=== PATIENT | male | born 1970 | race Caucasian/White ===

== ENCOUNTER 2019-03-03 21:16 | Emergency (ER) | payer MEDICAID, OTHER ==
[~2019-03-03] VITALS: Ht 175.3 cm; Wt 76.4 kg
[2019-03-03] MEDS ORDERED: INSLAN SQ (21:50)
[2019-03-03] MEDS ORDERED: INSU100V SQ (21:50)
[2019-03-03 22:01] LABS: GLUCOSE,POINT OF CARE 80 MG/DL (70-110)
[2019-03-03 22:55] LABS: GLUCOSE,POINT OF CARE 22 MG/DL (70-110)
[2019-03-03 22:59] LABS: BASOPHILS % (AUTO) 2.2 % (0.0-2.0); EOSINOPHILS % (AUTO) 1.8 % (1.0-6.0); HEMATOCRIT 44.8 % (41-53); HEMOGLOBIN 15.2 g/dL (13.5-17.5); LYMPHOCYTES # (AUTO) 4.1 K/uL (1.0-4.8); LYMPHOCYTES % (AUTO) 48.2 % (22.0-44.0); MEAN CORPUSCULAR HEMOGLOBIN 30.5 pg (26.0-34.0); MEAN CORPUSCULAR VOLUME 90 fL (80-100); MONOCYTES # (AUTO) 0.9 K/uL (0.1-1.0); MONOCYTES % (AUTO) 10.4 % (2.0-9.0); NEUTROPHILS # (AUTO) 3.2 K/uL (1.8-7.7); NEUTROPHILS % (AUTO) 37.4 % (40.0-70.0); PLATELET COUNT (AUTO) 322 K/uL (150-450); RED BLOOD CELL COUNT(AUTO) 4.99 MIL/uL (4.50-5.90); RED CELL DISTRIBUTION WIDTH 16.5 % (11.5-14.5)
[2019-03-03 23:12] LABS: ANION GAP 12 mmol/L (8-16); CALCIUM, TOTAL 10.1 mg/dL (8.8-10.5); CARBON DIOXIDE 29 mmol/L (22-29); CHLORIDE 103 mmol/L (98-107); CREATININE 0.97 mg/dL (0.60-1.30); GLOMERULAR FILTR. RATE CALC > 60 mL/min (>60); POTASSIUM 3.2 mmol/L (3.5-5.1); SODIUM SERUM 144 mmol/L (136-145); UREA NITROGEN, BLOOD 18 mg/dL (7-18)
[2019-03-03 23:13] LABS: AMPHET/METH SCREEN,URINE POSITIVE (NEGATIVE); BARBITURATE SCREEN, URINE NEGATIVE (NEGATIVE); BENZODIAZEPINES SCREEN,URINE NEGATIVE (NEGATIVE); CANNABINOID SCREEN,URINE NEGATIVE (NEGATIVE); COCAINE SCREEN,URINE NEGATIVE (NEGATIVE); METHADONE SCREEN, URINE NEGATIVE (NEGATIVE); OPIATE SCREEN,URINE NEGATIVE (NEGATIVE)
[2019-03-03 23:14] LABS: GLUCOSE,RANDOM 28 mg/dL (70-110)
[2019-03-03 23:15] LABS: PHENCYCLIDINE SCREEN,URINE NEGATIVE (NEGATIVE)
[2019-03-04 00:05] LABS: GLUCOSE,POINT OF CARE 63 MG/DL (70-110)
[2019-03-04 00:20] VITALS: BP 159/94
[2019-03-04 00:26] LABS: GLUCOSE,POINT OF CARE 96 MG/DL (70-110)
[2019-03-04] MEDS ORDERED: CloNIDine HCL 0.2 MG TABLET PO ONE (00:30)
[2019-03-04] MEDS ORDERED: ChlordiazePOXIDE HCL 25 MG CAPSULE PO ONE (00:30)
== END 2019-03-04 01:06 | disposition home or self-care (01) ==
LOC: EMS 21:23
DX: F10.10 Alcohol abuse, uncomplicated (principal); F15.10 Other stimulant abuse, uncomplicated; E10.8 Type 1 diabetes mellitus with unspecified complications; Z79.4 Long term (current) use of insulin; F32.9 Major depressive disorder, single episode, unspecified; E78.00 Pure hypercholesterolemia, unspecified; F17.210 Nicotine dependence, cigarettes, uncomplicated; F14.90 Cocaine use, unspecified, uncomplicated; F12.90 Cannabis use, unspecified, uncomplicated
CPT/HCPCS: 36415; 80048; 80307; 82962; 85025; 99283; G0480

== ENCOUNTER 2019-03-13 09:05 | Emergency (ER) | payer MEDICAID, OTHER ==
[~2019-03-13] VITALS: Ht 177.8 cm; Wt 77.3 kg
[~2019-03-13 09:05] MED LIST: INSLAN SQ; INSU100V SQ
[2019-03-13 09:26] LABS: GLUCOSE,POINT OF CARE 565 MG/DL (70-110)
[2019-03-13] MEDS ORDERED: INSULIN LISPRO 100 UNITS/ML SQ ONE (09:45)
[2019-03-13] MEDS ORDERED: SODIUM CHLORIDE 0.9% 1,000 ML IV ONE (09:45)
[2019-03-13 10:08] LABS: BASOPHILS % (AUTO) 1.1 % (0.0-2.0); EOSINOPHILS % (AUTO) 0.8 % (1.0-6.0); HEMATOCRIT 41.5 % (41-53); HEMOGLOBIN 14.2 g/dL (13.5-17.5); LYMPHOCYTES # (AUTO) 1.7 K/uL (1.0-4.8); LYMPHOCYTES % (AUTO) 37.3 % (22.0-44.0); MEAN CORPUSCULAR HEMOGLOBIN 30.6 pg (26.0-34.0); MEAN CORPUSCULAR HGB CONC 34.2 G/dL (31.0-37.0); MEAN CORPUSCULAR VOLUME 90 fL (80-100); MONOCYTES # (AUTO) 0.4 K/uL (0.1-1.0); MONOCYTES % (AUTO) 8.1 % (2.0-9.0); NEUTROPHILS # (AUTO) 2.5 K/uL (1.8-7.7); NEUTROPHILS % (AUTO) 52.7 % (40.0-70.0); PLATELET COUNT (AUTO) 229 K/uL (150-450); RED BLOOD CELL COUNT(AUTO) 4.64 MIL/uL (4.50-5.90); RED CELL DISTRIBUTION WIDTH 16.1 % (11.5-14.5)
[2019-03-13 10:36] LABS: GLUCOSE,POINT OF CARE 368 MG/DL (70-110)
[2019-03-13 10:49] LABS: ALANINE AMINOTRANSFERASE 36 U/L (12-78); ALBUMIN 3.6 g/dL (3.4-5.0); ALKALINE PHOSPHATASE 91 U/L (46-116); ANION GAP 8 mmol/L (8-16); ASPARTATE AMINOTRANSFERASE 22 U/L (15-37); BILIRUBIN,TOTAL 0.3 mg/dL (0.1-1.0); CALCIUM, TOTAL 9.1 mg/dL (8.8-10.5); CARBON DIOXIDE 27 mmol/L (22-29); CHLORIDE 97 mmol/L (98-107); CREATINE KINASE, TOTAL ONLY 176 U/L (39-308); CREATININE 1.07 mg/dL (0.60-1.30); GLOMERULAR FILTR. RATE CALC > 60 mL/min (>60); POTASSIUM 4.4 mmol/L (3.5-5.1); SODIUM SERUM 132 mmol/L (136-145); TOTAL PROTEIN, SERUM 6.9 g/dL (6.4-8.2); UREA NITROGEN, BLOOD 11 mg/dL (7-18)
[2019-03-13 10:51] LABS: GLUCOSE,RANDOM 447 mg/dL (70-110)
[2019-03-13 10:54] VITALS: BP 142/84
[2019-03-13 11:31] LABS: GLUCOSE,POINT OF CARE 162 MG/DL (70-110)
== END 2019-03-13 11:30 | disposition home or self-care (01) ==
LOC: EMS 09:08
DX: E11.65 Type 2 diabetes mellitus with hyperglycemia (principal); E78.00 Pure hypercholesterolemia, unspecified; F41.9 Anxiety disorder, unspecified; F32.9 Major depressive disorder, single episode, unspecified; F17.210 Nicotine dependence, cigarettes, uncomplicated; F11.90 Opioid use, unspecified, uncomplicated; F15.90 Other stimulant use, unspecified, uncomplicated; Z79.4 Long term (current) use of insulin
CPT/HCPCS: 36415; 80053; 82550; 82962; 85025; 96360; 96372; 99283; J7030; 82948; J1815

== ENCOUNTER 2019-06-30 02:23 | Inpatient (IN) | payer MEDICAID ==
[~2019-06-30] VITALS: Ht 177.8 cm; Wt 77.8 kg
[2019-06-30] MEDS ORDERED: HALOPERIDOL 5 MG TABLET PO PRN (02:45)
[2019-06-30] MEDS ORDERED: MAGNESIUM HYDROXIDE SUSPENSION 30 ML UDCUP PO PRN (04:00)
[2019-06-30] MEDS ORDERED: ACETAMINOPHEN 325 MG TABLET PO PRN (04:00)
[2019-06-30] MEDS ORDERED: LOPERAMIDE HCL 2 MG CAPSULE PO PRN (04:00)
[2019-06-30] MEDS ORDERED: CloNIDine HCL 0.1 MG TABLET PO PRN (04:00)
[2019-06-30] MEDS ORDERED: ALBUTEROL SULFATE HFA 90 MCG/PUFF 8 GM INHALER IH PRN (04:00)
[2019-06-30] MEDS ORDERED: ONDANSETRON HCL 4 MG TABLET PO PRN (04:00)
[2019-06-30] MEDS ORDERED: GuaiFENesin/D-METHORPHAN [SUGAR-FREE] 200-20MG/10 ML SYRUP UDCUP PO PRN (04:00)
[2019-06-30] MEDS ORDERED: NICOTINE 14 MG/24 HOUR PATCH TD PRN (04:00)
[2019-06-30] MEDS ORDERED: PETROLATUM,WHITE 28 GM JELLY TP PRN (04:00)
[2019-06-30] MEDS ORDERED: MAG HYDROX/AL HYDROX/SIMETH ES 30 ML SUSPENSION UDCUP PO PRN (04:00)
[2019-06-30] MEDS ORDERED: IBUPROFEN 400 MG TABLET PO PRN (04:00)
[2019-06-30] MEDS ORDERED: DOCUSATE SODIUM 100 MG CAPSULE PO PRN (04:00)
[2019-06-30] MEDS ORDERED: GLUCAGON,HUMAN RECOMBINANT 1 MG VIAL IM PRN (04:15)
[2019-06-30 04:27] VITALS: BP 162/103
[2019-06-30 06:48] LABS: GLUCOMETER DEV NAME(LOC) BV2S.; GLUCOSE,POINT OF CARE 179 MG/DL (70-110)
[2019-06-30] MEDS: INSULIN LISPRO 100 UNITS/ML SQ PRN (06:51)
[2019-06-30] MEDS: LORazepam 1 MG TABLET PO PRN (08:55)
[2019-06-30 09:06] VITALS: BP 140/92
[2019-06-30 11:06] LABS: GLUCOMETER DEV NAME(LOC) BV2S.; GLUCOSE,POINT OF CARE 101 MG/DL (70-110)
[2019-06-30] MEDS: BuPROPion HCL XL 150 MG ER TABLET PO SCH (12:34)
[2019-06-30] MEDS: SERTRALINE HCL 100 MG TABLET PO SCH (12:34)
[2019-06-30] MEDS: NALTREXONE HCL 50 MG TABLET PO SCH (12:34)
[2019-06-30 16:07] VITALS: BP 131/94
[2019-06-30 16:53] LABS: GLUCOMETER DEV NAME(LOC) BV2S.; GLUCOSE,POINT OF CARE 405 MG/DL (70-110)
[2019-06-30] MEDS ORDERED: INSULIN LISPRO 100 UNITS/ML SQ ONE (17:15)
[2019-06-30 19:22] LABS: GLUCOMETER DEV NAME(LOC) BV2S.; GLUCOSE,POINT OF CARE 161 MG/DL (70-110)
[2019-06-30] MEDS: QUEtiapine FUMARATE 25 MG TABLET PO SCH (21:46)
[2019-06-30] MEDS: INSULIN GLARGINE,HUM.REC.ANLOG 100 UNITS/ML SQ SCH (21:49)
[2019-06-30 22:01] LABS: GLUCOMETER DEV NAME(LOC) BV2S.; GLUCOSE,POINT OF CARE 90 MG/DL (70-110)
[2019-06-30 22:01] LABS: GLUCOMETER DEV NAME(LOC) BV2S.; GLUCOSE,POINT OF CARE 96 MG/DL (70-110)
[2019-07-01 01:04] VITALS: BP 129/86
[2019-07-01 05:55] LABS: GLUCOMETER DEV NAME(LOC) BV2S.; GLUCOSE,POINT OF CARE 176 MG/DL (70-110)
[2019-07-01] MEDS: INSULIN LISPRO 100 UNITS/ML SQ PRN ×4 (06:46→21:12)
[2019-07-01 07:23] LABS: HEMATOCRIT 38.9 % (41-53); HEMOGLOBIN 13.3 g/dL (13.5-17.5); LYMPHOCYTES # (AUTO) 1.9 K/uL (1.0-4.8); LYMPHOCYTES % (AUTO) 28.5 % (22.0-44.0); MEAN CORPUSCULAR HEMOGLOBIN 28.7 pg (26.0-34.0); MEAN CORPUSCULAR HGB CONC 34.2 G/dL (31.0-37.0); MEAN CORPUSCULAR VOLUME 84 fL (80-100); MONOCYTES % (AUTO) 14.3 % (2.0-9.0); NEUTROPHILS # (AUTO) 3.6 K/uL (1.8-7.7); NEUTROPHILS % (AUTO) 54.2 % (40.0-70.0); PLATELET COUNT (AUTO) 283 K/uL (150-450); RED BLOOD CELL COUNT(AUTO) 4.62 MIL/uL (4.50-5.90)
[2019-07-01 07:58] LABS: ALANINE AMINOTRANSFERASE 69 U/L (12-78); ALBUMIN 3.9 g/dL (3.4-5.0); ALKALINE PHOSPHATASE 117 U/L (46-116); ANION GAP 6 mmol/L (8-16); ASPARTATE AMINOTRANSFERASE 33 U/L (15-37); BILIRUBIN,TOTAL 0.5 mg/dL (0.1-1.0); CALCIUM, TOTAL 9.3 mg/dL (8.8-10.5); CARBON DIOXIDE 32 mmol/L (22-29); CHLORIDE 99 mmol/L (98-107); CHOL/HDL RATIO 3.4 (4.2-7.3); CHOLESTEROL 215 mg/dL (131-200); CREATININE 0.92 mg/dL (0.60-1.30); FREE T4 (FREE THYROXINE) 1.17 ng/dL (0.76-1.46); GLOMERULAR FILTR. RATE CALC > 60 mL/min (>60); GLUCOSE,RANDOM 155 mg/dL (70-110); HDL CHOLESTEROL 63 mg/dL (40-60); LDL CHOL (CALC.) 130 mg/dL (0-130); POTASSIUM 4.1 mmol/L (3.5-5.1); SODIUM SERUM 137 mmol/L (136-145); THYROID STIMULATING HORMONE 2.05 uIU/mL (0.36-3.74); TRIGLYCERIDES 111 mg/dL (15-150); UREA NITROGEN, BLOOD 13 mg/dL (7-18)
[2019-07-01 08:26] VITALS: BP 136/77
[2019-07-01] MEDS: NALTREXONE HCL 50 MG TABLET PO SCH (08:30)
[2019-07-01] MEDS: SERTRALINE HCL 100 MG TABLET PO SCH (08:30)
[2019-07-01] MEDS: BuPROPion HCL XL 150 MG ER TABLET PO SCH (08:30)
[2019-07-01] MEDS: LORazepam 1 MG TABLET PO PRN ×2 (08:30→16:53)
[2019-07-01 11:13] LABS: GLUCOMETER DEV NAME(LOC) BV2S.; GLUCOSE,POINT OF CARE 293 MG/DL (70-110)
[2019-07-01 16:57] LABS: GLUCOMETER DEV NAME(LOC) BV2S.; GLUCOSE,POINT OF CARE 385 MG/DL (70-110)
[2019-07-01 18:11] VITALS: BP 111/67
[2019-07-01] MEDS: INSULIN GLARGINE,HUM.REC.ANLOG 100 UNITS/ML SQ SCH (21:13)
[2019-07-01] MEDS: QUEtiapine FUMARATE 25 MG TABLET PO SCH (21:14)
[2019-07-01 21:20] LABS: GLUCOMETER DEV NAME(LOC) BV2S.; GLUCOSE,POINT OF CARE 233 MG/DL (70-110)
[2019-07-02 06:31] VITALS: BP 121/74
[2019-07-02 06:31] LABS: GLUCOMETER DEV NAME(LOC) BV2S.; GLUCOSE,POINT OF CARE 134 MG/DL (70-110)
[2019-07-02] MEDS: NALTREXONE HCL 50 MG TABLET PO SCH (08:31)
[2019-07-02] MEDS: SERTRALINE HCL 100 MG TABLET PO SCH (08:32)
[2019-07-02 08:48] VITALS: BP 114/69
[2019-07-02] MEDS ORDERED: BuPROPion HCL XL 150 MG ER TABLET PO SCH (09:00)
[2019-07-02] MEDS: INSULIN LISPRO 100 UNITS/ML SQ PRN ×3 (10:57→20:32)
[2019-07-02 11:16] LABS: GLUCOMETER DEV NAME(LOC) BV2S.; GLUCOSE,POINT OF CARE 350 MG/DL (70-110)
[2019-07-02] MEDS: BusPIRone HCL 5 MG TABLET PO SCH ×2 (12:37→16:35)
[2019-07-02 16:08] VITALS: BP 116/71
[2019-07-02 17:02] LABS: GLUCOMETER DEV NAME(LOC) BV2S.; GLUCOSE,POINT OF CARE 183 MG/DL (70-110)
[2019-07-02] MEDS: QUEtiapine FUMARATE 25 MG TABLET PO SCH (20:29)
[2019-07-02] MEDS: INSULIN GLARGINE,HUM.REC.ANLOG 100 UNITS/ML SQ SCH (20:32)
[2019-07-02 21:08] LABS: GLUCOMETER DEV NAME(LOC) BV2S.; GLUCOSE,POINT OF CARE 251 MG/DL (70-110)
[2019-07-03 06:22] VITALS: BP 106/68
[2019-07-03 06:32] LABS: GLUCOMETER DEV NAME(LOC) BV2S.; GLUCOSE,POINT OF CARE 196 MG/DL (70-110)
[2019-07-03] MEDS: INSULIN LISPRO 100 UNITS/ML SQ PRN ×4 (06:58→20:28)
[2019-07-03 08:32] VITALS: BP 120/75
[2019-07-03] MEDS: BuPROPion HCL XL 150 MG ER TABLET PO SCH (09:01)
[2019-07-03] MEDS: SERTRALINE HCL 100 MG TABLET PO SCH (09:04)
[2019-07-03] MEDS: NALTREXONE HCL 50 MG TABLET PO SCH (09:04)
[2019-07-03] MEDS: BusPIRone HCL 5 MG TABLET PO SCH ×2 (09:05→11:56)
[2019-07-03] MEDS ORDERED: LEVO125T95 PO (12:56)
[2019-07-03 14:42] LABS: GLUCOMETER DEV NAME(LOC) BV2S.; GLUCOSE,POINT OF CARE 399 MG/DL (70-110)
[2019-07-03] MEDS: LORazepam 1 MG TABLET PO PRN ×2 (14:51→18:36)
[2019-07-03 16:52] VITALS: BP 103/66
[2019-07-03] MEDS: BusPIRone HCL 10 MG TABLET PO SCH (17:36)
[2019-07-03 19:09] LABS: GLUCOMETER DEV NAME(LOC) BV2S.; GLUCOSE,POINT OF CARE 378 MG/DL (70-110)
[2019-07-03 20:44] LABS: GLUCOMETER DEV NAME(LOC) BV2S.; GLUCOSE,POINT OF CARE 321 MG/DL (70-110)
[2019-07-03] MEDS: QUEtiapine FUMARATE 25 MG TABLET PO SCH (21:23)
[2019-07-03] MEDS: INSULIN GLARGINE,HUM.REC.ANLOG 100 UNITS/ML SQ SCH (21:27)
[2019-07-04 00:07] VITALS: BP 104/64
[2019-07-04 07:00] LABS: GLUCOMETER DEV NAME(LOC) BV2S.; GLUCOSE,POINT OF CARE 137 MG/DL (70-110)
[2019-07-04 08:13] VITALS: BP 100/61
[2019-07-04] MEDS: BusPIRone HCL 10 MG TABLET PO SCH ×3 (08:44→17:04)
[2019-07-04] MEDS: NALTREXONE HCL 50 MG TABLET PO SCH (08:44)
[2019-07-04] MEDS: BuPROPion HCL XL 150 MG ER TABLET PO SCH (08:44)
[2019-07-04] MEDS: SERTRALINE HCL 100 MG TABLET PO SCH (08:45)
[2019-07-04 11:29] LABS: GLUCOMETER DEV NAME(LOC) BV2S.; GLUCOSE,POINT OF CARE 498 MG/DL (70-110)
[2019-07-04] MEDS ORDERED: INSULIN LISPRO 100 UNITS/ML SQ ONE (12:00)
[2019-07-04] MEDS: LORazepam 1 MG TABLET PO PRN ×2 (13:17→17:04)
[2019-07-04 16:10] VITALS: BP 116/71
[2019-07-04 16:32] LABS: GLUCOMETER DEV NAME(LOC) BV2S.; GLUCOSE,POINT OF CARE 230 MG/DL (70-110)
[2019-07-04] MEDS: INSULIN LISPRO 100 UNITS/ML SQ PRN ×2 (17:09→20:53)
[2019-07-04 19:49] LABS: GLUCOMETER DEV NAME(LOC) BV2S.; GLUCOSE,POINT OF CARE 289 MG/DL (70-110)
[2019-07-04] MEDS: QUEtiapine FUMARATE 25 MG TABLET PO SCH (20:46)
[2019-07-04] MEDS ORDERED: INSULIN GLARGINE,HUM.REC.ANLOG 100 UNITS/ML SQ SCH (21:00)
[2019-07-04 23:39] LABS: GLUCOMETER DEV NAME(LOC) BV2S.; GLUCOSE,POINT OF CARE 66 MG/DL (70-110)
[2019-07-05 00:40] LABS: GLUCOMETER DEV NAME(LOC) BV2S.; GLUCOSE,POINT OF CARE 191 MG/DL (70-110)
[2019-07-05 06:04] VITALS: BP 114/72
[2019-07-05 06:22] LABS: GLUCOMETER DEV NAME(LOC) BV2S.; GLUCOSE,POINT OF CARE 182 MG/DL (70-110)
[2019-07-05] MEDS: INSULIN LISPRO 100 UNITS/ML SQ PRN ×2 (06:43→10:57)
[2019-07-05] MEDS: BusPIRone HCL 10 MG TABLET PO SCH ×3 (08:30→17:03)
[2019-07-05] MEDS: SERTRALINE HCL 100 MG TABLET PO SCH (08:30)
[2019-07-05] MEDS: NALTREXONE HCL 50 MG TABLET PO SCH (08:30)
[2019-07-05] MEDS: BuPROPion HCL XL 150 MG ER TABLET PO SCH (08:31)
[2019-07-05 08:41] VITALS: BP 108/67
[2019-07-05] MEDS: LORazepam 1 MG TABLET PO PRN ×2 (10:09→15:11)
[2019-07-05 11:06] LABS: GLUCOMETER DEV NAME(LOC) BV2S.; GLUCOSE,POINT OF CARE 360 MG/DL (70-110)
[2019-07-05] MEDS ORDERED: GLUCAGON,HUMAN RECOMBINANT 1 MG VIAL IM PRN (15:45)
[2019-07-05 16:00] VITALS: BP 131/71
[2019-07-05] MEDS ORDERED: INSULIN LISPRO 100 UNITS/ML SQ ONE ×2 (17:00→19:00)
[2019-07-05 17:09] LABS: GLUCOMETER DEV NAME(LOC) BV2S.; GLUCOSE,POINT OF CARE 465 MG/DL (70-110)
[2019-07-05 18:51] LABS: GLUCOMETER DEV NAME(LOC) BV2S.; GLUCOSE,POINT OF CARE 417 MG/DL (70-110)
[2019-07-05] MEDS: QUEtiapine FUMARATE 25 MG TABLET PO SCH (20:13)
[2019-07-05] MEDS: INSULIN GLARGINE,HUM.REC.ANLOG 100 UNITS/ML SQ SCH (20:16)
[2019-07-05 20:38] LABS: GLUCOMETER DEV NAME(LOC) BV2S.; GLUCOSE,POINT OF CARE 182 MG/DL (70-110)
[2019-07-05] MEDS ORDERED: INSULIN GLARGINE,HUM.REC.ANLOG 100 UNITS/ML SQ SCH (21:00)
[2019-07-06 00:50] VITALS: BP 109/62
[2019-07-06] MEDS ORDERED: PNEUMOCOCCAL VACCINE POLYVALENT 0.5 ML VIAL [PPSV23] IM ONE (01:15)
[2019-07-06 06:29] LABS: GLUCOMETER DEV NAME(LOC) BV2S.; GLUCOSE,POINT OF CARE 147 MG/DL (70-110)
[2019-07-06] MEDS: INSULIN LISPRO 100 UNITS/ML SQ PRN ×3 (06:40→17:11)
[2019-07-06] MEDS: SERTRALINE HCL 100 MG TABLET PO SCH (08:35)
[2019-07-06] MEDS: BuPROPion HCL XL 150 MG ER TABLET PO SCH (08:35)
[2019-07-06] MEDS: NALTREXONE HCL 50 MG TABLET PO SCH (08:35)
[2019-07-06] MEDS: BusPIRone HCL 10 MG TABLET PO SCH ×3 (08:35→17:08)
[2019-07-06 08:48] VITALS: BP 111/63
[2019-07-06] MEDS: LORazepam 1 MG TABLET PO PRN ×2 (10:58→17:08)
[2019-07-06 11:16] LABS: GLUCOMETER DEV NAME(LOC) BV2S.; GLUCOSE,POINT OF CARE 395 MG/DL (70-110)
[2019-07-06 18:47] VITALS: BP 112/70
[2019-07-06] MEDS: INSULIN GLARGINE,HUM.REC.ANLOG 100 UNITS/ML SQ SCH (20:25)
[2019-07-06] MEDS: QUEtiapine FUMARATE 25 MG TABLET PO SCH (20:25)
[2019-07-06 21:10] LABS: GLUCOMETER DEV NAME(LOC) BV2S.; GLUCOSE,POINT OF CARE 268 MG/DL (70-110)
[2019-07-06 21:10] LABS: GLUCOMETER DEV NAME(LOC) BV2S.; GLUCOSE,POINT OF CARE 143 MG/DL (70-110)
[2019-07-07 05:57] VITALS: BP 105/76
[2019-07-07 06:25] LABS: GLUCOMETER DEV NAME(LOC) BV2S.; GLUCOSE,POINT OF CARE 234 MG/DL (70-110)
[2019-07-07] MEDS: INSULIN LISPRO 100 UNITS/ML SQ PRN ×4 (06:41→20:21)
[2019-07-07 08:28] VITALS: BP 110/79
[2019-07-07] MEDS: SERTRALINE HCL 100 MG TABLET PO SCH (08:45)
[2019-07-07] MEDS: BusPIRone HCL 10 MG TABLET PO SCH ×3 (08:45→16:38)
[2019-07-07] MEDS: NALTREXONE HCL 50 MG TABLET PO SCH (08:45)
[2019-07-07] MEDS: BuPROPion HCL XL 150 MG ER TABLET PO SCH (08:45)
[2019-07-07] MEDS: LORazepam 1 MG TABLET PO PRN ×2 (09:34→17:22)
[2019-07-07 11:11] LABS: GLUCOMETER DEV NAME(LOC) BV2S.; GLUCOSE,POINT OF CARE 306 MG/DL (70-110)
[2019-07-07 16:18] VITALS: BP 138/73
[2019-07-07 17:18] LABS: GLUCOMETER DEV NAME(LOC) BV2S.; GLUCOSE,POINT OF CARE 319 MG/DL (70-110)
[2019-07-07] MEDS: QUEtiapine FUMARATE 25 MG TABLET PO SCH (20:18)
[2019-07-07] MEDS: INSULIN GLARGINE,HUM.REC.ANLOG 100 UNITS/ML SQ SCH (20:21)
[2019-07-07 20:47] LABS: GLUCOMETER DEV NAME(LOC) BV2S.; GLUCOSE,POINT OF CARE 344 MG/DL (70-110)
[2019-07-07] MEDS: ZOLPIDEM TARTRATE 10 MG TABLET PO PRN (21:55)
[2019-07-08 06:19] VITALS: BP 111/75
[2019-07-08] MEDS: INSULIN LISPRO 100 UNITS/ML SQ PRN ×4 (06:24→20:14)
[2019-07-08 06:34] LABS: GLUCOMETER DEV NAME(LOC) BV2S.; GLUCOSE,POINT OF CARE 171 MG/DL (70-110)
[2019-07-08] MEDS: LORazepam 1 MG TABLET PO PRN ×2 (07:11→14:19)
[2019-07-08 08:32] VITALS: BP 107/70
[2019-07-08] MEDS: SERTRALINE HCL 100 MG TABLET PO SCH (08:33)
[2019-07-08] MEDS: NALTREXONE HCL 50 MG TABLET PO SCH (08:33)
[2019-07-08] MEDS: BusPIRone HCL 10 MG TABLET PO SCH ×3 (08:33→16:37)
[2019-07-08] MEDS: BuPROPion HCL XL 150 MG ER TABLET PO SCH (08:33)
[2019-07-08 11:08] LABS: GLUCOMETER DEV NAME(LOC) BV2S.; GLUCOSE,POINT OF CARE 343 MG/DL (70-110)
[2019-07-08 16:24] VITALS: BP 103/65
[2019-07-08] MEDS: INSULIN GLARGINE,HUM.REC.ANLOG 100 UNITS/ML SQ SCH (16:39)
[2019-07-08 17:08] LABS: GLUCOMETER DEV NAME(LOC) BV2S.; GLUCOSE,POINT OF CARE 249 MG/DL (70-110)
[2019-07-08] MEDS: QUEtiapine FUMARATE 25 MG TABLET PO SCH (20:08)
[2019-07-08 20:56] LABS: GLUCOMETER DEV NAME(LOC) BV2S.; GLUCOSE,POINT OF CARE 226 MG/DL (70-110)
[2019-07-09 03:59] VITALS: BP 115/70
[2019-07-09] MEDS: LORazepam 1 MG TABLET PO PRN ×3 (04:01→21:06)
[2019-07-09 06:26] LABS: GLUCOMETER DEV NAME(LOC) BV2S.; GLUCOSE,POINT OF CARE 189 MG/DL (70-110)
[2019-07-09] MEDS: INSULIN LISPRO 100 UNITS/ML SQ PRN ×2 (07:15→10:56)
[2019-07-09] MEDS: BusPIRone HCL 10 MG TABLET PO SCH ×3 (09:23→17:07)
[2019-07-09] MEDS: BuPROPion HCL XL 150 MG ER TABLET PO SCH (09:24)
[2019-07-09] MEDS: SERTRALINE HCL 100 MG TABLET PO SCH (09:24)
[2019-07-09] MEDS: NALTREXONE HCL 50 MG TABLET PO SCH (09:24)
[2019-07-09] MEDS: INSULIN GLARGINE,HUM.REC.ANLOG 100 UNITS/ML SQ SCH ×2 (09:35→17:19)
[2019-07-09 10:03] LABS: GLUCOMETER DEV NAME(LOC) BV2S.; GLUCOSE,POINT OF CARE 323 MG/DL (70-110)
[2019-07-09 10:35] VITALS: BP 120/74
[2019-07-09 11:11] LABS: GLUCOMETER DEV NAME(LOC) BV2S.; GLUCOSE,POINT OF CARE 364 MG/DL (70-110)
[2019-07-09 16:10] VITALS: BP 141/83
[2019-07-09 17:03] LABS: GLUCOMETER DEV NAME(LOC) BV2S.; GLUCOSE,POINT OF CARE 88 MG/DL (70-110)
[2019-07-09] MEDS: QUEtiapine FUMARATE 25 MG TABLET PO SCH (20:04)
[2019-07-09 21:07] LABS: GLUCOMETER DEV NAME(LOC) BV2S.; GLUCOSE,POINT OF CARE 94 MG/DL (70-110)
[2019-07-10 06:27] LABS: GLUCOMETER DEV NAME(LOC) BV2S.; GLUCOSE,POINT OF CARE 74 MG/DL (70-110)
[2019-07-10 07:11] VITALS: BP 105/75
[2019-07-10 08:00] VITALS: BP 110/66
[2019-07-10] MEDS: NALTREXONE HCL 50 MG TABLET PO SCH (08:08)
[2019-07-10] MEDS: LORazepam 1 MG TABLET PO PRN ×3 (08:08→20:41)
[2019-07-10] MEDS: SERTRALINE HCL 100 MG TABLET PO SCH (08:08)
[2019-07-10] MEDS: BusPIRone HCL 10 MG TABLET PO SCH ×3 (08:08→17:07)
[2019-07-10] MEDS: BuPROPion HCL XL 150 MG ER TABLET PO SCH (08:08)
[2019-07-10] MEDS: INSULIN GLARGINE,HUM.REC.ANLOG 100 UNITS/ML SQ SCH ×2 (09:13→16:17)
[2019-07-10 11:21] LABS: GLUCOMETER DEV NAME(LOC) BV2S.; GLUCOSE,POINT OF CARE 267 MG/DL (70-110)
[2019-07-10] MEDS: INSULIN LISPRO 100 UNITS/ML SQ PRN ×2 (13:48→16:19)
[2019-07-10 16:08] VITALS: BP 123/86
[2019-07-10 16:22] LABS: GLUCOMETER DEV NAME(LOC) BV2S.; GLUCOSE,POINT OF CARE 418 MG/DL (70-110)
[2019-07-10] MEDS: QUEtiapine FUMARATE 25 MG TABLET PO SCH (20:04)
[2019-07-10 20:21] LABS: GLUCOMETER DEV NAME(LOC) BV2S.; GLUCOSE,POINT OF CARE 96 MG/DL (70-110)
[2019-07-11 06:09] VITALS: BP 124/76
[2019-07-11 06:22] LABS: GLUCOMETER DEV NAME(LOC) BV2S.; GLUCOSE,POINT OF CARE 74 MG/DL (70-110)
[2019-07-11] MEDS: BuPROPion HCL XL 150 MG ER TABLET PO SCH (08:08)
[2019-07-11] MEDS: SERTRALINE HCL 100 MG TABLET PO SCH (08:09)
[2019-07-11] MEDS: NALTREXONE HCL 50 MG TABLET PO SCH (08:09)
[2019-07-11] MEDS: BusPIRone HCL 10 MG TABLET PO SCH ×3 (08:09→17:55)
[2019-07-11 08:23] VITALS: BP 125/69
[2019-07-11] MEDS: INSULIN GLARGINE,HUM.REC.ANLOG 100 UNITS/ML SQ SCH ×2 (08:52→18:04)
[2019-07-11] MEDS: INSULIN LISPRO 100 UNITS/ML SQ PRN ×3 (11:33→20:21)
[2019-07-11 11:40] LABS: GLUCOMETER DEV NAME(LOC) BV2S.; GLUCOSE,POINT OF CARE 394 MG/DL (70-110)
[2019-07-11] MEDS: LORazepam 1 MG TABLET PO PRN ×3 (13:06→21:57)
[2019-07-11] MEDS ORDERED: QUET25TA34 PO (15:21)
[2019-07-11] MEDS ORDERED: BUSP10TA23 PO (15:21)
[2019-07-11] MEDS ORDERED: BUPR-47 PO (15:21)
[2019-07-11] MEDS ORDERED: NALT50TA PO (15:21)
[2019-07-11 16:43] VITALS: BP 120/72
[2019-07-11] MEDS: QUEtiapine FUMARATE 25 MG TABLET PO SCH (20:20)
[2019-07-11 20:28] LABS: GLUCOMETER DEV NAME(LOC) BV2S.; GLUCOSE,POINT OF CARE 274 MG/DL (70-110)
[2019-07-11 20:28] LABS: GLUCOMETER DEV NAME(LOC) BV2S.; GLUCOSE,POINT OF CARE 240 MG/DL (70-110)
[2019-07-11] MEDS: ZOLPIDEM TARTRATE 10 MG TABLET PO PRN (21:00)
[2019-07-12 00:23] VITALS: BP_SYST 112; BP_SYST 130; BP_DIAS 69; BP_DIAS 77
[2019-07-12 06:21] LABS: GLUCOMETER DEV NAME(LOC) BV2S.; GLUCOSE,POINT OF CARE 212 MG/DL (70-110)
[2019-07-12] MEDS: INSULIN LISPRO 100 UNITS/ML SQ PRN ×4 (06:43→20:28)
[2019-07-12] MEDS: SERTRALINE HCL 100 MG TABLET PO SCH (08:37)
[2019-07-12] MEDS: BuPROPion HCL XL 150 MG ER TABLET PO SCH (08:37)
[2019-07-12] MEDS: BusPIRone HCL 10 MG TABLET PO SCH ×3 (08:37→16:41)
[2019-07-12] MEDS: NALTREXONE HCL 50 MG TABLET PO SCH (08:37)
[2019-07-12] MEDS: INSULIN GLARGINE,HUM.REC.ANLOG 100 UNITS/ML SQ SCH ×2 (08:46→16:51)
[2019-07-12 09:22] VITALS: BP 128/78
[2019-07-12 11:51] LABS: GLUCOMETER DEV NAME(LOC) BV2S.; GLUCOSE,POINT OF CARE 209 MG/DL (70-110)
[2019-07-12] MEDS ORDERED: SERT100T12 PO (13:00)
[2019-07-12 16:19] VITALS: BP 124/79
[2019-07-12] MEDS: LORazepam 1 MG TABLET PO PRN ×2 (16:40→21:03)
[2019-07-12 16:57] LABS: GLUCOMETER DEV NAME(LOC) BV2S.; GLUCOSE,POINT OF CARE 246 MG/DL (70-110)
[2019-07-12 20:33] LABS: GLUCOMETER DEV NAME(LOC) BV2S.; GLUCOSE,POINT OF CARE 288 MG/DL (70-110)
[2019-07-12] MEDS: QUEtiapine FUMARATE 25 MG TABLET PO SCH (21:03)
[2019-07-12 22:18] LABS: GLUCOMETER DEV NAME(LOC) BV2S.; GLUCOSE,POINT OF CARE 69 MG/DL (70-110)
[2019-07-13 00:27] VITALS: BP 109/74
[2019-07-13 06:30] LABS: GLUCOMETER DEV NAME(LOC) BV2S.; GLUCOSE,POINT OF CARE 173 MG/DL (70-110)
[2019-07-13] MEDS: BusPIRone HCL 10 MG TABLET PO SCH (08:15)
[2019-07-13] MEDS: SERTRALINE HCL 100 MG TABLET PO SCH (08:15)
[2019-07-13] MEDS: BuPROPion HCL XL 150 MG ER TABLET PO SCH (08:15)
[2019-07-13] MEDS: NALTREXONE HCL 50 MG TABLET PO SCH (08:15)
[2019-07-13] MEDS: INSULIN GLARGINE,HUM.REC.ANLOG 100 UNITS/ML SQ SCH (08:19)
[2019-07-13 08:31] VITALS: BP 127/80
[2019-07-13] MEDS ORDERED: INSLAN SQ (09:05)
[2019-07-13 11:25] LABS: HIV 1-2 SCREEN 4TH GEN W/RFLX Non Reactive (Non Reactive)
== END 2019-07-13 09:50 | disposition home or self-care (01) | DRG 751 ==
LOC: B2S 03:00
PROVIDERS: ADMIT Psychiatry & Neurology Psychiatry; ATTEND Psychiatry & Neurology Psychiatry
DX: F33.2 Major depressive disorder, recurrent severe without psychotic features (principal); R45.851 Suicidal ideations; E11.9 Type 2 diabetes mellitus without complications; D64.9 Anemia, unspecified; F10.129 Alcohol abuse with intoxication, unspecified; F17.200 Nicotine dependence, unspecified, uncomplicated; F41.9 Anxiety disorder, unspecified; J44.9 Chronic obstructive pulmonary disease, unspecified; R45.87 Impulsiveness; Z59.0 Homelessness; Z79.899 Other long term (current) drug therapy
CPT/HCPCS: 83036; 84439; 84443; 86803; 87081; 87350; 87389; J1815

== ENCOUNTER 2019-07-25 14:26 | Inpatient (IN) | payer MEDICAID ==
[~2019-07-25] VITALS: Ht 177.8 cm; Wt 73.9 kg
[~2019-07-25 14:26] MED LIST changes: +BUPR-47 PO; +BUSP10TA23 PO; +NALT50TA PO; +QUET25TA34 PO; +SERT100T12 PO
[2019-07-25] MEDS ORDERED: QUET25TA PO (16:06)
[2019-07-25] MEDS ORDERED: BUSP10TA23 PO (16:06)
[2019-07-25] MEDS ORDERED: NALT50TA6 PO (16:06)
[2019-07-25] MEDS ORDERED: BUPR450T3 PO (16:06)
[2019-07-25 16:43] VITALS: BP 130/84
[2019-07-25] MEDS ORDERED: HALOPERIDOL 5 MG TABLET PO PRN (16:45)
[2019-07-25 17:16] VITALS: BP 125/74
[2019-07-25] MEDS: LORazepam 2 MG TABLET PO PRN (17:24)
[2019-07-25] MEDS ORDERED: GLUCAGON,HUMAN RECOMBINANT 1 MG VIAL IM PRN (18:30)
[2019-07-25] MEDS ORDERED: PNEUMOCOCCAL VACCINE POLYVALENT 0.5 ML VIAL [PPSV23] IM ONE (18:30)
[2019-07-25] MEDS: INSULIN LISPRO 100 UNITS/ML SQ PRN (21:53)
[2019-07-25 21:56] LABS: GLUCOMETER DEV NAME(LOC) BV3S.; GLUCOSE,POINT OF CARE 277 MG/DL (70-110)
[2019-07-26 06:27] VITALS: BP 114/71
[2019-07-26 06:49] LABS: GLUCOMETER DEV NAME(LOC) BV3S.; GLUCOSE,POINT OF CARE 300 MG/DL (70-110)
[2019-07-26] MEDS: INSULIN LISPRO 100 UNITS/ML SQ PRN ×4 (07:06→21:34)
[2019-07-26 08:49] VITALS: BP 117/65
[2019-07-26] MEDS ORDERED: INSULIN GLARGINE,HUM.REC.ANLOG 100 UNITS/ML SQ SCH (09:00)
[2019-07-26] MEDS ORDERED: CloNIDine HCL 0.1 MG TABLET PO PRN (10:00)
[2019-07-26] MEDS ORDERED: MAGNESIUM HYDROXIDE SUSPENSION 30 ML UDCUP PO PRN (10:00)
[2019-07-26] MEDS ORDERED: DOCUSATE SODIUM 100 MG CAPSULE PO PRN (10:00)
[2019-07-26] MEDS ORDERED: ACETAMINOPHEN 325 MG TABLET PO PRN (10:00)
[2019-07-26] MEDS ORDERED: ALBUTEROL SULFATE HFA 90 MCG/PUFF 8 GM INHALER IH PRN (10:00)
[2019-07-26] MEDS ORDERED: NICOTINE 14 MG/24 HOUR PATCH TD PRN (10:00)
[2019-07-26] MEDS ORDERED: ONDANSETRON HCL 4 MG TABLET PO PRN (10:00)
[2019-07-26] MEDS ORDERED: IBUPROFEN 400 MG TABLET PO PRN (10:00)
[2019-07-26] MEDS ORDERED: PETROLATUM,WHITE 28 GM JELLY TP PRN (10:00)
[2019-07-26] MEDS ORDERED: MAG HYDROX/AL HYDROX/SIMETH ES 30 ML SUSPENSION UDCUP PO PRN (10:00)
[2019-07-26] MEDS ORDERED: LOPERAMIDE HCL 2 MG CAPSULE PO PRN (10:00)
[2019-07-26] MEDS: BusPIRone HCL 10 MG TABLET PO SCH ×2 (14:07→16:52)
[2019-07-26] MEDS: LORazepam 2 MG TABLET PO PRN (14:16)
[2019-07-26 16:28] VITALS: BP 113/64
[2019-07-26] MEDS: INSULIN GLARGINE,HUM.REC.ANLOG 100 UNITS/ML SQ SCH (16:55)
[2019-07-26 17:30] LABS: GLUCOMETER DEV NAME(LOC) BV3S.; GLUCOSE,POINT OF CARE 287 MG/DL (70-110)
[2019-07-26 17:30] LABS: GLUCOMETER DEV NAME(LOC) BV3S.; GLUCOSE,POINT OF CARE 335 MG/DL (70-110)
[2019-07-26] MEDS: QUEtiapine FUMARATE 25 MG TABLET PO SCH (21:17)
[2019-07-26 21:19] LABS: GLUCOMETER DEV NAME(LOC) BV2S.; GLUCOSE,POINT OF CARE 335 MG/DL (70-110)
[2019-07-26] MEDS: ZOLPIDEM TARTRATE 10 MG TABLET PO PRN (22:39)
[2019-07-27 00:19] VITALS: BP 104/63
[2019-07-27 06:24] LABS: GLUCOMETER DEV NAME(LOC) BV2S.; GLUCOSE,POINT OF CARE 254 MG/DL (70-110)
[2019-07-27] MEDS: INSULIN LISPRO 100 UNITS/ML SQ PRN ×4 (06:50→21:11)
[2019-07-27 08:11] VITALS: BP 113/62
[2019-07-27] MEDS: BuPROPion HCL XL 150 MG ER TABLET PO SCH (08:25)
[2019-07-27] MEDS: BusPIRone HCL 10 MG TABLET PO SCH ×3 (08:25→16:11)
[2019-07-27] MEDS: SERTRALINE HCL 100 MG TABLET PO SCH (08:25)
[2019-07-27] MEDS: NALTREXONE HCL 50 MG TABLET PO SCH (08:25)
[2019-07-27] MEDS: INSULIN GLARGINE,HUM.REC.ANLOG 100 UNITS/ML SQ SCH (08:33)
[2019-07-27] MEDS: LORazepam 2 MG TABLET PO PRN ×2 (11:22→16:17)
[2019-07-27 11:40] LABS: GLUCOMETER DEV NAME(LOC) BV2S.; GLUCOSE,POINT OF CARE 215 MG/DL (70-110)
[2019-07-27 16:01] VITALS: BP 107/60
[2019-07-27 16:30] LABS: GLUCOMETER DEV NAME(LOC) BV2S.; GLUCOSE,POINT OF CARE 277 MG/DL (70-110)
[2019-07-27] MEDS: QUEtiapine FUMARATE 25 MG TABLET PO SCH (20:14)
[2019-07-27 20:25] LABS: GLUCOMETER DEV NAME(LOC) BV2S.; GLUCOSE,POINT OF CARE 389 MG/DL (70-110)
[2019-07-27] MEDS: ZOLPIDEM TARTRATE 10 MG TABLET PO PRN (21:03)
[2019-07-28 01:09] VITALS: BP 99/60
[2019-07-28 06:20] LABS: GLUCOMETER DEV NAME(LOC) BV2S.; GLUCOSE,POINT OF CARE 318 MG/DL (70-110)
[2019-07-28] MEDS: INSULIN LISPRO 100 UNITS/ML SQ PRN ×4 (06:45→20:27)
[2019-07-28 08:03] VITALS: BP 124/64
[2019-07-28] MEDS: BuPROPion HCL XL 150 MG ER TABLET PO SCH (08:48)
[2019-07-28] MEDS: NALTREXONE HCL 50 MG TABLET PO SCH (08:48)
[2019-07-28] MEDS: SERTRALINE HCL 100 MG TABLET PO SCH (08:48)
[2019-07-28] MEDS: BusPIRone HCL 10 MG TABLET PO SCH ×3 (08:48→16:48)
[2019-07-28] MEDS: INSULIN GLARGINE,HUM.REC.ANLOG 100 UNITS/ML SQ SCH ×2 (08:56→17:16)
[2019-07-28 11:09] LABS: GLUCOMETER DEV NAME(LOC) BV2S.; GLUCOSE,POINT OF CARE 330 MG/DL (70-110)
[2019-07-28] MEDS: LORazepam 2 MG TABLET PO PRN ×2 (11:56→18:44)
[2019-07-28 16:08] VITALS: BP 122/77
[2019-07-28 17:12] LABS: GLUCOMETER DEV NAME(LOC) BV2S.; GLUCOSE,POINT OF CARE 269 MG/DL (70-110)
[2019-07-28] MEDS: QUEtiapine FUMARATE 25 MG TABLET PO SCH (20:00)
[2019-07-28] MEDS: ZOLPIDEM TARTRATE 10 MG TABLET PO PRN (20:00)
[2019-07-28 20:05] LABS: GLUCOMETER DEV NAME(LOC) BV2S.; GLUCOSE,POINT OF CARE 215 MG/DL (70-110)
[2019-07-28 20:31] VITALS: BP 120/76
[2019-07-29 02:00] VITALS: BP 113/65
[2019-07-29 03:49] LABS: GLUCOMETER DEV NAME(LOC) BV2S.; GLUCOSE,POINT OF CARE 120 MG/DL (70-110)
[2019-07-29 06:25] LABS: GLUCOMETER DEV NAME(LOC) BV2S.; GLUCOSE,POINT OF CARE 97 MG/DL (70-110)
[2019-07-29 08:39] VITALS: BP 115/71
[2019-07-29] MEDS: BusPIRone HCL 10 MG TABLET PO SCH ×3 (08:43→16:53)
[2019-07-29] MEDS: BuPROPion HCL XL 150 MG ER TABLET PO SCH (08:43)
[2019-07-29] MEDS: SERTRALINE HCL 100 MG TABLET PO SCH (08:43)
[2019-07-29] MEDS: NALTREXONE HCL 50 MG TABLET PO SCH (08:43)
[2019-07-29] MEDS: INSULIN GLARGINE,HUM.REC.ANLOG 100 UNITS/ML SQ SCH ×2 (08:49→16:38)
[2019-07-29 09:08] LABS: GLUCOMETER DEV NAME(LOC) BV2S.; GLUCOSE,POINT OF CARE 318 MG/DL (70-110)
[2019-07-29] MEDS: LORazepam 2 MG TABLET PO PRN ×2 (09:59→16:16)
[2019-07-29] MEDS: INSULIN LISPRO 100 UNITS/ML SQ PRN ×2 (11:00→20:46)
[2019-07-29] MEDS ORDERED: GLUCAGON,HUMAN RECOMBINANT 1 MG VIAL IM PRN (11:15)
[2019-07-29 12:29] LABS: GLUCOMETER DEV NAME(LOC) BV2S.; GLUCOSE,POINT OF CARE 398 MG/DL (70-110)
[2019-07-29 16:19] VITALS: BP 124/77
[2019-07-29] MEDS ORDERED: INSULIN LISPRO 100 UNITS/ML SQ ONE ×2 (16:30→20:30)
[2019-07-29 17:13] LABS: GLUCOMETER DEV NAME(LOC) BV2S.; GLUCOSE,POINT OF CARE 551 MG/DL (70-110)
[2019-07-29 18:27] LABS: GLUCOMETER DEV NAME(LOC) BV2S.; GLUCOSE,POINT OF CARE 387 MG/DL (70-110)
[2019-07-29] MEDS ORDERED: INSULIN GLARGINE,HUM.REC.ANLOG 100 UNITS/ML SQ ONE (19:45)
[2019-07-29] MEDS: QUEtiapine FUMARATE 25 MG TABLET PO SCH (20:14)
[2019-07-29] MEDS: ZOLPIDEM TARTRATE 10 MG TABLET PO PRN (21:05)
[2019-07-29 21:24] LABS: GLUCOMETER DEV NAME(LOC) BV2S.; GLUCOSE,POINT OF CARE 265 MG/DL (70-110)
[2019-07-29 21:47] LABS: GLUCOMETER DEV NAME(LOC) BV2S.; GLUCOSE,POINT OF CARE 165 MG/DL (70-110)
[2019-07-30] MEDS: INSULIN LISPRO 100 UNITS/ML SQ PRN ×3 (06:34→16:47)
[2019-07-30 06:38] LABS: GLUCOMETER DEV NAME(LOC) BV2S.; GLUCOSE,POINT OF CARE 226 MG/DL (70-110)
[2019-07-30 06:39] VITALS: BP 127/81
[2019-07-30 08:43] VITALS: BP 111/72
[2019-07-30] MEDS: BusPIRone HCL 10 MG TABLET PO SCH ×3 (08:55→16:02)
[2019-07-30] MEDS: NALTREXONE HCL 50 MG TABLET PO SCH (08:55)
[2019-07-30] MEDS: SERTRALINE HCL 100 MG TABLET PO SCH (08:55)
[2019-07-30] MEDS: BuPROPion HCL XL 150 MG ER TABLET PO SCH (08:55)
[2019-07-30] MEDS: INSULIN GLARGINE,HUM.REC.ANLOG 100 UNITS/ML SQ SCH ×2 (09:06→16:47)
[2019-07-30] MEDS: LORazepam 2 MG TABLET PO PRN ×2 (10:51→18:03)
[2019-07-30 11:14] LABS: GLUCOMETER DEV NAME(LOC) BV2S.; GLUCOSE,POINT OF CARE 301 MG/DL (70-110)
[2019-07-30 16:08] VITALS: BP 118/71
[2019-07-30 17:05] LABS: GLUCOMETER DEV NAME(LOC) BV2S.; GLUCOSE,POINT OF CARE 205 MG/DL (70-110)
[2019-07-30] MEDS: QUEtiapine FUMARATE 25 MG TABLET PO SCH (20:13)
[2019-07-30] MEDS: ZOLPIDEM TARTRATE 10 MG TABLET PO PRN (21:01)
[2019-07-30 21:25] LABS: GLUCOMETER DEV NAME(LOC) BV2S.; GLUCOSE,POINT OF CARE 112 MG/DL (70-110)
[2019-07-31 03:19] VITALS: BP 130/80
[2019-07-31 06:16] LABS: GLUCOMETER DEV NAME(LOC) BV2S.; GLUCOSE,POINT OF CARE 328 MG/DL (70-110)
[2019-07-31] MEDS: INSULIN LISPRO 100 UNITS/ML SQ PRN ×4 (06:25→20:19)
[2019-07-31 08:06] LABS: BASOPHILS % (AUTO) 2.1 % (0.0-2.0); EOSINOPHILS % (AUTO) 1.6 % (1.0-6.0); HEMATOCRIT 40.3 % (41-53); HEMOGLOBIN 13.4 g/dL (13.5-17.5); LYMPHOCYTES # (AUTO) 1.9 K/uL (1.0-4.8); MEAN CORPUSCULAR HEMOGLOBIN 27.7 pg (26.0-34.0); MEAN CORPUSCULAR HGB CONC 33.2 G/dL (31.0-37.0); MEAN CORPUSCULAR VOLUME 84 fL (80-100); MONOCYTES # (AUTO) 0.6 K/uL (0.1-1.0); MONOCYTES % (AUTO) 11.8 % (2.0-9.0); NEUTROPHILS # (AUTO) 2.7 K/uL (1.8-7.7); NEUTROPHILS % (AUTO) 49.5 % (40.0-70.0); PLATELET COUNT (AUTO) 190 K/uL (150-450); RED BLOOD CELL COUNT(AUTO) 4.83 MIL/uL (4.50-5.90); RED CELL DISTRIBUTION WIDTH 17.2 % (11.5-14.5)
[2019-07-31 08:19] LABS: HEMOGLOBIN A1C 10.3 % (3.8-5.6)
[2019-07-31 08:38] VITALS: BP 123/63
[2019-07-31 08:40] LABS: ALANINE AMINOTRANSFERASE 42 U/L (12-78); ALBUMIN 3.4 g/dL (3.4-5.0); ALKALINE PHOSPHATASE 69 U/L (46-116); ANION GAP 3 mmol/L (8-16); ASPARTATE AMINOTRANSFERASE 31 U/L (15-37); BILIRUBIN,TOTAL 0.3 mg/dL (0.1-1.0); CALCIUM, TOTAL 9.4 mg/dL (8.8-10.5); CARBON DIOXIDE 32 mmol/L (22-29); CHLORIDE 98 mmol/L (98-107); CHOL/HDL RATIO 4.1 (4.2-7.3); CHOLESTEROL 195 mg/dL (131-200); CREATININE 1.04 mg/dL (0.60-1.30); FREE T4 (FREE THYROXINE) 0.97 ng/dL (0.76-1.46); GLOMERULAR FILTR. RATE CALC > 60 mL/min (>60); GLUCOSE,RANDOM 383 mg/dL (70-110); HDL CHOLESTEROL 48 mg/dL (40-60); LDL CHOL (CALC.) 125 mg/dL (0-130); POTASSIUM 4.3 mmol/L (3.5-5.1); SODIUM SERUM 133 mmol/L (136-145); THYROID STIMULATING HORMONE 1.92 uIU/mL (0.36-3.74); TOTAL PROTEIN, SERUM 6.6 g/dL (6.4-8.2); TRIGLYCERIDES 109 mg/dL (15-150); UREA NITROGEN, BLOOD 13 mg/dL (7-18)
[2019-07-31] MEDS: NALTREXONE HCL 50 MG TABLET PO SCH (08:57)
[2019-07-31] MEDS: BuPROPion HCL XL 150 MG ER TABLET PO SCH (08:57)
[2019-07-31] MEDS: BusPIRone HCL 10 MG TABLET PO SCH ×3 (08:57→17:17)
[2019-07-31] MEDS: SERTRALINE HCL 100 MG TABLET PO SCH (08:57)
[2019-07-31] MEDS: INSULIN GLARGINE,HUM.REC.ANLOG 100 UNITS/ML SQ SCH ×2 (10:01→20:18)
[2019-07-31] MEDS: LORazepam 2 MG TABLET PO PRN ×3 (10:10→20:15)
[2019-07-31 10:17] LABS: GLUCOMETER DEV NAME(LOC) BV2S.; GLUCOSE,POINT OF CARE 433 MG/DL (70-110)
[2019-07-31 11:33] LABS: GLUCOMETER DEV NAME(LOC) BV2S.; GLUCOSE,POINT OF CARE 387 MG/DL (70-110)
[2019-07-31 16:13] VITALS: BP 122/76
[2019-07-31 16:14] LABS: GLUCOMETER DEV NAME(LOC) BV2S.; GLUCOSE,POINT OF CARE 324 MG/DL (70-110)
[2019-07-31] MEDS: QUEtiapine FUMARATE 25 MG TABLET PO SCH (20:15)
[2019-07-31 20:24] LABS: GLUCOMETER DEV NAME(LOC) BV2S.; GLUCOSE,POINT OF CARE 237 MG/DL (70-110)
[2019-07-31] MEDS: ZOLPIDEM TARTRATE 10 MG TABLET PO PRN (21:39)
[2019-07-31] MEDS: GuaiFENesin/D-METHORPHAN [SUGAR-FREE] 200-20MG/10 ML SYRUP UDCUP PO PRN (22:09)
[2019-08-01 00:33] VITALS: BP 119/77
[2019-08-01 06:23] LABS: GLUCOMETER DEV NAME(LOC) BV2S.; GLUCOSE,POINT OF CARE 243 MG/DL (70-110)
[2019-08-01] MEDS: INSULIN LISPRO 100 UNITS/ML SQ PRN ×4 (06:48→20:38)
[2019-08-01] MEDS: BuPROPion HCL XL 150 MG ER TABLET PO SCH (08:11)
[2019-08-01] MEDS: THIAMINE HCL 100 MG TABLET PO SCH (08:12)
[2019-08-01] MEDS: BusPIRone HCL 10 MG TABLET PO SCH ×3 (08:12→17:07)
[2019-08-01] MEDS: SERTRALINE HCL 100 MG TABLET PO SCH (08:12)
[2019-08-01] MEDS: MULTIVITAMINS WITH MINERALS, THERAPEUTIC TABLET PO SCH (08:12)
[2019-08-01 08:30] VITALS: BP 134/78
[2019-08-01] MEDS: NALTREXONE HCL 50 MG TABLET PO SCH (08:41)
[2019-08-01] MEDS: INSULIN GLARGINE,HUM.REC.ANLOG 100 UNITS/ML SQ SCH ×2 (08:47→20:38)
[2019-08-01] MEDS: LORazepam 2 MG TABLET PO PRN ×2 (09:32→13:30)
[2019-08-01] MEDS: FOLIC ACID 1 MG TABLET PO SCH (09:54)
[2019-08-01 10:50] LABS: GLUCOMETER DEV NAME(LOC) BV2S.; GLUCOSE,POINT OF CARE 320 MG/DL (70-110)
[2019-08-01 16:08] VITALS: BP 138/74
[2019-08-01 17:04] LABS: GLUCOMETER DEV NAME(LOC) BV2S.; GLUCOSE,POINT OF CARE 265 MG/DL (70-110)
[2019-08-01 20:39] LABS: GLUCOMETER DEV NAME(LOC) BV2S.; GLUCOSE,POINT OF CARE 195 MG/DL (70-110)
[2019-08-01] MEDS: QUEtiapine FUMARATE 25 MG TABLET PO SCH (20:49)
[2019-08-01] MEDS: ZOLPIDEM TARTRATE 10 MG TABLET PO PRN (22:02)
[2019-08-02 00:45] VITALS: BP 140/69
[2019-08-02 06:29] LABS: GLUCOMETER DEV NAME(LOC) BV2S.; GLUCOSE,POINT OF CARE 182 MG/DL (70-110)
[2019-08-02] MEDS: INSULIN LISPRO 100 UNITS/ML SQ PRN ×4 (06:50→20:28)
[2019-08-02 08:25] VITALS: BP 114/65
[2019-08-02] MEDS: BusPIRone HCL 10 MG TABLET PO SCH ×3 (08:32→16:27)
[2019-08-02] MEDS: SERTRALINE HCL 100 MG TABLET PO SCH (08:33)
[2019-08-02] MEDS: NALTREXONE HCL 50 MG TABLET PO SCH (08:33)
[2019-08-02] MEDS: FOLIC ACID 1 MG TABLET PO SCH (08:33)
[2019-08-02] MEDS: BuPROPion HCL XL 150 MG ER TABLET PO SCH (08:33)
[2019-08-02] MEDS: MULTIVITAMINS WITH MINERALS, THERAPEUTIC TABLET PO SCH (08:33)
[2019-08-02] MEDS: THIAMINE HCL 100 MG TABLET PO SCH (08:33)
[2019-08-02] MEDS: INSULIN GLARGINE,HUM.REC.ANLOG 100 UNITS/ML SQ SCH ×2 (08:45→20:28)
[2019-08-02 11:49] LABS: GLUCOMETER DEV NAME(LOC) BV2S.; GLUCOSE,POINT OF CARE 221 MG/DL (70-110)
[2019-08-02] MEDS: LORazepam 2 MG TABLET PO PRN ×2 (14:29→18:39)
[2019-08-02 16:22] VITALS: BP 111/70
[2019-08-02 16:56] LABS: GLUCOMETER DEV NAME(LOC) BV2S.; GLUCOSE,POINT OF CARE 160 MG/DL (70-110)
[2019-08-02] MEDS: QUEtiapine FUMARATE 25 MG TABLET PO SCH (20:19)
[2019-08-02] MEDS: ZOLPIDEM TARTRATE 10 MG TABLET PO PRN (20:52)
[2019-08-02 20:54] LABS: GLUCOMETER DEV NAME(LOC) BV2S.; GLUCOSE,POINT OF CARE 207 MG/DL (70-110)
[2019-08-03 00:30] VITALS: BP 123/75
[2019-08-03] MEDS: INSULIN LISPRO 100 UNITS/ML SQ PRN ×2 (06:36→20:13)
[2019-08-03 07:03] LABS: GLUCOMETER DEV NAME(LOC) BV2S.; GLUCOSE,POINT OF CARE 158 MG/DL (70-110)
[2019-08-03 08:19] VITALS: BP 109/63
[2019-08-03] MEDS: NALTREXONE HCL 50 MG TABLET PO SCH (08:35)
[2019-08-03] MEDS: MULTIVITAMINS WITH MINERALS, THERAPEUTIC TABLET PO SCH (08:35)
[2019-08-03] MEDS: BuPROPion HCL XL 150 MG ER TABLET PO SCH (08:35)
[2019-08-03] MEDS: THIAMINE HCL 100 MG TABLET PO SCH (08:35)
[2019-08-03] MEDS: BusPIRone HCL 10 MG TABLET PO SCH ×3 (08:35→16:04)
[2019-08-03] MEDS: FOLIC ACID 1 MG TABLET PO SCH (08:35)
[2019-08-03] MEDS: SERTRALINE HCL 100 MG TABLET PO SCH (08:35)
[2019-08-03] MEDS: INSULIN GLARGINE,HUM.REC.ANLOG 100 UNITS/ML SQ SCH ×2 (08:44→20:13)
[2019-08-03] MEDS ORDERED: INSULIN LISPRO 100 UNITS/ML SQ ONE (11:45)
[2019-08-03 11:58] LABS: GLUCOMETER DEV NAME(LOC) BV2S.; GLUCOSE,POINT OF CARE 406 MG/DL (70-110)
[2019-08-03] MEDS: LORazepam 2 MG TABLET PO PRN ×2 (12:02→16:04)
[2019-08-03 13:15] LABS: GLUCOMETER DEV NAME(LOC) BV2S.; GLUCOSE,POINT OF CARE 204 MG/DL (70-110)
[2019-08-03 17:00] LABS: GLUCOMETER DEV NAME(LOC) BV2S.; GLUCOSE,POINT OF CARE 79 MG/DL (70-110)
[2019-08-03 18:14] VITALS: BP 135/90
[2019-08-03] MEDS: QUEtiapine FUMARATE 25 MG TABLET PO SCH (20:02)
[2019-08-03 20:23] LABS: GLUCOMETER DEV NAME(LOC) BV2S.; GLUCOSE,POINT OF CARE 379 MG/DL (70-110)
[2019-08-03] MEDS: ZOLPIDEM TARTRATE 10 MG TABLET PO PRN (20:45)
[2019-08-03] MEDS: GuaiFENesin/D-METHORPHAN [SUGAR-FREE] 200-20MG/10 ML SYRUP UDCUP PO PRN (22:25)
[2019-08-03 22:45] LABS: GLUCOMETER DEV NAME(LOC) BV2S.; GLUCOSE,POINT OF CARE 72 MG/DL (70-110)
[2019-08-04 01:26] VITALS: BP 142/49
[2019-08-04 06:24] LABS: GLUCOMETER DEV NAME(LOC) BV2S.; GLUCOSE,POINT OF CARE 129 MG/DL (70-110)
[2019-08-04] MEDS: INSULIN LISPRO 100 UNITS/ML SQ PRN ×4 (06:42→20:22)
[2019-08-04 08:18] VITALS: BP 119/67
[2019-08-04] MEDS: NALTREXONE HCL 50 MG TABLET PO SCH (08:19)
[2019-08-04] MEDS: SERTRALINE HCL 100 MG TABLET PO SCH (08:20)
[2019-08-04] MEDS: FOLIC ACID 1 MG TABLET PO SCH (08:20)
[2019-08-04] MEDS: THIAMINE HCL 100 MG TABLET PO SCH (08:20)
[2019-08-04] MEDS: MULTIVITAMINS WITH MINERALS, THERAPEUTIC TABLET PO SCH (08:20)
[2019-08-04] MEDS: BusPIRone HCL 10 MG TABLET PO SCH ×3 (08:20→16:24)
[2019-08-04] MEDS: BuPROPion HCL XL 150 MG ER TABLET PO SCH (08:20)
[2019-08-04] MEDS: INSULIN GLARGINE,HUM.REC.ANLOG 100 UNITS/ML SQ SCH ×2 (08:31→20:22)
[2019-08-04] MEDS: LORazepam 2 MG TABLET PO PRN ×3 (10:57→20:18)
[2019-08-04 11:13] LABS: GLUCOMETER DEV NAME(LOC) BV2S.; GLUCOSE,POINT OF CARE 302 MG/DL (70-110)
[2019-08-04 16:05] VITALS: BP 134/79
[2019-08-04 17:06] LABS: GLUCOMETER DEV NAME(LOC) BV2S.; GLUCOSE,POINT OF CARE 206 MG/DL (70-110)
[2019-08-04] MEDS: QUEtiapine FUMARATE 25 MG TABLET PO SCH (20:18)
[2019-08-04 20:54] LABS: GLUCOMETER DEV NAME(LOC) BV2S.; GLUCOSE,POINT OF CARE 269 MG/DL (70-110)
[2019-08-04] MEDS: ZOLPIDEM TARTRATE 10 MG TABLET PO PRN (21:18)
[2019-08-05 00:57] VITALS: BP 131/82
[2019-08-05] MEDS: LORazepam 2 MG TABLET PO PRN ×4 (01:30→20:37)
[2019-08-05 06:30] LABS: GLUCOMETER DEV NAME(LOC) BV2S.; GLUCOSE,POINT OF CARE 276 MG/DL (70-110)
[2019-08-05] MEDS: INSULIN LISPRO 100 UNITS/ML SQ PRN ×2 (06:56→20:44)
[2019-08-05 08:32] VITALS: BP 125/80
[2019-08-05] MEDS: SERTRALINE HCL 100 MG TABLET PO SCH (08:32)
[2019-08-05] MEDS: NALTREXONE HCL 50 MG TABLET PO SCH (08:32)
[2019-08-05] MEDS: BusPIRone HCL 10 MG TABLET PO SCH ×3 (08:32→16:32)
[2019-08-05] MEDS: BuPROPion HCL XL 150 MG ER TABLET PO SCH (08:32)
[2019-08-05] MEDS: FOLIC ACID 1 MG TABLET PO SCH (08:32)
[2019-08-05] MEDS: MULTIVITAMINS WITH MINERALS, THERAPEUTIC TABLET PO SCH (08:32)
[2019-08-05] MEDS: THIAMINE HCL 100 MG TABLET PO SCH (08:32)
[2019-08-05] MEDS: INSULIN GLARGINE,HUM.REC.ANLOG 100 UNITS/ML SQ SCH ×2 (08:41→20:43)
[2019-08-05] MEDS ORDERED: INSULIN LISPRO 100 UNITS/ML SQ ONE (11:00)
[2019-08-05 12:12] LABS: GLUCOMETER DEV NAME(LOC) BV2S.; GLUCOSE,POINT OF CARE 529 MG/DL (70-110)
[2019-08-05 12:14] LABS: GLUCOMETER DEV NAME(LOC) BV2S.; GLUCOSE,POINT OF CARE 275 MG/DL (70-110)
[2019-08-05 16:00] VITALS: BP 128/79
[2019-08-05 16:20] LABS: GLUCOMETER DEV NAME(LOC) BV2S.; GLUCOSE,POINT OF CARE 72 MG/DL (70-110)
[2019-08-05] MEDS: QUEtiapine FUMARATE 25 MG TABLET PO SCH (20:41)
[2019-08-05 20:53] LABS: GLUCOMETER DEV NAME(LOC) BV2S.; GLUCOSE,POINT OF CARE 288 MG/DL (70-110)
[2019-08-05] MEDS: ZOLPIDEM TARTRATE 10 MG TABLET PO PRN (21:34)
[2019-08-06 01:08] VITALS: BP 143/83
[2019-08-06] MEDS: LORazepam 2 MG TABLET PO PRN ×3 (01:33→17:44)
[2019-08-06] MEDS: INSULIN LISPRO 100 UNITS/ML SQ PRN ×4 (07:23→20:23)
[2019-08-06 07:33] LABS: GLUCOMETER DEV NAME(LOC) BV2S.; GLUCOSE,POINT OF CARE 358 MG/DL (70-110)
[2019-08-06 08:01] VITALS: BP 140/87
[2019-08-06] MEDS: FOLIC ACID 1 MG TABLET PO SCH (08:07)
[2019-08-06] MEDS: BusPIRone HCL 10 MG TABLET PO SCH ×3 (08:07→16:05)
[2019-08-06] MEDS: NALTREXONE HCL 50 MG TABLET PO SCH (08:07)
[2019-08-06] MEDS: BuPROPion HCL XL 150 MG ER TABLET PO SCH (08:07)
[2019-08-06] MEDS: THIAMINE HCL 100 MG TABLET PO SCH (08:07)
[2019-08-06] MEDS: MULTIVITAMINS WITH MINERALS, THERAPEUTIC TABLET PO SCH (08:07)
[2019-08-06] MEDS: SERTRALINE HCL 100 MG TABLET PO SCH (08:07)
[2019-08-06] MEDS: INSULIN GLARGINE,HUM.REC.ANLOG 100 UNITS/ML SQ SCH ×2 (08:12→20:22)
[2019-08-06 12:14] LABS: GLUCOMETER DEV NAME(LOC) BV2S.; GLUCOSE,POINT OF CARE 340 MG/DL (70-110)
[2019-08-06 16:15] LABS: GLUCOMETER DEV NAME(LOC) BV2S.; GLUCOSE,POINT OF CARE 193 MG/DL (70-110)
[2019-08-06 16:42] VITALS: BP 118/73
[2019-08-06] MEDS: QUEtiapine FUMARATE 25 MG TABLET PO SCH (20:18)
[2019-08-06 20:41] LABS: GLUCOMETER DEV NAME(LOC) BV2S.; GLUCOSE,POINT OF CARE 132 MG/DL (70-110)
[2019-08-06] MEDS: ZOLPIDEM TARTRATE 10 MG TABLET PO PRN (21:33)
[2019-08-06] MEDS ORDERED: INSLAN SQ (22:45)
[2019-08-07 00:36] VITALS: BP 112/70
[2019-08-07] MEDS: LORazepam 2 MG TABLET PO PRN ×4 (00:40→21:58)
[2019-08-07 06:29] LABS: GLUCOMETER DEV NAME(LOC) BV3S.; GLUCOSE,POINT OF CARE 124 MG/DL (70-110)
[2019-08-07] MEDS: INSULIN LISPRO 100 UNITS/ML SQ PRN ×3 (06:40→16:38)
[2019-08-07 08:19] VITALS: BP 121/76
[2019-08-07] MEDS: MULTIVITAMINS WITH MINERALS, THERAPEUTIC TABLET PO SCH (09:22)
[2019-08-07] MEDS: BuPROPion HCL XL 150 MG ER TABLET PO SCH (09:22)
[2019-08-07] MEDS: THIAMINE HCL 100 MG TABLET PO SCH (09:23)
[2019-08-07] MEDS: BusPIRone HCL 10 MG TABLET PO SCH ×3 (09:23→16:37)
[2019-08-07] MEDS: SERTRALINE HCL 100 MG TABLET PO SCH (09:23)
[2019-08-07] MEDS: FOLIC ACID 1 MG TABLET PO SCH (09:23)
[2019-08-07] MEDS: NALTREXONE HCL 50 MG TABLET PO SCH (09:23)
[2019-08-07] MEDS: INSULIN GLARGINE,HUM.REC.ANLOG 100 UNITS/ML SQ SCH ×2 (10:31→20:42)
[2019-08-07 11:25] LABS: GLUCOMETER DEV NAME(LOC) BV3S.; GLUCOSE,POINT OF CARE 329 MG/DL (70-110)
[2019-08-07 16:08] VITALS: BP 131/81
[2019-08-07 16:58] LABS: GLUCOMETER DEV NAME(LOC) BV3S.; GLUCOSE,POINT OF CARE 246 MG/DL (70-110)
[2019-08-07] MEDS ORDERED: FOLI0.4T14 PO (18:48)
[2019-08-07] MEDS ORDERED: MULT-1239 PO (18:48)
[2019-08-07] MEDS ORDERED: THIA100T92 PO (18:50)
[2019-08-07] MEDS ORDERED: NALT50TA6 PO (18:55)
[2019-08-07] MEDS ORDERED: BUPR100 PO (18:56)
[2019-08-07] MEDS: QUEtiapine FUMARATE 25 MG TABLET PO SCH (20:40)
[2019-08-07] MEDS: ZOLPIDEM TARTRATE 10 MG TABLET PO PRN (20:40)
[2019-08-07 23:47] LABS: GLUCOMETER DEV NAME(LOC) BV3S.; GLUCOSE,POINT OF CARE 139 MG/DL (70-110)
[2019-08-08 06:11] VITALS: BP 126/78
[2019-08-08 06:33] LABS: GLUCOMETER DEV NAME(LOC) BV3S.; GLUCOSE,POINT OF CARE 259 MG/DL (70-110)
[2019-08-08] MEDS: INSULIN LISPRO 100 UNITS/ML SQ PRN ×2 (07:06→11:36)
[2019-08-08] MEDS: THIAMINE HCL 100 MG TABLET PO SCH (08:20)
[2019-08-08] MEDS: NALTREXONE HCL 50 MG TABLET PO SCH (08:20)
[2019-08-08] MEDS: BusPIRone HCL 10 MG TABLET PO SCH (08:20)
[2019-08-08] MEDS: FOLIC ACID 1 MG TABLET PO SCH (08:20)
[2019-08-08] MEDS: MULTIVITAMINS WITH MINERALS, THERAPEUTIC TABLET PO SCH (08:21)
[2019-08-08] MEDS: BuPROPion HCL XL 150 MG ER TABLET PO SCH (08:21)
[2019-08-08] MEDS: SERTRALINE HCL 100 MG TABLET PO SCH (08:25)
[2019-08-08 08:27] VITALS: BP 103/64
[2019-08-08] MEDS ORDERED: FOLI1 PO (09:09)
[2019-08-08] MEDS: INSULIN GLARGINE,HUM.REC.ANLOG 100 UNITS/ML SQ SCH (09:48)
[2019-08-08 10:24] LABS: GLUCOMETER DEV NAME(LOC) BV3S.; GLUCOSE,POINT OF CARE 327 MG/DL (70-110)
== END 2019-08-08 12:56 | disposition home or self-care (01) | DRG 750 ==
LOC: B3A 16:35 → B2S 07-26 21:25 → B3A 08-06 20:48
PROVIDERS: ADMIT Psychiatry & Neurology Psychiatry; ATTEND Psychiatry & Neurology Psychiatry
DX: F25.0 Schizoaffective disorder, bipolar type (principal); F33.2 Major depressive disorder, recurrent severe without psychotic features; R45.851 Suicidal ideations; E11.9 Type 2 diabetes mellitus without complications; Z59.0 Homelessness; F41.9 Anxiety disorder, unspecified; I10 Essential (primary) hypertension; F10.20 Alcohol dependence, uncomplicated; Y90.9 Presence of alcohol in blood, level not specified; R41.843 Psychomotor deficit; F15.10 Other stimulant abuse, uncomplicated; Z71.51 Drug abuse counseling and surveillance of drug abuser; Z28.21 Immunization not carried out because of patient refusal
CPT/HCPCS: 83036; 84439; 84443; 87081; J1815

== ENCOUNTER 2019-09-09 07:39 | Emergency (ER) | payer MEDICAID, OTHER ==
[~2019-09-09] VITALS: Ht 177.8 cm; Wt 77.3 kg
[~2019-09-09 07:39] MED LIST changes: -BUPR-47 PO; +BUPR450T3 PO; +FOLI1 PO; -INSU100V SQ; +MULT-1239 PO; -NALT50TA PO; +NALT50TA6 PO; +QUET25TA PO; -QUET25TA34 PO; +THIA100T92 PO
[2019-09-09 08:05] LABS: EOSINOPHILS % (AUTO) 0.6 % (1.0-6.0); HEMATOCRIT 43.4 % (41-53); HEMOGLOBIN 13.9 g/dL (13.5-17.5); LYMPHOCYTES # (AUTO) 1.3 K/uL (1.0-4.8); LYMPHOCYTES % (AUTO) 17.1 % (22.0-44.0); MEAN CORPUSCULAR HEMOGLOBIN 26.4 pg (26.0-34.0); MEAN CORPUSCULAR HGB CONC 32.1 G/dL (31.0-37.0); MEAN CORPUSCULAR VOLUME 82 fL (80-100); MONOCYTES # (AUTO) 0.6 K/uL (0.1-1.0); MONOCYTES % (AUTO) 7.6 % (2.0-9.0); NEUTROPHILS # (AUTO) 5.3 K/uL (1.8-7.7); NEUTROPHILS % (AUTO) 72.7 % (40.0-70.0); PLATELET COUNT (AUTO) 283 K/uL (150-450); RED BLOOD CELL COUNT(AUTO) 5.27 MIL/uL (4.50-5.90); RED CELL DISTRIBUTION WIDTH 17.6 % (11.5-14.5)
[2019-09-09 08:16] LABS: ANION GAP 22 mmol/L (8-16); CALCIUM, TOTAL 9.6 mg/dL (8.8-10.5); CARBON DIOXIDE 17 mmol/L (22-29); CHLORIDE 95 mmol/L (98-107); CREATININE 1.03 mg/dL (0.60-1.30); GLOMERULAR FILTR. RATE CALC > 60 mL/min (>60); GLUCOSE,RANDOM 260 mg/dL (70-110); POTASSIUM 4.7 mmol/L (3.5-5.1); SODIUM SERUM 134 mmol/L (136-145); UREA NITROGEN, BLOOD 17 mg/dL (7-18)
[2019-09-09 08:26] LABS: ALANINE AMINOTRANSFERASE 34 U/L (12-78); ALBUMIN 4.6 g/dL (3.4-5.0); ALKALINE PHOSPHATASE 111 U/L (46-116); ASPARTATE AMINOTRANSFERASE 28 U/L (15-37); BILIRUBIN,TOTAL 1.1 mg/dL (0.1-1.0); TOTAL PROTEIN, SERUM 8.5 g/dL (6.4-8.2)
[2019-09-09] MEDS: LORazepam 1 MG TABLET PO ONE (09:41)
[2019-09-09 10:23] VITALS: BP 130/105
== END 2019-09-09 11:04 | disposition home or self-care (01) ==
LOC: EMS 07:41
DX: F32.9 Major depressive disorder, single episode, unspecified (principal); F41.9 Anxiety disorder, unspecified; E11.9 Type 2 diabetes mellitus without complications; E78.00 Pure hypercholesterolemia, unspecified; F17.210 Nicotine dependence, cigarettes, uncomplicated; F14.90 Cocaine use, unspecified, uncomplicated; F12.90 Cannabis use, unspecified, uncomplicated; F19.90 Other psychoactive substance use, unspecified, uncomplicated; Z79.4 Long term (current) use of insulin
CPT/HCPCS: 36415; 80053; 82962; 85025; 99285; G0480

== ENCOUNTER 2019-12-01 20:44 | Inpatient (IN) | payer MEDICAID ==
[~2019-12-01 20:44] MED LIST changes: +FOLI-130 PO; -FOLI1 PO
[2019-12-02 01:30] VITALS: BP 143/76
[2019-12-02] MEDS ORDERED: QUEtiapine FUMARATE 100 MG TABLET PO PRN (02:45)
[2019-12-02] MEDS ORDERED: PNEUMOCOCCAL VACCINE POLYVALENT 0.5 ML VIAL [PPSV23] IM ONE (05:00)
[2019-12-02 05:53] LABS: GLUCOMETER DEV NAME(LOC) BV3N.; GLUCOSE,POINT OF CARE 262 MG/DL (70-110)
[2019-12-02] MEDS ORDERED: GLUCAGON,HUMAN RECOMBINANT 1 MG VIAL IM PRN (08:15)
[2019-12-02 08:23] VITALS: BP 131/81
[2019-12-02] MEDS ORDERED: MAGNESIUM HYDROXIDE SUSPENSION 30 ML UDCUP PO PRN (08:30)
[2019-12-02] MEDS ORDERED: LOPERAMIDE HCL 2 MG CAPSULE PO PRN (08:30)
[2019-12-02] MEDS ORDERED: MAG HYDROX/AL HYDROX/SIMETH ES 30 ML SUSPENSION UDCUP PO PRN (08:30)
[2019-12-02] MEDS ORDERED: GuaiFENesin/D-METHORPHAN [SUGAR-FREE] 200-20MG/10 ML SYRUP UDCUP PO PRN (08:30)
[2019-12-02] MEDS ORDERED: PETROLATUM,WHITE 28 GM JELLY TP PRN (08:30)
[2019-12-02] MEDS ORDERED: ONDANSETRON HCL 4 MG TABLET PO PRN (08:30)
[2019-12-02] MEDS ORDERED: ACETAMINOPHEN 325 MG TABLET PO PRN (08:30)
[2019-12-02] MEDS ORDERED: DOCUSATE SODIUM 100 MG CAPSULE PO PRN (08:30)
[2019-12-02] MEDS ORDERED: ALBUTEROL SULFATE HFA 90 MCG/PUFF 8 GM INHALER IH PRN (08:30)
[2019-12-02] MEDS ORDERED: CloNIDine HCL 0.1 MG TABLET PO PRN (08:30)
[2019-12-02] MEDS ORDERED: NICOTINE 14 MG/24 HOUR PATCH TD PRN (08:30)
[2019-12-02] MEDS: LORazepam 2 MG TABLET PO PRN ×2 (09:23→16:04)
[2019-12-02 09:38] LABS: GLUCOMETER DEV NAME(LOC) BV3N.; GLUCOSE,POINT OF CARE 365 MG/DL (70-110)
[2019-12-02] MEDS: INSULIN GLARGINE,HUM.REC.ANLOG 100 UNITS/ML SQ SCH ×2 (09:55→21:09)
[2019-12-02] MEDS: SERTRALINE HCL 50 MG TABLET PO SCH (11:45)
[2019-12-02 12:00] LABS: GLUCOMETER DEV NAME(LOC) BV3S.; GLUCOSE,POINT OF CARE 290 MG/DL (70-110)
[2019-12-02] MEDS: INSULIN LISPRO 100 UNITS/ML SQ PRN ×3 (12:53→21:09)
[2019-12-02 16:00] VITALS: BP 98/66
[2019-12-02 17:03] LABS: GLUCOMETER DEV NAME(LOC) BV3N.; GLUCOSE,POINT OF CARE 185 MG/DL (70-110)
[2019-12-02] MEDS: QUEtiapine FUMARATE 100 MG TABLET PO SCH (21:06)
[2019-12-02 21:35] LABS: GLUCOMETER DEV NAME(LOC) BV3S.; GLUCOSE,POINT OF CARE 261 MG/DL (70-110)
[2019-12-03 06:13] LABS: GLUCOMETER DEV NAME(LOC) BV3N.; GLUCOSE,POINT OF CARE 123 MG/DL (70-110)
[2019-12-03] MEDS: INSULIN LISPRO 100 UNITS/ML SQ PRN ×3 (06:19→20:42)
[2019-12-03 08:36] VITALS: BP 115/60
[2019-12-03] MEDS: SERTRALINE HCL 50 MG TABLET PO SCH (08:45)
[2019-12-03] MEDS: INSULIN GLARGINE,HUM.REC.ANLOG 100 UNITS/ML SQ SCH ×2 (08:49→20:38)
[2019-12-03 10:53] LABS: GLUCOMETER DEV NAME(LOC) BV3N.; GLUCOSE,POINT OF CARE 160 MG/DL (70-110)
[2019-12-03 16:07] VITALS: BP 112/66
[2019-12-03] MEDS: LORazepam 2 MG TABLET PO PRN (16:48)
[2019-12-03 16:55] LABS: GLUCOMETER DEV NAME(LOC) BV3N.; GLUCOSE,POINT OF CARE 104 MG/DL (70-110)
[2019-12-03] MEDS: QUEtiapine FUMARATE 100 MG TABLET PO SCH (20:36)
[2019-12-03 21:09] LABS: GLUCOMETER DEV NAME(LOC) BV3N.; GLUCOSE,POINT OF CARE 276 MG/DL (70-110)
[2019-12-03] MEDS: ZOLPIDEM TARTRATE 10 MG TABLET PO PRN (21:51)
[2019-12-04 00:25] VITALS: BP 108/65
[2019-12-04 06:09] LABS: GLUCOMETER DEV NAME(LOC) BV3N.; GLUCOSE,POINT OF CARE 145 MG/DL (70-110)
[2019-12-04] MEDS: INSULIN LISPRO 100 UNITS/ML SQ PRN ×4 (06:15→20:53)
[2019-12-04 08:17] VITALS: BP 111/66
[2019-12-04] MEDS: LORazepam 2 MG TABLET PO PRN ×2 (09:14→17:37)
[2019-12-04] MEDS: SERTRALINE HCL 50 MG TABLET PO SCH (09:14)
[2019-12-04] MEDS: INSULIN GLARGINE,HUM.REC.ANLOG 100 UNITS/ML SQ SCH ×2 (09:38→20:48)
[2019-12-04 11:48] LABS: GLUCOMETER DEV NAME(LOC) BV3N.; GLUCOSE,POINT OF CARE 120 MG/DL (70-110)
[2019-12-04 16:05] VITALS: BP 114/68
[2019-12-04 17:22] LABS: GLUCOMETER DEV NAME(LOC) BV3N.; GLUCOSE,POINT OF CARE 101 MG/DL (70-110)
[2019-12-04 17:22] LABS: GLUCOMETER DEV NAME(LOC) BV3N.; GLUCOSE,POINT OF CARE 226 MG/DL (70-110)
[2019-12-04] MEDS: QUEtiapine FUMARATE 100 MG TABLET PO SCH (20:45)
[2019-12-04 21:03] LABS: GLUCOMETER DEV NAME(LOC) BV3N.; GLUCOSE,POINT OF CARE 136 MG/DL (70-110)
[2019-12-05 06:01] VITALS: BP 125/70
[2019-12-05 06:21] LABS: GLUCOMETER DEV NAME(LOC) BV3N.; GLUCOSE,POINT OF CARE 182 MG/DL (70-110)
[2019-12-05] MEDS: INSULIN LISPRO 100 UNITS/ML SQ PRN ×4 (06:21→21:05)
[2019-12-05 08:03] VITALS: BP 127/72
[2019-12-05] MEDS: SERTRALINE HCL 50 MG TABLET PO SCH (08:28)
[2019-12-05] MEDS: INSULIN GLARGINE,HUM.REC.ANLOG 100 UNITS/ML SQ SCH ×2 (08:34→21:00)
[2019-12-05] MEDS: IBUPROFEN 400 MG TABLET PO PRN (10:07)
[2019-12-05 14:17] LABS: GLUCOMETER DEV NAME(LOC) BV3N.; GLUCOSE,POINT OF CARE 181 MG/DL (70-110)
[2019-12-05] MEDS: LORazepam 2 MG TABLET PO PRN (16:12)
[2019-12-05 16:16] LABS: GLUCOMETER DEV NAME(LOC) BV3N.; GLUCOSE,POINT OF CARE 325 MG/DL (70-110)
[2019-12-05 16:20] VITALS: BP 110/74
[2019-12-05] MEDS: QUEtiapine FUMARATE 100 MG TABLET PO SCH (20:18)
[2019-12-05] MEDS: ZOLPIDEM TARTRATE 10 MG TABLET PO PRN (20:45)
[2019-12-05 21:34] LABS: GLUCOMETER DEV NAME(LOC) BV3N.; GLUCOSE,POINT OF CARE 157 MG/DL (70-110)
[2019-12-06 05:59] LABS: GLUCOMETER DEV NAME(LOC) BV3N.; GLUCOSE,POINT OF CARE 166 MG/DL (70-110)
[2019-12-06] MEDS: INSULIN LISPRO 100 UNITS/ML SQ PRN ×4 (06:04→20:29)
[2019-12-06 06:18] VITALS: BP 111/73
[2019-12-06 08:38] VITALS: BP 114/73
[2019-12-06] MEDS: SERTRALINE HCL 50 MG TABLET PO SCH (09:14)
[2019-12-06] MEDS: INSULIN GLARGINE,HUM.REC.ANLOG 100 UNITS/ML SQ SCH ×2 (09:16→20:29)
[2019-12-06 11:07] LABS: GLUCOMETER DEV NAME(LOC) BV3N.; GLUCOSE,POINT OF CARE 275 MG/DL (70-110)
[2019-12-06] MEDS: LORazepam 2 MG TABLET PO PRN ×2 (11:11→16:22)
[2019-12-06 16:13] VITALS: BP 109/62
[2019-12-06 16:42] LABS: GLUCOMETER DEV NAME(LOC) BV2S.; GLUCOSE,POINT OF CARE 187 MG/DL (70-110)
[2019-12-06] MEDS: QUEtiapine FUMARATE 100 MG TABLET PO SCH (20:23)
[2019-12-06 20:58] LABS: GLUCOMETER DEV NAME(LOC) BV2S.; GLUCOSE,POINT OF CARE 242 MG/DL (70-110)
[2019-12-06] MEDS: ZOLPIDEM TARTRATE 10 MG TABLET PO PRN (21:15)
[2019-12-07] VITALS: BP 106/62
[2019-12-07 07:00] LABS: GLUCOMETER DEV NAME(LOC) BV2S.; GLUCOSE,POINT OF CARE 106 MG/DL (70-110)
[2019-12-07 07:53] LABS: BASOPHILS % (AUTO) 2.3 % (0.0-2.0); HEMATOCRIT 39.5 % (41-53); HEMOGLOBIN 13.5 g/dL (13.5-17.5); LYMPHOCYTES # (AUTO) 2.5 K/uL (1.0-4.8); MEAN CORPUSCULAR HEMOGLOBIN 28.5 pg (26.0-34.0); MEAN CORPUSCULAR HGB CONC 34.1 G/dL (31.0-37.0); MEAN CORPUSCULAR VOLUME 84 fL (80-100); MONOCYTES # (AUTO) 0.5 K/uL (0.1-1.0); MONOCYTES % (AUTO) 9.3 % (2.0-9.0); NEUTROPHILS # (AUTO) 2.1 K/uL (1.8-7.7); NEUTROPHILS % (AUTO) 39.4 % (40.0-70.0); PLATELET COUNT (AUTO) 238 K/uL (150-450); RED BLOOD CELL COUNT(AUTO) 4.72 MIL/uL (4.50-5.90); RED CELL DISTRIBUTION WIDTH 19.7 % (11.5-14.5)
[2019-12-07 08:07] VITALS: BP 101/64
[2019-12-07 08:14] LABS: HEMOGLOBIN A1C 10.6 % (3.8-5.6)
[2019-12-07] MEDS: SERTRALINE HCL 50 MG TABLET PO SCH (08:14)
[2019-12-07 08:18] LABS: ALANINE AMINOTRANSFERASE 29 U/L (12-78); ALBUMIN 3.3 g/dL (3.4-5.0); ALKALINE PHOSPHATASE 86 U/L (46-116); ANION GAP 2 mmol/L (8-16); ASPARTATE AMINOTRANSFERASE 19 U/L (15-37); BILIRUBIN,TOTAL 0.3 mg/dL (0.1-1.0); CALCIUM, TOTAL 8.8 mg/dL (8.8-10.5); CARBON DIOXIDE 33 mmol/L (22-29); CHLORIDE 106 mmol/L (98-107); CHOL/HDL RATIO 3.4 (4.2-7.3); CHOLESTEROL 184 mg/dL (131-200); CREATININE 0.98 mg/dL (0.60-1.30); GLOMERULAR FILTR. RATE CALC > 60 mL/min (>60); HDL CHOLESTEROL 54 mg/dL (40-60); LDL CHOL (CALC.) 113 mg/dL (0-130); POTASSIUM 3.4 mmol/L (3.5-5.1); SODIUM SERUM 141 mmol/L (136-145); TOTAL PROTEIN, SERUM 6.7 g/dL (6.4-8.2); TRIGLYCERIDES 83 mg/dL (15-150); UREA NITROGEN, BLOOD 16 mg/dL (7-18)
[2019-12-07] MEDS: INSULIN GLARGINE,HUM.REC.ANLOG 100 UNITS/ML SQ SCH (08:27)
[2019-12-07 08:28] LABS: GLUCOSE,RANDOM 47 mg/dL (70-110)
[2019-12-07 08:59] LABS: GLUCOMETER DEV NAME(LOC) BV2S.; GLUCOSE,POINT OF CARE 408 MG/DL (70-110)
[2019-12-07] MEDS: IBUPROFEN 400 MG TABLET PO PRN (10:40)
[2019-12-07] MEDS: INSULIN LISPRO 100 UNITS/ML SQ PRN ×2 (10:51→17:09)
[2019-12-07 11:04] LABS: GLUCOMETER DEV NAME(LOC) BV2S.; GLUCOSE,POINT OF CARE 298 MG/DL (70-110)
[2019-12-07] MEDS: LORazepam 2 MG TABLET PO PRN (16:07)
[2019-12-07 16:22] LABS: GLUCOMETER DEV NAME(LOC) BV2S.; GLUCOSE,POINT OF CARE 183 MG/DL (70-110)
[2019-12-07 16:35] VITALS: BP 120/75
[2019-12-07] MEDS ORDERED: POTASSIUM CHLORIDE 10 MEQ ER TABLET PO ONE (16:45)
[2019-12-07] MEDS: QUEtiapine FUMARATE 100 MG TABLET PO SCH (19:56)
[2019-12-07 20:12] LABS: GLUCOMETER DEV NAME(LOC) BV2S.; GLUCOSE,POINT OF CARE 102 MG/DL (70-110)
[2019-12-07] MEDS ORDERED: INSULIN GLARGINE,HUM.REC.ANLOG 100 UNITS/ML SQ SCH (21:00)
[2019-12-07] MEDS: ZOLPIDEM TARTRATE 10 MG TABLET PO PRN (21:00)
[2019-12-08 06:02] VITALS: BP 116/72
[2019-12-08] MEDS: INSULIN LISPRO 100 UNITS/ML SQ PRN ×2 (06:57→10:55)
[2019-12-08] MEDS: LORazepam 2 MG TABLET PO PRN (06:58)
[2019-12-08 07:05] LABS: GLUCOMETER DEV NAME(LOC) BV2S.; GLUCOSE,POINT OF CARE 146 MG/DL (70-110)
[2019-12-08 08:23] VITALS: BP 112/87
[2019-12-08] MEDS: SERTRALINE HCL 50 MG TABLET PO SCH (08:29)
[2019-12-08] MEDS: INSULIN GLARGINE,HUM.REC.ANLOG 100 UNITS/ML SQ SCH (08:47)
[2019-12-08 09:38] VITALS: BP 107/77
[2019-12-08] MEDS: IBUPROFEN 400 MG TABLET PO PRN (10:02)
[2019-12-08 11:18] LABS: GLUCOMETER DEV NAME(LOC) BV2S.; GLUCOSE,POINT OF CARE 181 MG/DL (70-110)
[2019-12-08] MEDS ORDERED: QUET100T PO (12:30)
[2019-12-08] MEDS ORDERED: INSLAN SQ ×2 (12:30)
[2019-12-08] MEDS ORDERED: SERT50TA12 PO (12:30)
== END 2019-12-08 14:05 | disposition home or self-care (01) | DRG 885 ==
LOC: B3A 12-02 01:30 → B2S 12-06 13:47
DX: F25.1 Schizoaffective disorder, depressive type (principal); R45.851 Suicidal ideations; F10.10 Alcohol abuse, uncomplicated; E87.6 Hypokalemia; I10 Essential (primary) hypertension; F15.90 Other stimulant use, unspecified, uncomplicated; F41.9 Anxiety disorder, unspecified; E78.5 Hyperlipidemia, unspecified; Z59.0 Homelessness; Z81.8 Family history of other mental and behavioral disorders; Z91.14 Patient's other noncompliance with medication regimen; Z91.5 Personal history of self-harm
CPT/HCPCS: 83036; 84132; 84436; 90732; J1815

== ENCOUNTER 2020-03-22 16:50 | Inpatient (IN) | payer MEDICAID ==
[~2020-03-22] VITALS: Ht 175.3 cm; Wt 77.2 kg
[~2020-03-22 16:50] MED LIST changes: -BUPR450T3 PO; -BUSP10TA23 PO; -FOLI-130 PO; -MULT-1239 PO; -NALT50TA6 PO; +QUET100T PO; -QUET25TA PO; -SERT100T12 PO; +SERT50TA12 PO; -THIA100T92 PO
[2020-03-23 03:00] VITALS: BP 127/82
[2020-03-23] MEDS ORDERED: -PHARMACY VACCINE NOTE- MISC ONE (03:15)
[2020-03-23] MEDS ORDERED: INFLUENZA VIRUS VACCINE QVS 2020-21 (6MO+)/PF 60 MCG/0.5 ML SYRINGE IM ONE (03:15)
[2020-03-23] MEDS ORDERED: GLUCAGON,HUMAN RECOMBINANT 1 MG VIAL IM PRN (04:45)
[2020-03-23] MEDS ORDERED: INSULIN LISPRO 100 UNITS/ML SQ ONE (04:45)
[2020-03-23 04:46] LABS: GLUCOMETER DEV NAME(LOC) BV3N.; GLUCOSE,POINT OF CARE 511 MG/DL (70-110)
[2020-03-23 06:26] LABS: GLUCOMETER DEV NAME(LOC) BV3N.; GLUCOSE,POINT OF CARE 272 MG/DL (70-110)
[2020-03-23] MEDS: INSULIN LISPRO 100 UNITS/ML SQ PRN ×4 (06:44→21:03)
[2020-03-23 08:19] VITALS: BP 111/60
[2020-03-23] MEDS ORDERED: ALBUTEROL SULFATE HFA 90 MCG/PUFF 8 GM INHALER IH PRN (09:00)
[2020-03-23] MEDS ORDERED: NICOTINE 14 MG/24 HOUR PATCH TD PRN (09:00)
[2020-03-23] MEDS ORDERED: IBUPROFEN 400 MG TABLET PO PRN (09:00)
[2020-03-23] MEDS ORDERED: GuaiFENesin/D-METHORPHAN [SUGAR-FREE] 200-20MG/10 ML SYRUP UDCUP PO PRN (09:00)
[2020-03-23] MEDS ORDERED: MAG HYDROX/AL HYDROX/SIMETH ES 30 ML SUSPENSION UDCUP PO PRN (09:00)
[2020-03-23] MEDS ORDERED: PETROLATUM,WHITE 28 GM JELLY TP PRN (09:00)
[2020-03-23] MEDS ORDERED: ONDANSETRON HCL 4 MG TABLET PO PRN (09:00)
[2020-03-23] MEDS ORDERED: DOCUSATE SODIUM 100 MG CAPSULE PO PRN (09:00)
[2020-03-23] MEDS ORDERED: CloNIDine HCL 0.1 MG TABLET PO PRN (09:00)
[2020-03-23] MEDS ORDERED: LOPERAMIDE HCL 2 MG CAPSULE PO PRN (09:00)
[2020-03-23] MEDS ORDERED: MAGNESIUM HYDROXIDE SUSPENSION 30 ML UDCUP PO PRN (09:00)
[2020-03-23] MEDS ORDERED: ACETAMINOPHEN 325 MG TABLET PO PRN (09:00)
[2020-03-23] MEDS: HALOPERIDOL 5 MG TABLET PO PRN (09:30)
[2020-03-23] MEDS: LORazepam 2 MG TABLET PO PRN ×2 (09:30→17:55)
[2020-03-23] MEDS: BusPIRone HCL 5 MG TABLET PO SCH ×3 (11:02→20:40)
[2020-03-23] MEDS: FLUoxetine HCL 20 MG CAPSULE PO SCH (11:02)
[2020-03-23 12:14] LABS: GLUCOMETER DEV NAME(LOC) BV3N.; GLUCOSE,POINT OF CARE 226 MG/DL (70-110)
[2020-03-23 16:00] VITALS: BP 119/77
[2020-03-23 17:11] LABS: GLUCOMETER DEV NAME(LOC) BV3N.; GLUCOSE,POINT OF CARE 348 MG/DL (70-110)
[2020-03-23] MEDS: ZOLPIDEM TARTRATE 10 MG TABLET PO PRN (20:40)
[2020-03-23] MEDS: QUEtiapine FUMARATE 100 MG TABLET PO SCH (20:40)
[2020-03-23 21:04] LABS: GLUCOMETER DEV NAME(LOC) BV3N.; GLUCOSE,POINT OF CARE 262 MG/DL (70-110)
[2020-03-23] MEDS: INSULIN GLARGINE,HUM.REC.ANLOG 100 UNITS/ML SQ SCH (21:04)
[2020-03-23 21:05] LABS: GLUCOMETER DEV NAME(LOC) BV3N.; GLUCOSE,POINT OF CARE 84 MG/DL (70-110)
[2020-03-24 04:15] VITALS: BP 123/78
[2020-03-24 06:04] LABS: GLUCOMETER DEV NAME(LOC) BV3N.; GLUCOSE,POINT OF CARE 343 MG/DL (70-110)
[2020-03-24] MEDS: INSULIN LISPRO 100 UNITS/ML SQ PRN ×3 (06:38→20:46)
[2020-03-24 08:16] VITALS: BP 117/80
[2020-03-24] MEDS: BusPIRone HCL 5 MG TABLET PO SCH ×3 (08:32→20:37)
[2020-03-24] MEDS: FLUoxetine HCL 20 MG CAPSULE PO SCH (08:32)
[2020-03-24] MEDS: INSULIN GLARGINE,HUM.REC.ANLOG 100 UNITS/ML SQ SCH ×2 (08:58→20:47)
[2020-03-24 12:14] LABS: GLUCOMETER DEV NAME(LOC) BV3N.; GLUCOSE,POINT OF CARE 353 MG/DL (70-110)
[2020-03-24] MEDS: LORazepam 2 MG TABLET PO PRN (14:29)
[2020-03-24 16:00] VITALS: BP 107/61
[2020-03-24 17:42] LABS: GLUCOMETER DEV NAME(LOC) BV3N.; GLUCOSE,POINT OF CARE 78 MG/DL (70-110)
[2020-03-24] MEDS: QUEtiapine FUMARATE 100 MG TABLET PO SCH (20:37)
[2020-03-24 20:52] LABS: GLUCOMETER DEV NAME(LOC) BV3N.; GLUCOSE,POINT OF CARE 237 MG/DL (70-110)
[2020-03-25 00:47] VITALS: BP 114/65
[2020-03-25 06:40] LABS: GLUCOMETER DEV NAME(LOC) BV3N.; GLUCOSE,POINT OF CARE 151 MG/DL (70-110)
[2020-03-25] MEDS: INSULIN LISPRO 100 UNITS/ML SQ PRN ×3 (07:03→16:56)
[2020-03-25 08:07] VITALS: BP 126/76
[2020-03-25] MEDS: FLUoxetine HCL 20 MG CAPSULE PO SCH (08:51)
[2020-03-25] MEDS: BusPIRone HCL 5 MG TABLET PO SCH ×3 (08:51→21:10)
[2020-03-25] MEDS: INSULIN GLARGINE,HUM.REC.ANLOG 100 UNITS/ML SQ SCH ×2 (08:56→21:11)
[2020-03-25 09:06] LABS: GLUCOMETER DEV NAME(LOC) BV3N.; GLUCOSE,POINT OF CARE 287 MG/DL (70-110)
[2020-03-25] MEDS: HALOPERIDOL 5 MG TABLET PO PRN (10:02)
[2020-03-25] MEDS: LORazepam 2 MG TABLET PO PRN (10:02)
[2020-03-25 11:14] LABS: GLUCOMETER DEV NAME(LOC) BV3N.; GLUCOSE,POINT OF CARE 233 MG/DL (70-110)
[2020-03-25 16:28] VITALS: BP 109/59
[2020-03-25 17:05] LABS: GLUCOMETER DEV NAME(LOC) BV3N.; GLUCOSE,POINT OF CARE 197 MG/DL (70-110)
[2020-03-25] MEDS: QUEtiapine FUMARATE 100 MG TABLET PO SCH (21:10)
[2020-03-25] MEDS: ZOLPIDEM TARTRATE 10 MG TABLET PO PRN (21:10)
[2020-03-25 21:32] LABS: GLUCOMETER DEV NAME(LOC) BV3N.; GLUCOSE,POINT OF CARE 141 MG/DL (70-110)
[2020-03-26 02:17] VITALS: BP 108/63
[2020-03-26 06:10] LABS: GLUCOMETER DEV NAME(LOC) BV3N.; GLUCOSE,POINT OF CARE 98 MG/DL (70-110)
[2020-03-26 07:42] LABS: GLUCOMETER DEV NAME(LOC) BV3N.; GLUCOSE,POINT OF CARE 63 MG/DL (70-110)
[2020-03-26 08:15] VITALS: BP 107/61
[2020-03-26] MEDS: BusPIRone HCL 5 MG TABLET PO SCH ×3 (08:24→20:36)
[2020-03-26] MEDS: FLUoxetine HCL 20 MG CAPSULE PO SCH (08:24)
[2020-03-26] MEDS: INSULIN GLARGINE,HUM.REC.ANLOG 100 UNITS/ML SQ SCH ×2 (08:45→20:47)
[2020-03-26 08:53] LABS: GLUCOMETER DEV NAME(LOC) BV3N.; GLUCOSE,POINT OF CARE 234 MG/DL (70-110)
[2020-03-26] MEDS: LORazepam 2 MG TABLET PO PRN ×2 (10:22→16:02)
[2020-03-26] MEDS: HALOPERIDOL 5 MG TABLET PO PRN ×2 (10:22→16:02)
[2020-03-26 11:14] LABS: GLUCOMETER DEV NAME(LOC) BV3N.; GLUCOSE,POINT OF CARE 248 MG/DL (70-110)
[2020-03-26] MEDS: INSULIN LISPRO 100 UNITS/ML SQ PRN ×3 (11:14→20:47)
[2020-03-26 16:09] VITALS: BP 121/71
[2020-03-26 16:40] LABS: GLUCOMETER DEV NAME(LOC) BV3N.; GLUCOSE,POINT OF CARE 327 MG/DL (70-110)
[2020-03-26] MEDS: QUEtiapine FUMARATE 100 MG TABLET PO SCH (20:25)
[2020-03-26 20:51] LABS: GLUCOMETER DEV NAME(LOC) BV3N.; GLUCOSE,POINT OF CARE 161 MG/DL (70-110)
[2020-03-27 05:50] VITALS: BP 116/71
[2020-03-27 06:08] LABS: GLUCOMETER DEV NAME(LOC) BV3N.; GLUCOSE,POINT OF CARE 92 MG/DL (70-110)
[2020-03-27] MEDS: FLUoxetine HCL 20 MG CAPSULE PO SCH (09:10)
[2020-03-27] MEDS: BusPIRone HCL 5 MG TABLET PO SCH ×3 (09:10→20:48)
[2020-03-27] MEDS: INSULIN GLARGINE,HUM.REC.ANLOG 100 UNITS/ML SQ SCH ×2 (09:14→20:58)
[2020-03-27 09:43] LABS: GLUCOMETER DEV NAME(LOC) BV3N.; GLUCOSE,POINT OF CARE 234 MG/DL (70-110)
[2020-03-27] MEDS: LORazepam 2 MG TABLET PO PRN ×2 (10:13→16:17)
[2020-03-27 12:14] LABS: GLUCOMETER DEV NAME(LOC) BV3N.; GLUCOSE,POINT OF CARE 238 MG/DL (70-110)
[2020-03-27] MEDS: INSULIN LISPRO 100 UNITS/ML SQ PRN ×3 (12:31→20:58)
[2020-03-27 16:09] VITALS: BP 101/54
[2020-03-27 16:41] LABS: GLUCOMETER DEV NAME(LOC) BV3N.; GLUCOSE,POINT OF CARE 133 MG/DL (70-110)
[2020-03-27] MEDS: QUEtiapine FUMARATE 100 MG TABLET PO SCH (20:48)
[2020-03-27] MEDS: ZOLPIDEM TARTRATE 10 MG TABLET PO PRN (20:48)
[2020-03-28 04:27] VITALS: BP 110/60
[2020-03-28] MEDS: INSULIN LISPRO 100 UNITS/ML SQ PRN (06:53)
[2020-03-28] MEDS ORDERED: GLUCAGON,HUMAN RECOMBINANT 1 MG VIAL IM PRN (07:30)
[2020-03-28] MEDS ORDERED: INSULIN LISPRO 100 UNITS/ML SQ PRN (07:30)
[2020-03-28 07:44] LABS: BASOPHILS % (AUTO) 1.7 % (0.0-2.0); EOSINOPHILS % (AUTO) 2.6 % (1.0-6.0); HEMATOCRIT 42.3 % (41-53); HEMOGLOBIN 14.1 g/dL (13.5-17.5); LYMPHOCYTES % (AUTO) 39.2 % (22.0-44.0); MEAN CORPUSCULAR HGB CONC 33.3 G/dL (31.0-37.0); MEAN CORPUSCULAR VOLUME 84 fL (80-100); MONOCYTES # (AUTO) 0.5 K/uL (0.1-1.0); MONOCYTES % (AUTO) 9.7 % (2.0-9.0); NEUTROPHILS # (AUTO) 2.3 K/uL (1.8-7.7); NEUTROPHILS % (AUTO) 46.8 % (40.0-70.0); PLATELET COUNT (AUTO) 206 K/uL (150-450); RED BLOOD CELL COUNT(AUTO) 5.02 MIL/uL (4.50-5.90); RED CELL DISTRIBUTION WIDTH 18.9 % (11.5-14.5)
[2020-03-28 08:03] LABS: HEMOGLOBIN A1C 10.7 % (3.8-5.6)
[2020-03-28 08:09] LABS: ALANINE AMINOTRANSFERASE 35 U/L (12-78); ALBUMIN 3.2 g/dL (3.4-5.0); ALKALINE PHOSPHATASE 84 U/L (46-116); ANION GAP 4 mmol/L (8-16); ASPARTATE AMINOTRANSFERASE 20 U/L (15-37); BILIRUBIN,TOTAL 0.3 mg/dL (0.1-1.0); CARBON DIOXIDE 33 mmol/L (22-29); CHLORIDE 102 mmol/L (98-107); CHOLESTEROL 232 mg/dL (131-200); CREATININE 0.93 mg/dL (0.60-1.30); FREE T4 (FREE THYROXINE) 0.88 ng/dL (0.76-1.46); GLOMERULAR FILTR. RATE CALC > 60 mL/min (>60); GLUCOSE,RANDOM 107 mg/dL (70-110); HDL CHOLESTEROL 58 mg/dL (40-60); LDL CHOL (CALC.) 160 mg/dL (0-130); POTASSIUM 4.2 mmol/L (3.5-5.1); SODIUM SERUM 139 mmol/L (136-145); THYROID STIMULATING HORMONE 1.73 uIU/mL (0.36-3.74); TOTAL PROTEIN, SERUM 6.6 g/dL (6.4-8.2); TRIGLYCERIDES 68 mg/dL (15-150); UREA NITROGEN, BLOOD 16 mg/dL (7-18)
[2020-03-28 08:13] LABS: AMPHET/METH SCREEN,URINE NEGATIVE (NEGATIVE); BARBITURATE SCREEN, URINE NEGATIVE (NEGATIVE); BENZODIAZEPINES SCREEN,URINE NEGATIVE (NEGATIVE); CANNABINOID SCREEN,URINE NEGATIVE (NEGATIVE); COCAINE SCREEN,URINE NEGATIVE (NEGATIVE); METHADONE SCREEN, URINE NEGATIVE (NEGATIVE); OPIATE SCREEN,URINE NEGATIVE (NEGATIVE)
[2020-03-28 08:24] VITALS: BP 109/70
[2020-03-28 08:25] LABS: GLUCOMETER DEV NAME(LOC) BV3N.; GLUCOSE,POINT OF CARE 157 MG/DL (70-110)
[2020-03-28 08:26] LABS: GLUCOMETER DEV NAME(LOC) BV3N.; GLUCOSE,POINT OF CARE 129 MG/DL (70-110)
[2020-03-28] MEDS: BusPIRone HCL 5 MG TABLET PO SCH ×3 (08:29→20:28)
[2020-03-28] MEDS: FLUoxetine HCL 20 MG CAPSULE PO SCH (08:29)
[2020-03-28] MEDS: LORazepam 2 MG TABLET PO PRN ×4 (08:30→21:22)
[2020-03-28 08:33] LABS: APPEARANCE,URINE CLEAR (CLEAR); BILIRUBIN,URINE NEGATIVE (NEGATIVE); GLUCOSE, URINE (UA) >=1000 mg/dL (NEGATIVE); KETONES,URINE NEGATIVE (NEGATIVE); LEUKOCYTE ESTERASE ,URINE NEGATIVE (NEGATIVE); NITRATE,URINE NEGATIVE (NEGATIVE); OCCULT BLOOD,URINE NEGATIVE (NEGATIVE); PROTEIN,URINE NEGATIVE (NEGATIVE)
[2020-03-28 08:39] LABS: PHENCYCLIDINE SCREEN,URINE NEGATIVE (NEGATIVE)
[2020-03-28 09:02] LABS: BACTERIA,URINE None Seen /HPF (None Seen); RBC,URINE None Seen /HPF (0-2); WBC,URINE None Seen /HPF (0-5)
[2020-03-28] MEDS: INSULIN GLARGINE,HUM.REC.ANLOG 100 UNITS/ML SQ SCH ×2 (09:04→21:09)
[2020-03-28] MEDS: HALOPERIDOL 5 MG TABLET PO PRN (10:27)
[2020-03-28 11:13] LABS: GLUCOMETER DEV NAME(LOC) BV3N.; GLUCOSE,POINT OF CARE 220 MG/DL (70-110)
[2020-03-28 16:14] VITALS: BP 121/81
[2020-03-28 16:56] LABS: GLUCOMETER DEV NAME(LOC) BV3N.; GLUCOSE,POINT OF CARE 370 MG/DL (70-110)
[2020-03-28] MEDS: ZOLPIDEM TARTRATE 10 MG TABLET PO PRN (20:28)
[2020-03-28] MEDS: QUEtiapine FUMARATE 100 MG TABLET PO SCH (20:28)
[2020-03-28 21:00] LABS: GLUCOMETER DEV NAME(LOC) BV3N.; GLUCOSE,POINT OF CARE 121 MG/DL (70-110)
[2020-03-29 06:10] VITALS: BP 128/86
[2020-03-29 06:10] LABS: GLUCOMETER DEV NAME(LOC) BV3N.; GLUCOSE,POINT OF CARE 192 MG/DL (70-110)
[2020-03-29] MEDS: LORazepam 2 MG TABLET PO PRN ×4 (06:49→21:34)
[2020-03-29 08:07] VITALS: BP 109/69
[2020-03-29] MEDS: BusPIRone HCL 5 MG TABLET PO SCH ×3 (08:34→20:46)
[2020-03-29] MEDS: FLUoxetine HCL 20 MG CAPSULE PO SCH (08:34)
[2020-03-29] MEDS: INSULIN GLARGINE,HUM.REC.ANLOG 100 UNITS/ML SQ SCH ×2 (08:37→20:41)
[2020-03-29] MEDS: INSULIN LISPRO 100 UNITS/ML SQ PRN (11:01)
[2020-03-29 11:09] LABS: GLUCOMETER DEV NAME(LOC) BV3N.; GLUCOSE,POINT OF CARE 340 MG/DL (70-110)
[2020-03-29 17:01] LABS: GLUCOMETER DEV NAME(LOC) BV3N.; GLUCOSE,POINT OF CARE 100 MG/DL (70-110)
[2020-03-29 18:28] VITALS: BP 135/86
[2020-03-29] MEDS: ZOLPIDEM TARTRATE 10 MG TABLET PO PRN (20:37)
[2020-03-29] MEDS: QUEtiapine FUMARATE 100 MG TABLET PO SCH (20:47)
[2020-03-29 21:24] LABS: GLUCOMETER DEV NAME(LOC) BV3N.; GLUCOSE,POINT OF CARE 274 MG/DL (70-110)
[2020-03-29] MEDS: HALOPERIDOL 5 MG TABLET PO PRN (21:37)
[2020-03-30 00:39] VITALS: BP 133/78
[2020-03-30 01:24] LABS: GLUCOMETER DEV NAME(LOC) BV3N.; GLUCOSE,POINT OF CARE 130 MG/DL (70-110)
[2020-03-30 07:14] LABS: GLUCOMETER DEV NAME(LOC) BV3N.; GLUCOSE,POINT OF CARE 222 MG/DL (70-110)
[2020-03-30] MEDS: BusPIRone HCL 5 MG TABLET PO SCH (08:37)
[2020-03-30] MEDS: FLUoxetine HCL 20 MG CAPSULE PO SCH (08:37)
[2020-03-30] MEDS: INSULIN GLARGINE,HUM.REC.ANLOG 100 UNITS/ML SQ SCH (08:48)
[2020-03-30 09:01] LABS: GLUCOMETER DEV NAME(LOC) BV3N.; GLUCOSE,POINT OF CARE 439 MG/DL (70-110)
[2020-03-30] MEDS: INSULIN LISPRO 100 UNITS/ML SQ PRN (09:30)
[2020-03-30] MEDS ORDERED: BUSP5TAB20 PO (10:22)
[2020-03-30] MEDS ORDERED: FLUO-191 PO (10:22)
== END 2020-03-30 12:00 | disposition home or self-care (01) | DRG 750 ==
LOC: B3A 03-23 02:33
DX: F25.1 Schizoaffective disorder, depressive type (principal); F15.90 Other stimulant use, unspecified, uncomplicated; E11.9 Type 2 diabetes mellitus without complications; Z79.4 Long term (current) use of insulin; E78.5 Hyperlipidemia, unspecified; I10 Essential (primary) hypertension; Z59.0 Homelessness; F12.90 Cannabis use, unspecified, uncomplicated; R45.851 Suicidal ideations; K21.9 Gastro-esophageal reflux disease without esophagitis
CPT/HCPCS: 80307; 83036; 84436; 84439; 84443; 90686; J1815

== ENCOUNTER 2020-03-22 19:15 | Emergency (ER) | payer MEDICAID, OTHER ==
[~2020-03-22] VITALS: Ht 170.2 cm; Wt 77.3 kg
[2020-03-22 19:58] LABS: BASOPHILS % (AUTO) 2.8 % (0.0-2.0); HEMOGLOBIN 13.2 g/dL (13.5-17.5); LYMPHOCYTES # (AUTO) 1.9 K/uL (1.0-4.8); LYMPHOCYTES % (AUTO) 29.5 % (22.0-44.0); MEAN CORPUSCULAR HEMOGLOBIN 27.8 pg (26.0-34.0); MEAN CORPUSCULAR VOLUME 84 fL (80-100); MONOCYTES # (AUTO) 0.6 K/uL (0.1-1.0); MONOCYTES % (AUTO) 8.7 % (2.0-9.0); NEUTROPHILS # (AUTO) 3.6 K/uL (1.8-7.7); PLATELET COUNT (AUTO) 288 K/uL (150-450); RED BLOOD CELL COUNT(AUTO) 4.75 MIL/uL (4.50-5.90); RED CELL DISTRIBUTION WIDTH 18.7 % (11.5-14.5)
[2020-03-22 20:28] LABS: ANION GAP 6 mmol/L (8-16); CALCIUM, TOTAL 9.2 mg/dL (8.8-10.5); CARBON DIOXIDE 29 mmol/L (22-29); CHLORIDE 106 mmol/L (98-107); GLOMERULAR FILTR. RATE CALC > 60 mL/min (>60); GLUCOSE,RANDOM 157 mg/dL (70-110); POTASSIUM 3.9 mmol/L (3.5-5.1); SODIUM SERUM 141 mmol/L (136-145); UREA NITROGEN, BLOOD 10 mg/dL (7-18)
[2020-03-22 20:32] LABS: ALANINE AMINOTRANSFERASE 38 U/L (12-78); ALBUMIN 3.2 g/dL (3.4-5.0); ALKALINE PHOSPHATASE 85 U/L (46-116); ASPARTATE AMINOTRANSFERASE 30 U/L (15-37); BILIRUBIN,TOTAL 0.3 mg/dL (0.1-1.0); TOTAL PROTEIN, SERUM 6.2 g/dL (6.4-8.2)
[2020-03-22 21:10] LABS: COVID AG,FIA SOURCE NASOPHARYNGEAL
[2020-03-22 23:52] VITALS: BP 130/82
== END 2020-03-23 01:02 | disposition other institution (70) ==
LOC: EMS 19:17
DX: F25.9 Schizoaffective disorder, unspecified (principal); F41.9 Anxiety disorder, unspecified; F32.9 Major depressive disorder, single episode, unspecified; E11.9 Type 2 diabetes mellitus without complications; E78.00 Pure hypercholesterolemia, unspecified; F12.90 Cannabis use, unspecified, uncomplicated; F15.90 Other stimulant use, unspecified, uncomplicated; F14.90 Cocaine use, unspecified, uncomplicated; F17.210 Nicotine dependence, cigarettes, uncomplicated; Z79.4 Long term (current) use of insulin; Z79.899 Other long term (current) drug therapy; Z20.828 Contact with and (suspected) exposure to other viral communicable diseases
CPT/HCPCS: 36415; 80053; 82962; 85025; 87426; 99283; G0480

== ENCOUNTER 2020-06-13 17:53 | Inpatient (IN) | payer MEDICAID ==
[~2020-06-13] VITALS: Ht 177.8 cm; Wt 75.2 kg
[~2020-06-13 17:53] MED LIST changes: +BUSP5TAB20 PO; +FLUO-191 PO; -SERT50TA12 PO
[2020-06-13 21:51] LABS: COVID AG,FIA SOURCE NASOPHARYNGEAL
[2020-06-14] MEDS: LORazepam 2 MG TABLET PO PRN ×2 (01:34→20:47)
[2020-06-14] MEDS: BusPIRone HCL 5 MG TABLET PO SCH ×4 (01:34→20:47)
[2020-06-14] MEDS: QUEtiapine FUMARATE 100 MG TABLET PO SCH ×2 (01:34→20:47)
[2020-06-14 01:35] VITALS: BP 132/95
[2020-06-14] MEDS ORDERED: INFLUENZA VIRUS VACCINE QVS 2020-21 (6MO+)/PF 60 MCG/0.5 ML SYRINGE IM ONE (02:00)
[2020-06-14] MEDS ORDERED: -PHARMACY VACCINE NOTE- MISC ONE (02:00)
[2020-06-14] MEDS ORDERED: GLUCAGON,HUMAN RECOMBINANT 1 MG VIAL IM PRN (05:45)
[2020-06-14 06:18] LABS: GLUCOMETER DEV NAME(LOC) BV3N.; GLUCOSE,POINT OF CARE 175 MG/DL (70-110)
[2020-06-14] MEDS: INSULIN LISPRO 100 UNITS/ML SQ PRN ×3 (06:29→21:14)
[2020-06-14] MEDS ORDERED: ACETAMINOPHEN 325 MG TABLET PO PRN (07:45)
[2020-06-14] MEDS ORDERED: ONDANSETRON HCL 4 MG TABLET PO PRN (07:45)
[2020-06-14] MEDS ORDERED: PETROLATUM,WHITE 28 GM JELLY TP PRN (07:45)
[2020-06-14] MEDS ORDERED: IBUPROFEN 400 MG TABLET PO PRN (07:45)
[2020-06-14] MEDS ORDERED: GuaiFENesin/D-METHORPHAN [SUGAR-FREE] 200-20MG/10 ML SYRUP UDCUP PO PRN (07:45)
[2020-06-14] MEDS ORDERED: NICOTINE 14 MG/24 HOUR PATCH TD PRN (07:45)
[2020-06-14] MEDS ORDERED: DOCUSATE SODIUM 100 MG CAPSULE PO PRN (07:45)
[2020-06-14] MEDS ORDERED: CloNIDine HCL 0.1 MG TABLET PO PRN (07:45)
[2020-06-14] MEDS ORDERED: ALBUTEROL SULFATE HFA 90 MCG/PUFF 8 GM INHALER IH PRN (07:45)
[2020-06-14] MEDS ORDERED: LOPERAMIDE HCL 2 MG CAPSULE PO PRN (07:45)
[2020-06-14] MEDS ORDERED: MAG HYDROX/AL HYDROX/SIMETH ES 30 ML SUSPENSION UDCUP PO PRN (07:45)
[2020-06-14] MEDS ORDERED: MAGNESIUM HYDROXIDE SUSPENSION 30 ML UDCUP PO PRN (07:45)
[2020-06-14] MEDS: FLUoxetine HCL 20 MG CAPSULE PO SCH (08:08)
[2020-06-14 08:18] LABS: BASOPHILS % (AUTO) 3.1 % (0.0-2.0); EOSINOPHILS % (AUTO) 4.7 % (1.0-6.0); HEMATOCRIT 39.3 % (41-53); HEMOGLOBIN 13.2 g/dL (13.5-17.5); LYMPHOCYTES # (AUTO) 2.2 K/uL (1.0-4.8); LYMPHOCYTES % (AUTO) 47.9 % (22.0-44.0); MEAN CORPUSCULAR HEMOGLOBIN 29.6 pg (26.0-34.0); MEAN CORPUSCULAR HGB CONC 33.7 G/dL (31.0-37.0); MEAN CORPUSCULAR VOLUME 88 fL (80-100); MONOCYTES # (AUTO) 0.3 K/uL (0.1-1.0); MONOCYTES % (AUTO) 7.6 % (2.0-9.0); NEUTROPHILS # (AUTO) 1.7 K/uL (1.8-7.7); NEUTROPHILS % (AUTO) 36.7 % (40.0-70.0); PLATELET COUNT (AUTO) 315 K/uL (150-450); RED BLOOD CELL COUNT(AUTO) 4.48 MIL/uL (4.50-5.90); RED CELL DISTRIBUTION WIDTH 18.3 % (11.5-14.5)
[2020-06-14 08:33] LABS: HEMOGLOBIN A1C 11.4 % (3.8-5.6)
[2020-06-14 08:58] LABS: ALANINE AMINOTRANSFERASE 78 U/L (12-78); ALBUMIN 2.9 g/dL (3.4-5.0); ALKALINE PHOSPHATASE 139 U/L (46-116); ANION GAP 8 mmol/L (8-16); ASPARTATE AMINOTRANSFERASE 37 U/L (15-37); BILIRUBIN,TOTAL 0.5 mg/dL (0.1-1.0); CALCIUM, TOTAL 8.7 mg/dL (8.8-10.5); CARBON DIOXIDE 27 mmol/L (22-29); CHLORIDE 106 mmol/L (98-107); CHOL/HDL RATIO 3.6 (4.2-7.3); CHOLESTEROL 178 mg/dL (131-200); CREATININE 0.81 mg/dL (0.60-1.30); FREE T4 (FREE THYROXINE) 1.05 ng/dL (0.76-1.46); GLOMERULAR FILTR. RATE CALC > 60 mL/min (>60); GLUCOSE,RANDOM 132 mg/dL (70-110); HDL CHOLESTEROL 50 mg/dL (40-60); LDL CHOL (CALC.) 98 mg/dL (0-130); POTASSIUM 3.4 mmol/L (3.5-5.1); SODIUM SERUM 141 mmol/L (136-145); THYROID STIMULATING HORMONE 0.87 uIU/mL (0.36-3.74); TOTAL PROTEIN, SERUM 6.1 g/dL (6.4-8.2); TRIGLYCERIDES 149 mg/dL (15-150); UREA NITROGEN, BLOOD 11 mg/dL (7-18)
[2020-06-14 09:36] VITALS: BP 131/90
[2020-06-14 09:49] LABS: GLUCOMETER DEV NAME(LOC) BV3N.; GLUCOSE,POINT OF CARE 48 MG/DL (70-110)
[2020-06-14 10:13] LABS: GLUCOMETER DEV NAME(LOC) BV3N.; GLUCOSE,POINT OF CARE 133 MG/DL (70-110)
[2020-06-14 11:18] LABS: GLUCOMETER DEV NAME(LOC) BV3N.; GLUCOSE,POINT OF CARE 122 MG/DL (70-110)
[2020-06-14 16:16] VITALS: BP 131/86
[2020-06-14 16:48] LABS: GLUCOMETER DEV NAME(LOC) BV3N.; GLUCOSE,POINT OF CARE 284 MG/DL (70-110)
[2020-06-14] MEDS ORDERED: INSULIN GLARGINE,HUM.REC.ANLOG 100 UNITS/ML SQ SCH (21:00)
[2020-06-14] MEDS ORDERED: POTASSIUM CHLORIDE 20 MEQ ER TABLET PO ONE (21:00)
[2020-06-14 21:04] LABS: GLUCOMETER DEV NAME(LOC) BV3N.; GLUCOSE,POINT OF CARE 237 MG/DL (70-110)
[2020-06-15 05:58] LABS: GLUCOMETER DEV NAME(LOC) BV3N.; GLUCOSE,POINT OF CARE 351 MG/DL (70-110)
[2020-06-15] MEDS: INSULIN LISPRO 100 UNITS/ML SQ PRN ×3 (06:49→20:58)
[2020-06-15 07:17] VITALS: BP 127/79
[2020-06-15] MEDS: FLUoxetine HCL 20 MG CAPSULE PO SCH (09:26)
[2020-06-15] MEDS: BusPIRone HCL 5 MG TABLET PO SCH ×3 (09:26→20:39)
[2020-06-15 11:34] LABS: GLUCOMETER DEV NAME(LOC) BV3N.; GLUCOSE,POINT OF CARE 298 MG/DL (70-110)
[2020-06-15] MEDS ORDERED: INSULIN LISPRO 100 UNITS/ML SQ ONE (17:15)
[2020-06-15] MEDS: LORazepam 2 MG TABLET PO PRN (17:16)
[2020-06-15] MEDS: INSULIN GLARGINE,HUM.REC.ANLOG 100 UNITS/ML SQ SCH (17:17)
[2020-06-15 17:46] LABS: GLUCOMETER DEV NAME(LOC) BV3N.; GLUCOSE,POINT OF CARE 428 MG/DL (70-110)
[2020-06-15 17:54] VITALS: BP 120/76
[2020-06-15] MEDS: QUEtiapine FUMARATE 100 MG TABLET PO SCH (20:39)
[2020-06-15 21:26] LABS: GLUCOMETER DEV NAME(LOC) BV3N.; GLUCOSE,POINT OF CARE 182 MG/DL (70-110)
[2020-06-16 06:20] VITALS: BP 118/70
[2020-06-16 06:23] LABS: GLUCOMETER DEV NAME(LOC) BV3N.; GLUCOSE,POINT OF CARE 171 MG/DL (70-110)
[2020-06-16] MEDS: INSULIN LISPRO 100 UNITS/ML SQ PRN ×4 (06:59→21:18)
[2020-06-16] MEDS: FLUoxetine HCL 20 MG CAPSULE PO SCH (09:10)
[2020-06-16 09:17] LABS: GLUCOMETER DEV NAME(LOC) BV3N.; GLUCOSE,POINT OF CARE 324 MG/DL (70-110)
[2020-06-16] MEDS: INSULIN GLARGINE,HUM.REC.ANLOG 100 UNITS/ML SQ SCH ×2 (09:22→17:15)
[2020-06-16] MEDS: BusPIRone HCL 5 MG TABLET PO SCH ×3 (09:45→21:13)
[2020-06-16 12:08] LABS: GLUCOMETER DEV NAME(LOC) BV3N.; GLUCOSE,POINT OF CARE 283 MG/DL (70-110)
[2020-06-16] MEDS: LORazepam 2 MG TABLET PO PRN ×2 (12:11→16:52)
[2020-06-16 16:42] VITALS: BP 119/70
[2020-06-16 17:47] LABS: GLUCOMETER DEV NAME(LOC) BV3N.; GLUCOSE,POINT OF CARE 198 MG/DL (70-110)
[2020-06-16] MEDS: ZOLPIDEM TARTRATE 10 MG TABLET PO PRN (21:13)
[2020-06-16] MEDS: QUEtiapine FUMARATE 100 MG TABLET PO SCH (21:13)
[2020-06-16 22:14] LABS: GLUCOMETER DEV NAME(LOC) BV3N.; GLUCOSE,POINT OF CARE 209 MG/DL (70-110)
[2020-06-17 06:19] LABS: GLUCOMETER DEV NAME(LOC) BV3N.; GLUCOSE,POINT OF CARE 94 MG/DL (70-110)
[2020-06-17] MEDS: LORazepam 2 MG TABLET PO PRN ×3 (09:15→16:33)
[2020-06-17] MEDS: BusPIRone HCL 5 MG TABLET PO SCH ×3 (09:55→21:11)
[2020-06-17] MEDS: QUEtiapine FUMARATE 25 MG TABLET PO SCH (09:55)
[2020-06-17] MEDS: FLUoxetine HCL 20 MG CAPSULE PO SCH (09:55)
[2020-06-17] MEDS: INSULIN GLARGINE,HUM.REC.ANLOG 100 UNITS/ML SQ SCH ×2 (10:04→16:53)
[2020-06-17 10:07] LABS: GLUCOMETER DEV NAME(LOC) BV3N.; GLUCOSE,POINT OF CARE 155 MG/DL (70-110)
[2020-06-17 11:20] LABS: GLUCOMETER DEV NAME(LOC) BV3N.; GLUCOSE,POINT OF CARE 344 MG/DL (70-110)
[2020-06-17] MEDS: INSULIN LISPRO 100 UNITS/ML SQ PRN ×3 (11:29→21:18)
[2020-06-17 13:25] VITALS: BP 111/75
[2020-06-17 16:25] VITALS: BP 114/77
[2020-06-17] MEDS: HALOPERIDOL 5 MG TABLET PO PRN (17:32)
[2020-06-17] MEDS: QUEtiapine FUMARATE 200 MG TABLET PO SCH (21:11)
[2020-06-17] MEDS: ZOLPIDEM TARTRATE 10 MG TABLET PO PRN (21:11)
[2020-06-17 21:43] LABS: GLUCOMETER DEV NAME(LOC) BV3N.; GLUCOSE,POINT OF CARE 270 MG/DL (70-110)
[2020-06-18 00:43] VITALS: BP 120/68
[2020-06-18 06:16] LABS: GLUCOMETER DEV NAME(LOC) BV3N.; GLUCOSE,POINT OF CARE 99 MG/DL (70-110)
[2020-06-18] MEDS: BusPIRone HCL 5 MG TABLET PO SCH ×3 (09:40→21:12)
[2020-06-18] MEDS: FLUoxetine HCL 20 MG CAPSULE PO SCH (09:40)
[2020-06-18] MEDS: QUEtiapine FUMARATE 25 MG TABLET PO SCH (09:41)
[2020-06-18] MEDS: INSULIN GLARGINE,HUM.REC.ANLOG 100 UNITS/ML SQ SCH ×2 (09:46→17:47)
[2020-06-18 11:00] LABS: GLUCOMETER DEV NAME(LOC) BV3N.; GLUCOSE,POINT OF CARE 184 MG/DL (70-110)
[2020-06-18] MEDS: LORazepam 2 MG TABLET PO PRN ×2 (12:31→17:24)
[2020-06-18] MEDS: INSULIN LISPRO 100 UNITS/ML SQ PRN ×3 (12:33→21:32)
[2020-06-18 12:56] VITALS: BP 114/75
[2020-06-18 16:36] VITALS: BP 101/69
[2020-06-18 19:16] LABS: GLUCOMETER DEV NAME(LOC) BV3N.; GLUCOSE,POINT OF CARE 306 MG/DL (70-110)
[2020-06-18] MEDS: QUEtiapine FUMARATE 200 MG TABLET PO SCH (21:12)
[2020-06-18] MEDS: ZOLPIDEM TARTRATE 10 MG TABLET PO PRN (21:24)
[2020-06-18 23:39] LABS: GLUCOMETER DEV NAME(LOC) BV3N.; GLUCOSE,POINT OF CARE 178 MG/DL (70-110)
[2020-06-19 05:43] VITALS: BP 105/57
[2020-06-19] MEDS: INSULIN LISPRO 100 UNITS/ML SQ PRN ×4 (06:49→21:02)
[2020-06-19 06:51] LABS: GLUCOMETER DEV NAME(LOC) BV3N.; GLUCOSE,POINT OF CARE 169 MG/DL (70-110)
[2020-06-19 08:29] VITALS: BP 111/70
[2020-06-19] MEDS: INSULIN GLARGINE,HUM.REC.ANLOG 100 UNITS/ML SQ SCH ×2 (08:50→17:23)
[2020-06-19] MEDS: FLUoxetine HCL 20 MG CAPSULE PO SCH (08:51)
[2020-06-19] MEDS: QUEtiapine FUMARATE 25 MG TABLET PO SCH (08:51)
[2020-06-19] MEDS: BusPIRone HCL 5 MG TABLET PO SCH ×3 (08:52→20:48)
[2020-06-19] MEDS: LORazepam 2 MG TABLET PO PRN ×3 (08:52→20:48)
[2020-06-19] MEDS: HALOPERIDOL 5 MG TABLET PO PRN (10:18)
[2020-06-19 11:12] LABS: GLUCOMETER DEV NAME(LOC) BV3N.; GLUCOSE,POINT OF CARE 254 MG/DL (70-110)
[2020-06-19 16:19] VITALS: BP 102/62
[2020-06-19] MEDS: THIAMINE 100 MG TABLET PO SCH (16:54)
[2020-06-19 17:04] LABS: GLUCOMETER DEV NAME(LOC) BV3N.; GLUCOSE,POINT OF CARE 280 MG/DL (70-110)
[2020-06-19] MEDS: QUEtiapine FUMARATE 200 MG TABLET PO SCH (20:48)
[2020-06-19] MEDS: ZOLPIDEM TARTRATE 10 MG TABLET PO PRN (20:48)
[2020-06-19 21:08] LABS: GLUCOMETER DEV NAME(LOC) BV3N.; GLUCOSE,POINT OF CARE 188 MG/DL (70-110)
[2020-06-20 05:57] VITALS: BP 112/63
[2020-06-20 06:29] LABS: GLUCOMETER DEV NAME(LOC) BV3N.; GLUCOSE,POINT OF CARE 312 MG/DL (70-110)
[2020-06-20] MEDS: INSULIN LISPRO 100 UNITS/ML SQ PRN ×4 (06:49→20:54)
[2020-06-20 08:12] VITALS: BP 109/70
[2020-06-20] MEDS: OMEGA-3/DHA/EPA/FISH OIL 1,000 MG CAPSULE PO SCH (08:45)
[2020-06-20] MEDS: FLUoxetine HCL 20 MG CAPSULE PO SCH (08:45)
[2020-06-20] MEDS: MULTIVITAMINS, THERAPEUTIC TABLET PO SCH (08:46)
[2020-06-20] MEDS: THIAMINE 100 MG TABLET PO SCH ×2 (08:46→16:50)
[2020-06-20] MEDS: FOLIC ACID 1 MG TABLET PO SCH (08:46)
[2020-06-20] MEDS: QUEtiapine FUMARATE 25 MG TABLET PO SCH (08:46)
[2020-06-20] MEDS: BusPIRone HCL 5 MG TABLET PO SCH ×3 (08:46→20:51)
[2020-06-20] MEDS: LORazepam 2 MG TABLET PO PRN ×2 (08:47→16:50)
[2020-06-20] MEDS: HALOPERIDOL 5 MG TABLET PO PRN (08:53)
[2020-06-20] MEDS: INSULIN GLARGINE,HUM.REC.ANLOG 100 UNITS/ML SQ SCH ×2 (08:53→16:53)
[2020-06-20 11:15] LABS: GLUCOMETER DEV NAME(LOC) BV3N.; GLUCOSE,POINT OF CARE 262 MG/DL (70-110)
[2020-06-20 16:14] VITALS: BP 119/71
[2020-06-20 17:34] LABS: GLUCOMETER DEV NAME(LOC) BV3N.; GLUCOSE,POINT OF CARE 356 MG/DL (70-110)
[2020-06-20] MEDS: ZOLPIDEM TARTRATE 10 MG TABLET PO PRN (20:51)
[2020-06-20] MEDS: QUEtiapine FUMARATE 200 MG TABLET PO SCH (20:51)
[2020-06-20 21:03] LABS: GLUCOMETER DEV NAME(LOC) BV3N.; GLUCOSE,POINT OF CARE 301 MG/DL (70-110)
[2020-06-21 04:06] VITALS: BP 117/67
[2020-06-21 06:14] LABS: GLUCOMETER DEV NAME(LOC) BV3N.; GLUCOSE,POINT OF CARE 231 MG/DL (70-110)
[2020-06-21] MEDS: INSULIN LISPRO 100 UNITS/ML SQ PRN ×4 (06:58→21:09)
[2020-06-21 08:13] VITALS: BP 111/69
[2020-06-21] MEDS: MULTIVITAMINS, THERAPEUTIC TABLET PO SCH (09:20)
[2020-06-21] MEDS: FOLIC ACID 1 MG TABLET PO SCH (09:20)
[2020-06-21] MEDS: BusPIRone HCL 5 MG TABLET PO SCH ×3 (09:20→21:06)
[2020-06-21] MEDS: THIAMINE 100 MG TABLET PO SCH ×2 (09:20→16:43)
[2020-06-21] MEDS: OMEGA-3/DHA/EPA/FISH OIL 1,000 MG CAPSULE PO SCH (09:20)
[2020-06-21] MEDS: FLUoxetine HCL 20 MG CAPSULE PO SCH (09:20)
[2020-06-21] MEDS: QUEtiapine FUMARATE 25 MG TABLET PO SCH (09:20)
[2020-06-21] MEDS: LORazepam 2 MG TABLET PO PRN ×2 (09:21→16:43)
[2020-06-21] MEDS ORDERED: INSULIN LISPRO 100 UNITS/ML SQ ONE (09:30)
[2020-06-21] MEDS: INSULIN GLARGINE,HUM.REC.ANLOG 100 UNITS/ML SQ SCH ×2 (09:33→16:49)
[2020-06-21 09:37] LABS: GLUCOMETER DEV NAME(LOC) BV3N.; GLUCOSE,POINT OF CARE 411 MG/DL (70-110)
[2020-06-21 11:16] LABS: GLUCOMETER DEV NAME(LOC) BV3N.; GLUCOSE,POINT OF CARE 333 MG/DL (70-110)
[2020-06-21 16:02] VITALS: BP 124/71
[2020-06-21] MEDS: HALOPERIDOL 5 MG TABLET PO PRN (16:43)
[2020-06-21 17:06] LABS: GLUCOMETER DEV NAME(LOC) BV3N.; GLUCOSE,POINT OF CARE 316 MG/DL (70-110)
[2020-06-21] MEDS: ZOLPIDEM TARTRATE 10 MG TABLET PO PRN (21:06)
[2020-06-21] MEDS: QUEtiapine FUMARATE 200 MG TABLET PO SCH (21:06)
[2020-06-21 21:23] LABS: GLUCOMETER DEV NAME(LOC) BV3N.; GLUCOSE,POINT OF CARE 179 MG/DL (70-110)
[2020-06-22 06:20] LABS: GLUCOMETER DEV NAME(LOC) BV3N.; GLUCOSE,POINT OF CARE 327 MG/DL (70-110)
[2020-06-22 06:23] VITALS: BP 119/78
[2020-06-22] MEDS: INSULIN LISPRO 100 UNITS/ML SQ PRN ×3 (06:42→20:37)
[2020-06-22 08:20] VITALS: BP 107/66
[2020-06-22] MEDS: FLUoxetine HCL 20 MG CAPSULE PO SCH (09:21)
[2020-06-22] MEDS: QUEtiapine FUMARATE 25 MG TABLET PO SCH (09:21)
[2020-06-22] MEDS: FOLIC ACID 1 MG TABLET PO SCH (09:21)
[2020-06-22] MEDS: BusPIRone HCL 5 MG TABLET PO SCH ×3 (09:22→20:27)
[2020-06-22] MEDS: OMEGA-3/DHA/EPA/FISH OIL 1,000 MG CAPSULE PO SCH (09:22)
[2020-06-22] MEDS: THIAMINE 100 MG TABLET PO SCH ×2 (09:22→16:18)
[2020-06-22] MEDS: MULTIVITAMINS, THERAPEUTIC TABLET PO SCH (09:22)
[2020-06-22] MEDS: INSULIN GLARGINE,HUM.REC.ANLOG 100 UNITS/ML SQ SCH ×2 (09:35→17:01)
[2020-06-22] MEDS: LORazepam 2 MG TABLET PO PRN ×3 (09:36→22:01)
[2020-06-22] MEDS: HALOPERIDOL 5 MG TABLET PO PRN (12:45)
[2020-06-22 13:09] LABS: GLUCOMETER DEV NAME(LOC) BV3N.; GLUCOSE,POINT OF CARE 382 MG/DL (70-110)
[2020-06-22 16:03] VITALS: BP 102/68
[2020-06-22 16:30] LABS: GLUCOMETER DEV NAME(LOC) BV3N.; GLUCOSE,POINT OF CARE 430 MG/DL (70-110)
[2020-06-22] MEDS ORDERED: INSULIN LISPRO 100 UNITS/ML SQ ONE (17:00)
[2020-06-22] MEDS: QUEtiapine FUMARATE 200 MG TABLET PO SCH (20:27)
[2020-06-22] MEDS: ZOLPIDEM TARTRATE 10 MG TABLET PO PRN (20:28)
[2020-06-22 20:37] LABS: GLUCOMETER DEV NAME(LOC) BV3N.; GLUCOSE,POINT OF CARE 210 MG/DL (70-110)
[2020-06-23 06:13] LABS: GLUCOMETER DEV NAME(LOC) BV3N.; GLUCOSE,POINT OF CARE 306 MG/DL (70-110)
[2020-06-23 06:14] VITALS: BP 102/65
[2020-06-23] MEDS: INSULIN LISPRO 100 UNITS/ML SQ PRN ×4 (06:55→20:53)
[2020-06-23] MEDS ORDERED: INSULIN LISPRO 100 UNITS/ML SQ PRN (07:00)
[2020-06-23] MEDS ORDERED: GLUCAGON,HUMAN RECOMBINANT 1 MG VIAL IM PRN ×2 (07:00→07:15)
[2020-06-23 08:14] VITALS: BP 109/64
[2020-06-23] MEDS: MULTIVITAMINS, THERAPEUTIC TABLET PO SCH (09:11)
[2020-06-23] MEDS: FLUoxetine HCL 20 MG CAPSULE PO SCH (09:11)
[2020-06-23] MEDS: QUEtiapine FUMARATE 25 MG TABLET PO SCH (09:11)
[2020-06-23] MEDS: OMEGA-3/DHA/EPA/FISH OIL 1,000 MG CAPSULE PO SCH (09:11)
[2020-06-23] MEDS: THIAMINE 100 MG TABLET PO SCH ×2 (09:11→16:22)
[2020-06-23] MEDS: FOLIC ACID 1 MG TABLET PO SCH (09:12)
[2020-06-23] MEDS: BusPIRone HCL 5 MG TABLET PO SCH ×3 (09:12→20:45)
[2020-06-23] MEDS: INSULIN GLARGINE,HUM.REC.ANLOG 100 UNITS/ML SQ SCH ×2 (09:18→17:58)
[2020-06-23] MEDS: LORazepam 2 MG TABLET PO PRN ×2 (10:30→18:01)
[2020-06-23 12:41] LABS: GLUCOMETER DEV NAME(LOC) BV2S.; GLUCOSE,POINT OF CARE 366 MG/DL (70-110)
[2020-06-23 16:13] LABS: GLUCOMETER DEV NAME(LOC) BV2S.; GLUCOSE,POINT OF CARE 211 MG/DL (70-110)
[2020-06-23 17:02] VITALS: BP 126/76
[2020-06-23 20:17] LABS: GLUCOMETER DEV NAME(LOC) BV2S.; GLUCOSE,POINT OF CARE 333 MG/DL (70-110)
[2020-06-23] MEDS: QUEtiapine FUMARATE 200 MG TABLET PO SCH (20:45)
[2020-06-24 04:37] VITALS: BP 118/67
[2020-06-24] MEDS: INSULIN LISPRO 100 UNITS/ML SQ PRN ×4 (06:49→20:08)
[2020-06-24 06:51] LABS: GLUCOMETER DEV NAME(LOC) BV2S.; GLUCOSE,POINT OF CARE 169 MG/DL (70-110)
[2020-06-24 08:30] VITALS: BP 127/85
[2020-06-24] MEDS: FOLIC ACID 1 MG TABLET PO SCH (08:34)
[2020-06-24] MEDS: QUEtiapine FUMARATE 25 MG TABLET PO SCH (08:34)
[2020-06-24] MEDS: FLUoxetine HCL 20 MG CAPSULE PO SCH (08:34)
[2020-06-24] MEDS: MULTIVITAMINS, THERAPEUTIC TABLET PO SCH (08:34)
[2020-06-24] MEDS: BusPIRone HCL 5 MG TABLET PO SCH ×3 (08:34→20:06)
[2020-06-24] MEDS: THIAMINE 100 MG TABLET PO SCH ×2 (08:34→16:10)
[2020-06-24] MEDS: OMEGA-3/DHA/EPA/FISH OIL 1,000 MG CAPSULE PO SCH (08:34)
[2020-06-24] MEDS: INSULIN GLARGINE,HUM.REC.ANLOG 100 UNITS/ML SQ SCH ×2 (08:47→16:13)
[2020-06-24 08:50] LABS: COVID AG,FIA SOURCE NASOPHARYNGEAL
[2020-06-24] MEDS: LORazepam 2 MG TABLET PO PRN ×2 (10:22→18:14)
[2020-06-24 11:12] LABS: GLUCOMETER DEV NAME(LOC) BV2S.; GLUCOSE,POINT OF CARE 259 MG/DL (70-110)
[2020-06-24] MEDS: HALOPERIDOL 5 MG TABLET PO PRN (14:08)
[2020-06-24 16:21] LABS: GLUCOMETER DEV NAME(LOC) BV2S.; GLUCOSE,POINT OF CARE 153 MG/DL (70-110)
[2020-06-24 16:27] VITALS: BP 107/72
[2020-06-24] MEDS: QUEtiapine FUMARATE 200 MG TABLET PO SCH (20:06)
[2020-06-24 21:13] LABS: GLUCOMETER DEV NAME(LOC) BV2S.; GLUCOSE,POINT OF CARE 159 MG/DL (70-110)
[2020-06-25 00:58] VITALS: BP 113/62
[2020-06-25] MEDS: INSULIN LISPRO 100 UNITS/ML SQ PRN ×3 (07:16→21:10)
[2020-06-25 07:23] LABS: GLUCOMETER DEV NAME(LOC) BV2S.; GLUCOSE,POINT OF CARE 293 MG/DL (70-110)
[2020-06-25] MEDS: OMEGA-3/DHA/EPA/FISH OIL 1,000 MG CAPSULE PO SCH (08:10)
[2020-06-25] MEDS: MULTIVITAMINS, THERAPEUTIC TABLET PO SCH (08:10)
[2020-06-25] MEDS: FOLIC ACID 1 MG TABLET PO SCH (08:10)
[2020-06-25] MEDS: BusPIRone HCL 5 MG TABLET PO SCH ×3 (08:10→20:12)
[2020-06-25] MEDS: THIAMINE 100 MG TABLET PO SCH ×2 (08:11→16:18)
[2020-06-25] MEDS: QUEtiapine FUMARATE 25 MG TABLET PO SCH (08:11)
[2020-06-25] MEDS: FLUoxetine HCL 20 MG CAPSULE PO SCH (08:11)
[2020-06-25 08:18] VITALS: BP 112/61
[2020-06-25] MEDS: INSULIN GLARGINE,HUM.REC.ANLOG 100 UNITS/ML SQ SCH ×2 (08:43→17:53)
[2020-06-25] MEDS ORDERED: INSULIN LISPRO 100 UNITS/ML SQ ONE (11:15)
[2020-06-25 12:28] LABS: GLUCOMETER DEV NAME(LOC) BV2S.; GLUCOSE,POINT OF CARE 488 MG/DL (70-110)
[2020-06-25 12:28] LABS: GLUCOMETER DEV NAME(LOC) BV2S.; GLUCOSE,POINT OF CARE 330 MG/DL (70-110)
[2020-06-25] MEDS: LORazepam 2 MG TABLET PO PRN ×2 (12:35→17:31)
[2020-06-25 14:19] LABS: GLUCOMETER DEV NAME(LOC) BV2S.; GLUCOSE,POINT OF CARE 137 MG/DL (70-110)
[2020-06-25] MEDS: HALOPERIDOL 5 MG TABLET PO PRN (16:21)
[2020-06-25 16:23] VITALS: BP 115/74
[2020-06-25 16:24] LABS: GLUCOMETER DEV NAME(LOC) BV2S.; GLUCOSE,POINT OF CARE 243 MG/DL (70-110)
[2020-06-25] MEDS: QUEtiapine FUMARATE 200 MG TABLET PO SCH (20:12)
[2020-06-25 20:29] LABS: GLUCOMETER DEV NAME(LOC) BV2S.; GLUCOSE,POINT OF CARE 266 MG/DL (70-110)
[2020-06-25] MEDS: ZOLPIDEM TARTRATE 10 MG TABLET PO PRN (20:33)
[2020-06-26 00:29] VITALS: BP 117/72
[2020-06-26 06:39] LABS: GLUCOMETER DEV NAME(LOC) BV2S.; GLUCOSE,POINT OF CARE 256 MG/DL (70-110)
[2020-06-26] MEDS: INSULIN LISPRO 100 UNITS/ML SQ PRN ×4 (06:47→20:25)
[2020-06-26] MEDS: OMEGA-3/DHA/EPA/FISH OIL 1,000 MG CAPSULE PO SCH (08:37)
[2020-06-26] MEDS: MULTIVITAMINS, THERAPEUTIC TABLET PO SCH (08:37)
[2020-06-26] MEDS: QUEtiapine FUMARATE 25 MG TABLET PO SCH (08:37)
[2020-06-26] MEDS: BusPIRone HCL 5 MG TABLET PO SCH ×3 (08:37→20:19)
[2020-06-26] MEDS: FOLIC ACID 1 MG TABLET PO SCH (08:37)
[2020-06-26] MEDS: FLUoxetine HCL 20 MG CAPSULE PO SCH (08:37)
[2020-06-26] MEDS: THIAMINE 100 MG TABLET PO SCH ×2 (08:37→16:14)
[2020-06-26] MEDS: INSULIN GLARGINE,HUM.REC.ANLOG 100 UNITS/ML SQ SCH ×2 (08:55→16:12)
[2020-06-26 08:56] VITALS: BP 102/67
[2020-06-26 11:50] LABS: GLUCOMETER DEV NAME(LOC) BV2S.; GLUCOSE,POINT OF CARE 278 MG/DL (70-110)
[2020-06-26] MEDS: LORazepam 2 MG TABLET PO PRN (13:55)
[2020-06-26] MEDS: HALOPERIDOL 5 MG TABLET PO PRN (13:55)
[2020-06-26 16:32] VITALS: BP 113/70
[2020-06-26 16:35] LABS: GLUCOMETER DEV NAME(LOC) BV2S.; GLUCOSE,POINT OF CARE 294 MG/DL (70-110)
[2020-06-26] MEDS: QUEtiapine FUMARATE 200 MG TABLET PO SCH (20:19)
[2020-06-26 21:23] LABS: GLUCOMETER DEV NAME(LOC) BV2S.; GLUCOSE,POINT OF CARE 147 MG/DL (70-110)
[2020-06-27 00:56] VITALS: BP 112/62
[2020-06-27] MEDS: INSULIN LISPRO 100 UNITS/ML SQ PRN ×4 (06:35→20:58)
[2020-06-27 06:44] LABS: GLUCOMETER DEV NAME(LOC) BV2S.; GLUCOSE,POINT OF CARE 166 MG/DL (70-110)
[2020-06-27] MEDS: MULTIVITAMINS, THERAPEUTIC TABLET PO SCH (08:09)
[2020-06-27] MEDS: FLUoxetine HCL 20 MG CAPSULE PO SCH (08:09)
[2020-06-27] MEDS: BusPIRone HCL 5 MG TABLET PO SCH ×3 (08:09→20:04)
[2020-06-27] MEDS: OMEGA-3/DHA/EPA/FISH OIL 1,000 MG CAPSULE PO SCH (08:09)
[2020-06-27] MEDS: FOLIC ACID 1 MG TABLET PO SCH (08:09)
[2020-06-27] MEDS: THIAMINE 100 MG TABLET PO SCH ×2 (08:09→15:56)
[2020-06-27] MEDS: QUEtiapine FUMARATE 25 MG TABLET PO SCH (08:11)
[2020-06-27] MEDS: INSULIN GLARGINE,HUM.REC.ANLOG 100 UNITS/ML SQ SCH ×2 (08:26→17:35)
[2020-06-27 08:38] VITALS: BP 113/65
[2020-06-27 11:08] LABS: GLUCOMETER DEV NAME(LOC) BV2S.; GLUCOSE,POINT OF CARE 174 MG/DL (70-110)
[2020-06-27] MEDS: LORazepam 2 MG TABLET PO PRN ×2 (12:13→16:46)
[2020-06-27] MEDS: HALOPERIDOL 5 MG TABLET PO PRN (12:13)
[2020-06-27 16:19] LABS: GLUCOMETER DEV NAME(LOC) BV2S.; GLUCOSE,POINT OF CARE 286 MG/DL (70-110)
[2020-06-27 16:34] VITALS: BP 103/66
[2020-06-27] MEDS: QUEtiapine FUMARATE 200 MG TABLET PO SCH (20:04)
[2020-06-27 20:19] LABS: GLUCOMETER DEV NAME(LOC) BV2S.; GLUCOSE,POINT OF CARE 220 MG/DL (70-110)
[2020-06-28 01:12] VITALS: BP 110/61
[2020-06-28] MEDS: INSULIN LISPRO 100 UNITS/ML SQ PRN ×2 (06:28→20:17)
[2020-06-28 06:30] LABS: GLUCOMETER DEV NAME(LOC) BV2S.; GLUCOSE,POINT OF CARE 292 MG/DL (70-110)
[2020-06-28] MEDS: OMEGA-3/DHA/EPA/FISH OIL 1,000 MG CAPSULE PO SCH (08:38)
[2020-06-28] MEDS: THIAMINE 100 MG TABLET PO SCH ×2 (08:38→16:57)
[2020-06-28] MEDS: FLUoxetine HCL 20 MG CAPSULE PO SCH (08:39)
[2020-06-28] MEDS: MULTIVITAMINS, THERAPEUTIC TABLET PO SCH (08:39)
[2020-06-28] MEDS: QUEtiapine FUMARATE 25 MG TABLET PO SCH (08:39)
[2020-06-28] MEDS: BusPIRone HCL 5 MG TABLET PO SCH ×3 (08:39→20:14)
[2020-06-28] MEDS: FOLIC ACID 1 MG TABLET PO SCH (08:39)
[2020-06-28 08:44] VITALS: BP 104/74
[2020-06-28] MEDS: INSULIN GLARGINE,HUM.REC.ANLOG 100 UNITS/ML SQ SCH ×2 (08:51→16:59)
[2020-06-28] MEDS ORDERED: INSULIN LISPRO 100 UNITS/ML SQ ONE (11:00)
[2020-06-28 11:11] LABS: GLUCOMETER DEV NAME(LOC) BV2S.; GLUCOSE,POINT OF CARE 455 MG/DL (70-110)
[2020-06-28] MEDS: LORazepam 2 MG TABLET PO PRN ×2 (11:47→17:13)
[2020-06-28 12:10] LABS: GLUCOMETER DEV NAME(LOC) BV2S.; GLUCOSE,POINT OF CARE 351 MG/DL (70-110)
[2020-06-28 14:05] LABS: GLUCOMETER DEV NAME(LOC) BV2S.; GLUCOSE,POINT OF CARE 135 MG/DL (70-110)
[2020-06-28 16:26] VITALS: BP 111/64
[2020-06-28 17:15] LABS: GLUCOMETER DEV NAME(LOC) BV2S.; GLUCOSE,POINT OF CARE 118 MG/DL (70-110)
[2020-06-28] MEDS: HALOPERIDOL 5 MG TABLET PO PRN (18:20)
[2020-06-28] MEDS: QUEtiapine FUMARATE 200 MG TABLET PO SCH (20:14)
[2020-06-28 22:14] LABS: GLUCOMETER DEV NAME(LOC) BV2S.; GLUCOSE,POINT OF CARE 188 MG/DL (70-110)
[2020-06-29 00:34] VITALS: BP 116/67
[2020-06-29 06:04] LABS: GLUCOMETER DEV NAME(LOC) BV2S.; GLUCOSE,POINT OF CARE 228 MG/DL (70-110)
[2020-06-29] MEDS: INSULIN LISPRO 100 UNITS/ML SQ PRN ×4 (06:40→20:13)
[2020-06-29] MEDS: FLUoxetine HCL 20 MG CAPSULE PO SCH (08:16)
[2020-06-29] MEDS: BusPIRone HCL 5 MG TABLET PO SCH ×3 (08:17→20:11)
[2020-06-29] MEDS: FOLIC ACID 1 MG TABLET PO SCH (08:17)
[2020-06-29] MEDS: THIAMINE 100 MG TABLET PO SCH ×2 (08:17→16:10)
[2020-06-29] MEDS: QUEtiapine FUMARATE 25 MG TABLET PO SCH (08:17)
[2020-06-29] MEDS: OMEGA-3/DHA/EPA/FISH OIL 1,000 MG CAPSULE PO SCH (08:17)
[2020-06-29] MEDS: MULTIVITAMINS, THERAPEUTIC TABLET PO SCH (08:17)
[2020-06-29] MEDS: INSULIN GLARGINE,HUM.REC.ANLOG 100 UNITS/ML SQ SCH ×2 (08:24→16:14)
[2020-06-29 08:42] VITALS: BP 93/60
[2020-06-29 11:32] LABS: GLUCOMETER DEV NAME(LOC) BV2S.; GLUCOSE,POINT OF CARE 337 MG/DL (70-110)
[2020-06-29] MEDS: LORazepam 2 MG TABLET PO PRN (13:14)
[2020-06-29 16:17] VITALS: BP 103/64
[2020-06-29 16:24] LABS: GLUCOMETER DEV NAME(LOC) BV2S.; GLUCOSE,POINT OF CARE 278 MG/DL (70-110)
[2020-06-29] MEDS: QUEtiapine FUMARATE 200 MG TABLET PO SCH (20:11)
[2020-06-29] MEDS: ZOLPIDEM TARTRATE 10 MG TABLET PO PRN (20:35)
[2020-06-29 20:57] LABS: GLUCOMETER DEV NAME(LOC) BV2S.; GLUCOSE,POINT OF CARE 269 MG/DL (70-110)
[2020-06-29 22:33] LABS: GLUCOMETER DEV NAME(LOC) BV2S.; GLUCOSE,POINT OF CARE 78 MG/DL (70-110)
[2020-06-30 00:59] VITALS: BP 110/67
[2020-06-30 06:46] LABS: GLUCOMETER DEV NAME(LOC) BV2S.; GLUCOSE,POINT OF CARE 252 MG/DL (70-110)
[2020-06-30] MEDS: INSULIN LISPRO 100 UNITS/ML SQ PRN ×2 (06:46→10:58)
[2020-06-30] MEDS: BusPIRone HCL 5 MG TABLET PO SCH (08:08)
[2020-06-30] MEDS: QUEtiapine FUMARATE 25 MG TABLET PO SCH (08:08)
[2020-06-30] MEDS: FOLIC ACID 1 MG TABLET PO SCH (08:08)
[2020-06-30] MEDS: FLUoxetine HCL 20 MG CAPSULE PO SCH (08:08)
[2020-06-30] MEDS: OMEGA-3/DHA/EPA/FISH OIL 1,000 MG CAPSULE PO SCH (08:08)
[2020-06-30] MEDS: MULTIVITAMINS, THERAPEUTIC TABLET PO SCH (08:08)
[2020-06-30] MEDS: THIAMINE 100 MG TABLET PO SCH (08:08)
[2020-06-30] MEDS: INSULIN GLARGINE,HUM.REC.ANLOG 100 UNITS/ML SQ SCH (08:26)
[2020-06-30 08:37] VITALS: BP 113/76
[2020-06-30 11:11] LABS: GLUCOMETER DEV NAME(LOC) BV2S.; GLUCOSE,POINT OF CARE 228 MG/DL (70-110)
[2020-06-30] MEDS ORDERED: OMEG-135 PO (11:40)
[2020-06-30] MEDS ORDERED: QUET200T PO (11:40)
[2020-06-30] MEDS ORDERED: QUET25TA PO (11:41)
[2020-06-30] MEDS ORDERED: FOLI-130 PO (11:41)
[2020-06-30] MEDS ORDERED: FLUO-191 PO (11:41)
[2020-06-30] MEDS ORDERED: MULT-1192 PO (11:42)
[2020-06-30] MEDS ORDERED: THIA100T80 PO (11:45)
[2020-06-30] MEDS ORDERED: INSLAN SQ (11:53)
== END 2020-06-30 13:40 | disposition home or self-care (01) | DRG 750 ==
LOC: B3A 20:05 → B2S 06-23 11:09
PROVIDERS: ADMIT Psychiatry & Neurology Psychiatry; ATTEND Psychiatry & Neurology Psychiatry
DX: F25.1 Schizoaffective disorder, depressive type (principal); I10 Essential (primary) hypertension; R45.851 Suicidal ideations; F15.10 Other stimulant abuse, uncomplicated; F12.10 Cannabis abuse, uncomplicated; D64.9 Anemia, unspecified; F32.9 Major depressive disorder, single episode, unspecified; F10.10 Alcohol abuse, uncomplicated; E87.6 Hypokalemia; Z20.822 Contact with and (suspected) exposure to COVID-19; E11.9 Type 2 diabetes mellitus without complications; Z79.899 Other long term (current) drug therapy; Z91.14 Patient's other noncompliance with medication regimen
CPT/HCPCS: 83036; 84132; 84436; 84439; 84443; 87426; 90686; J1610; J1815

== ENCOUNTER 2020-08-06 11:50 | Inpatient (IN) | payer MEDICAID ==
[~2020-08-06] VITALS: Ht 177.8 cm; Wt 77.5 kg
[~2020-08-06 11:50] MED LIST changes: +FOLI-130 PO; +MULT-1192 PO; +OMEG-135 PO; -QUET100T PO; +QUET200T PO; +QUET25TA PO; +THIA100T80 PO
[2020-08-06 19:28] LABS: COVID AG,FIA SOURCE NASAL SWAB
[2020-08-06] MEDS ORDERED: HALOPERIDOL 5 MG TABLET PO PRN (20:00)
[2020-08-06] MEDS ORDERED: INFLUENZA VIRUS VACCINE QVS 2020-21 (6MO+)/PF 60 MCG/0.5 ML SYRINGE IM ONE (20:45)
[2020-08-06 21:49] LABS: GLUCOMETER DEV NAME(LOC) BV2X.; GLUCOSE,POINT OF CARE 589 MG/DL (70-110)
[2020-08-06 22:27] VITALS: BP 140/88
[2020-08-06] MEDS ORDERED: INSULIN LISPRO 100 UNITS/ML SQ ONE (22:30)
[2020-08-06] MEDS ORDERED: GLUCAGON,HUMAN RECOMBINANT 1 MG VIAL IM PRN (22:30)
[2020-08-06] MEDS: ZOLPIDEM TARTRATE 10 MG TABLET PO PRN (22:40)
[2020-08-06 23:10] LABS: GLUCOMETER DEV NAME(LOC) BV2S.; GLUCOSE,POINT OF CARE 487 MG/DL (70-110)
[2020-08-07 00:51] VITALS: BP 125/76
[2020-08-07 05:46] VITALS: BP 122/80
[2020-08-07] MEDS: LORazepam 2 MG TABLET PO PRN ×3 (05:49→16:22)
[2020-08-07 06:06] LABS: GLUCOMETER DEV NAME(LOC) BV2S.; GLUCOSE,POINT OF CARE 266 MG/DL (70-110)
[2020-08-07] MEDS ORDERED: ACETAMINOPHEN 325 MG TABLET PO PRN (06:45)
[2020-08-07] MEDS ORDERED: MAGNESIUM HYDROXIDE SUSPENSION 30 ML UDCUP PO PRN (06:45)
[2020-08-07] MEDS ORDERED: DOCUSATE SODIUM 100 MG CAPSULE PO PRN (06:45)
[2020-08-07] MEDS ORDERED: ONDANSETRON HCL 4 MG TABLET PO PRN (06:45)
[2020-08-07] MEDS ORDERED: NICOTINE 14 MG/24 HOUR PATCH TD PRN (06:45)
[2020-08-07] MEDS ORDERED: LOPERAMIDE HCL 2 MG CAPSULE PO PRN (06:45)
[2020-08-07] MEDS ORDERED: CloNIDine HCL 0.1 MG TABLET PO PRN (06:45)
[2020-08-07] MEDS ORDERED: PETROLATUM,WHITE 28 GM JELLY TP PRN (06:45)
[2020-08-07] MEDS ORDERED: ALBUTEROL SULFATE HFA 90 MCG/PUFF 8 GM INHALER IH PRN (06:45)
[2020-08-07] MEDS ORDERED: IBUPROFEN 400 MG TABLET PO PRN (06:45)
[2020-08-07] MEDS ORDERED: MAG HYDROX/AL HYDROX/SIMETH ES 30 ML SUSPENSION UDCUP PO PRN (06:45)
[2020-08-07] MEDS ORDERED: GuaiFENesin/D-METHORPHAN [SUGAR-FREE] 200-20MG/10 ML SYRUP UDCUP PO PRN (06:45)
[2020-08-07] MEDS: INSULIN LISPRO 100 UNITS/ML SQ PRN ×4 (06:49→20:15)
[2020-08-07] MEDS: FOLIC ACID 1 MG TABLET PO SCH (08:18)
[2020-08-07] MEDS: OMEGA-3/DHA/EPA/FISH OIL 1,000 MG CAPSULE PO SCH (08:18)
[2020-08-07] MEDS: THIAMINE 100 MG TABLET PO SCH (08:18)
[2020-08-07 08:19] LABS: BASOPHILS % (AUTO) 2.5 % (0.0-2.0); EOSINOPHILS % (AUTO) 3.5 % (1.0-6.0); HEMATOCRIT 40.9 % (41-53); HEMOGLOBIN 13.9 g/dL (13.5-17.5); LYMPHOCYTES # (AUTO) 2.1 K/uL (1.0-4.8); LYMPHOCYTES % (AUTO) 27.9 % (22.0-44.0); MEAN CORPUSCULAR HEMOGLOBIN 29.4 pg (26.0-34.0); MEAN CORPUSCULAR HGB CONC 33.9 G/dL (31.0-37.0); MEAN CORPUSCULAR VOLUME 87 fL (80-100); MONOCYTES # (AUTO) 0.6 K/uL (0.1-1.0); MONOCYTES % (AUTO) 8.4 % (2.0-9.0); NEUTROPHILS # (AUTO) 4.4 K/uL (1.8-7.7); NEUTROPHILS % (AUTO) 57.7 % (40.0-70.0); PLATELET COUNT (AUTO) 306 K/uL (150-450); RED BLOOD CELL COUNT(AUTO) 4.71 MIL/uL (4.50-5.90); RED CELL DISTRIBUTION WIDTH 15.7 % (11.5-14.5)
[2020-08-07 08:27] LABS: HEMOGLOBIN A1C 10.5 % (3.8-5.6)
[2020-08-07 08:36] VITALS: BP 152/82
[2020-08-07] MEDS: INSULIN GLARGINE,HUM.REC.ANLOG 100 UNITS/ML SQ SCH ×2 (08:36→16:38)
[2020-08-07 08:44] LABS: ALANINE AMINOTRANSFERASE 37 U/L (12-78); ALBUMIN 3.9 g/dL (3.4-5.0); ALKALINE PHOSPHATASE 128 U/L (46-116); ANION GAP 12 mmol/L (8-16); ASPARTATE AMINOTRANSFERASE 16 U/L (15-37); CALCIUM, TOTAL 9.4 mg/dL (8.8-10.5); CARBON DIOXIDE 25 mmol/L (22-29); CHLORIDE 96 mmol/L (98-107); CHOL/HDL RATIO 2.4 (4.2-7.3); CHOLESTEROL 178 mg/dL (131-200); CREATININE 0.95 mg/dL (0.60-1.30); FREE T4 (FREE THYROXINE) 1.11 ng/dL (0.76-1.46); GLOMERULAR FILTR. RATE CALC > 60 mL/min (>60); GLUCOSE,RANDOM 294 mg/dL (70-110); HDL CHOLESTEROL 75 mg/dL (40-60); LDL CHOL (CALC.) 76 mg/dL (0-130); POTASSIUM 4.5 mmol/L (3.5-5.1); SODIUM SERUM 133 mmol/L (136-145); THYROID STIMULATING HORMONE 2.49 uIU/mL (0.36-3.74); TOTAL PROTEIN, SERUM 7.4 g/dL (6.4-8.2); TRIGLYCERIDES 135 mg/dL (15-150); UREA NITROGEN, BLOOD 19 mg/dL (7-18)
[2020-08-07 11:14] LABS: GLUCOMETER DEV NAME(LOC) BV2S.; GLUCOSE,POINT OF CARE 314 MG/DL (70-110)
[2020-08-07 16:06] VITALS: BP 118/73
[2020-08-07 16:39] LABS: GLUCOMETER DEV NAME(LOC) BV2S.; GLUCOSE,POINT OF CARE 400 MG/DL (70-110)
[2020-08-07 21:51] LABS: GLUCOMETER DEV NAME(LOC) BV2S.; GLUCOSE,POINT OF CARE 169 MG/DL (70-110)
[2020-08-07] MEDS: ZOLPIDEM TARTRATE 10 MG TABLET PO PRN (21:55)
[2020-08-08 01:04] VITALS: BP 105/74
[2020-08-08 06:20] LABS: GLUCOMETER DEV NAME(LOC) BV2S.; GLUCOSE,POINT OF CARE 370 MG/DL (70-110)
[2020-08-08] MEDS: INSULIN LISPRO 100 UNITS/ML SQ PRN ×4 (06:50→21:16)
[2020-08-08 08:20] VITALS: BP 137/67
[2020-08-08] MEDS: FOLIC ACID 1 MG TABLET PO SCH (08:21)
[2020-08-08] MEDS: FLUoxetine HCL 20 MG CAPSULE PO SCH (08:22)
[2020-08-08] MEDS: THIAMINE 100 MG TABLET PO SCH (08:22)
[2020-08-08] MEDS: OMEGA-3/DHA/EPA/FISH OIL 1,000 MG CAPSULE PO SCH (08:22)
[2020-08-08] MEDS: BusPIRone HCL 5 MG TABLET PO SCH ×3 (08:22→20:38)
[2020-08-08] MEDS: QUEtiapine FUMARATE 25 MG TABLET PO SCH (08:26)
[2020-08-08] MEDS: INSULIN GLARGINE,HUM.REC.ANLOG 100 UNITS/ML SQ SCH ×2 (08:30→16:57)
[2020-08-08] MEDS: LORazepam 2 MG TABLET PO PRN ×2 (09:01→18:24)
[2020-08-08 11:19] LABS: GLUCOMETER DEV NAME(LOC) BV2S.; GLUCOSE,POINT OF CARE 230 MG/DL (70-110)
[2020-08-08 16:06] VITALS: BP 105/60
[2020-08-08 16:57] LABS: GLUCOMETER DEV NAME(LOC) BV2S.; GLUCOSE,POINT OF CARE 233 MG/DL (70-110)
[2020-08-08] MEDS: QUEtiapine FUMARATE 200 MG TABLET PO SCH (20:38)
[2020-08-08 21:24] LABS: GLUCOMETER DEV NAME(LOC) BV2S.; GLUCOSE,POINT OF CARE 183 MG/DL (70-110)
[2020-08-08 22:26] LABS: GLUCOMETER DEV NAME(LOC) BV2S.; GLUCOSE,POINT OF CARE 90 MG/DL (70-110)
[2020-08-08] MEDS: ZOLPIDEM TARTRATE 10 MG TABLET PO PRN (22:36)
[2020-08-08 23:16] LABS: GLUCOMETER DEV NAME(LOC) BV2S.; GLUCOSE,POINT OF CARE 173 MG/DL (70-110)
[2020-08-09 06:21] VITALS: BP 118/68
[2020-08-09 06:22] LABS: GLUCOMETER DEV NAME(LOC) BV2S.; GLUCOSE,POINT OF CARE 145 MG/DL (70-110)
[2020-08-09] MEDS: INSULIN LISPRO 100 UNITS/ML SQ PRN ×4 (06:39→20:09)
[2020-08-09 08:28] VITALS: BP 102/62
[2020-08-09] MEDS: FOLIC ACID 1 MG TABLET PO SCH (08:36)
[2020-08-09] MEDS: FLUoxetine HCL 20 MG CAPSULE PO SCH (08:36)
[2020-08-09] MEDS: THIAMINE 100 MG TABLET PO SCH (08:36)
[2020-08-09] MEDS: OMEGA-3/DHA/EPA/FISH OIL 1,000 MG CAPSULE PO SCH (08:36)
[2020-08-09] MEDS: QUEtiapine FUMARATE 25 MG TABLET PO SCH (08:36)
[2020-08-09] MEDS: BusPIRone HCL 5 MG TABLET PO SCH ×3 (08:36→20:04)
[2020-08-09] MEDS: INSULIN GLARGINE,HUM.REC.ANLOG 100 UNITS/ML SQ SCH ×2 (08:48→16:39)
[2020-08-09 11:14] LABS: GLUCOMETER DEV NAME(LOC) BV2S.; GLUCOSE,POINT OF CARE 199 MG/DL (70-110)
[2020-08-09 16:11] VITALS: BP 116/76
[2020-08-09 16:52] LABS: GLUCOMETER DEV NAME(LOC) BV2S.; GLUCOSE,POINT OF CARE 342 MG/DL (70-110)
[2020-08-09] MEDS: QUEtiapine FUMARATE 200 MG TABLET PO SCH (20:04)
[2020-08-09 21:04] LABS: GLUCOMETER DEV NAME(LOC) BV2S.; GLUCOSE,POINT OF CARE 312 MG/DL (70-110)
[2020-08-09] MEDS: LORazepam 2 MG TABLET PO PRN (21:34)
[2020-08-09 22:13] LABS: GLUCOMETER DEV NAME(LOC) BV2S.; GLUCOSE,POINT OF CARE 87 MG/DL (70-110)
[2020-08-10 06:25] VITALS: BP 119/78
[2020-08-10] MEDS: INSULIN LISPRO 100 UNITS/ML SQ PRN ×4 (07:22→20:09)
[2020-08-10 07:31] LABS: GLUCOMETER DEV NAME(LOC) BV2S.; GLUCOSE,POINT OF CARE 307 MG/DL (70-110)
[2020-08-10] MEDS: BusPIRone HCL 5 MG TABLET PO SCH ×3 (08:19→20:04)
[2020-08-10] MEDS: FOLIC ACID 1 MG TABLET PO SCH (08:19)
[2020-08-10] MEDS: OMEGA-3/DHA/EPA/FISH OIL 1,000 MG CAPSULE PO SCH (08:19)
[2020-08-10] MEDS: THIAMINE 100 MG TABLET PO SCH (08:19)
[2020-08-10] MEDS: QUEtiapine FUMARATE 25 MG TABLET PO SCH (08:19)
[2020-08-10] MEDS: FLUoxetine HCL 20 MG CAPSULE PO SCH (08:19)
[2020-08-10] MEDS: INSULIN GLARGINE,HUM.REC.ANLOG 100 UNITS/ML SQ SCH ×2 (08:27→16:43)
[2020-08-10 09:38] VITALS: BP 124/88
[2020-08-10 11:48] LABS: GLUCOMETER DEV NAME(LOC) BV2S.; GLUCOSE,POINT OF CARE 364 MG/DL (70-110)
[2020-08-10 13:41] LABS: GLUCOMETER DEV NAME(LOC) BV2S.; GLUCOSE,POINT OF CARE 98 MG/DL (70-110)
[2020-08-10 16:11] VITALS: BP 126/72
[2020-08-10 17:43] LABS: GLUCOMETER DEV NAME(LOC) BV2S.; GLUCOSE,POINT OF CARE 228 MG/DL (70-110)
[2020-08-10] MEDS: QUEtiapine FUMARATE 200 MG TABLET PO SCH (20:04)
[2020-08-10 20:55] LABS: GLUCOMETER DEV NAME(LOC) BV2S.; GLUCOSE,POINT OF CARE 333 MG/DL (70-110)
[2020-08-11 00:29] VITALS: BP 107/63
[2020-08-11 07:30] LABS: GLUCOMETER DEV NAME(LOC) BV2S.; GLUCOSE,POINT OF CARE 97 MG/DL (70-110)
[2020-08-11 08:13] VITALS: BP 121/72
[2020-08-11 08:38] LABS: APPEARANCE,URINE CLEAR (CLEAR); BILIRUBIN,URINE NEGATIVE (NEGATIVE); GLUCOSE, URINE (UA) >=1000 mg/dL (NEGATIVE); KETONES,URINE NEGATIVE (NEGATIVE); LEUKOCYTE ESTERASE ,URINE NEGATIVE (NEGATIVE); NITRATE,URINE NEGATIVE (NEGATIVE); OCCULT BLOOD,URINE NEGATIVE (NEGATIVE); PH,URINE 5.5 (5.0-8.0); PROTEIN,URINE NEGATIVE (NEGATIVE); UROBILINOGEN,URINE 0.2 mg/dL (<=1.0)
[2020-08-11 08:47] LABS: AMPHET/METH SCREEN,URINE NEGATIVE (NEGATIVE); BARBITURATE SCREEN, URINE NEGATIVE (NEGATIVE); BENZODIAZEPINES SCREEN,URINE NEGATIVE (NEGATIVE); CANNABINOID SCREEN,URINE NEGATIVE (NEGATIVE); COCAINE SCREEN,URINE NEGATIVE (NEGATIVE); METHADONE SCREEN, URINE NEGATIVE (NEGATIVE); OPIATE SCREEN,URINE NEGATIVE (NEGATIVE)
[2020-08-11] MEDS: QUEtiapine FUMARATE 25 MG TABLET PO SCH (08:48)
[2020-08-11] MEDS: OMEGA-3/DHA/EPA/FISH OIL 1,000 MG CAPSULE PO SCH (08:48)
[2020-08-11] MEDS: BusPIRone HCL 5 MG TABLET PO SCH ×3 (08:48→20:07)
[2020-08-11] MEDS: FOLIC ACID 1 MG TABLET PO SCH (08:48)
[2020-08-11] MEDS: FLUoxetine HCL 20 MG CAPSULE PO SCH (08:48)
[2020-08-11] MEDS: THIAMINE 100 MG TABLET PO SCH (08:48)
[2020-08-11 08:50] LABS: PHENCYCLIDINE SCREEN,URINE NEGATIVE (NEGATIVE)
[2020-08-11] MEDS: INSULIN GLARGINE,HUM.REC.ANLOG 100 UNITS/ML SQ SCH ×2 (08:55→16:33)
[2020-08-11 09:50] LABS: BACTERIA,URINE None Seen /HPF (None Seen); RBC,URINE None Seen /HPF (0-2); SQUAMOUS EPITHELIAL CELL,UR None Seen /LPF (None Seen); WBC,URINE None Seen /HPF (0-5)
[2020-08-11] MEDS ORDERED: INSULIN LISPRO 100 UNITS/ML SQ ONE (12:15)
[2020-08-11 12:40] LABS: GLUCOMETER DEV NAME(LOC) BV2S.; GLUCOSE,POINT OF CARE 496 MG/DL (70-110)
[2020-08-11 12:40] LABS: GLUCOMETER DEV NAME(LOC) BV2S.; GLUCOSE,POINT OF CARE 280 MG/DL (70-110)
[2020-08-11] MEDS: LORazepam 2 MG TABLET PO PRN (14:27)
[2020-08-11 16:13] VITALS: BP 137/90
[2020-08-11] MEDS: INSULIN LISPRO 100 UNITS/ML SQ PRN ×2 (16:34→20:08)
[2020-08-11 17:04] LABS: GLUCOMETER DEV NAME(LOC) BV2S.; GLUCOSE,POINT OF CARE 247 MG/DL (70-110)
[2020-08-11] MEDS: QUEtiapine FUMARATE 200 MG TABLET PO SCH (20:07)
[2020-08-11 20:29] LABS: GLUCOMETER DEV NAME(LOC) BV2S.; GLUCOSE,POINT OF CARE 241 MG/DL (70-110)
[2020-08-11] MEDS: ZOLPIDEM TARTRATE 10 MG TABLET PO PRN (21:02)
[2020-08-11 21:49] LABS: GLUCOMETER DEV NAME(LOC) BV2S.; GLUCOSE,POINT OF CARE 226 MG/DL (70-110)
[2020-08-12 00:30] VITALS: BP 141/72
[2020-08-12] MEDS: INSULIN LISPRO 100 UNITS/ML SQ PRN ×2 (07:10→12:18)
[2020-08-12 07:16] LABS: GLUCOMETER DEV NAME(LOC) BV2S.; GLUCOSE,POINT OF CARE 254 MG/DL (70-110)
[2020-08-12 08:45] VITALS: BP 109/61
[2020-08-12] MEDS: BusPIRone HCL 5 MG TABLET PO SCH ×3 (09:06→20:10)
[2020-08-12] MEDS: OMEGA-3/DHA/EPA/FISH OIL 1,000 MG CAPSULE PO SCH (09:06)
[2020-08-12] MEDS: FLUoxetine HCL 20 MG CAPSULE PO SCH (09:06)
[2020-08-12] MEDS: THIAMINE 100 MG TABLET PO SCH (09:06)
[2020-08-12] MEDS: QUEtiapine FUMARATE 25 MG TABLET PO SCH (09:06)
[2020-08-12] MEDS: FOLIC ACID 1 MG TABLET PO SCH (09:06)
[2020-08-12] MEDS: INSULIN GLARGINE,HUM.REC.ANLOG 100 UNITS/ML SQ SCH (09:11)
[2020-08-12 09:17] LABS: GLUCOMETER DEV NAME(LOC) BV2S.; GLUCOSE,POINT OF CARE 360 MG/DL (70-110)
[2020-08-12 11:30] LABS: GLUCOMETER DEV NAME(LOC) BV2S.; GLUCOSE,POINT OF CARE 288 MG/DL (70-110)
[2020-08-12] MEDS: LORazepam 2 MG TABLET PO PRN ×2 (16:12→20:10)
[2020-08-12 16:22] VITALS: BP 140/77
[2020-08-12 16:57] LABS: GLUCOMETER DEV NAME(LOC) BV2S.; GLUCOSE,POINT OF CARE 447 MG/DL (70-110)
[2020-08-12] MEDS ORDERED: INSULIN LISPRO 100 UNITS/ML SQ ONE (17:30)
[2020-08-12] MEDS: QUEtiapine FUMARATE 200 MG TABLET PO SCH (20:10)
[2020-08-12] MEDS: ZOLPIDEM TARTRATE 10 MG TABLET PO PRN (21:50)
[2020-08-12 21:58] LABS: GLUCOMETER DEV NAME(LOC) BV2S.; GLUCOSE,POINT OF CARE 189 MG/DL (70-110)
[2020-08-13 00:40] VITALS: BP 116/74
[2020-08-13 07:52] LABS: GLUCOMETER DEV NAME(LOC) BV2S.; GLUCOSE,POINT OF CARE 372 MG/DL (70-110)
[2020-08-13] MEDS: THIAMINE 100 MG TABLET PO SCH (08:31)
[2020-08-13] MEDS: OMEGA-3/DHA/EPA/FISH OIL 1,000 MG CAPSULE PO SCH (08:32)
[2020-08-13] MEDS: FOLIC ACID 1 MG TABLET PO SCH (08:32)
[2020-08-13] MEDS: QUEtiapine FUMARATE 25 MG TABLET PO SCH (08:32)
[2020-08-13] MEDS: FLUoxetine HCL 20 MG CAPSULE PO SCH (08:32)
[2020-08-13] MEDS: BusPIRone HCL 5 MG TABLET PO SCH ×3 (08:32→20:47)
[2020-08-13 08:36] VITALS: BP 132/84
[2020-08-13] MEDS ORDERED: INSULIN GLARGINE,HUM.REC.ANLOG 100 UNITS/ML SQ SCH (09:00)
[2020-08-13] MEDS: LORazepam 2 MG TABLET PO PRN ×2 (10:54→20:01)
[2020-08-13 11:34] LABS: GLUCOMETER DEV NAME(LOC) BV2S.; GLUCOSE,POINT OF CARE 415 MG/DL (70-110)
[2020-08-13] MEDS ORDERED: INSULIN LISPRO 100 UNITS/ML SQ ONE (12:15)
[2020-08-13 16:15] VITALS: BP 117/68
[2020-08-13 16:35] LABS: GLUCOMETER DEV NAME(LOC) BV2S.; GLUCOSE,POINT OF CARE 271 MG/DL (70-110)
[2020-08-13] MEDS: INSULIN LISPRO 100 UNITS/ML SQ PRN ×2 (16:42→21:12)
[2020-08-13] MEDS: INSULIN GLARGINE,HUM.REC.ANLOG 100 UNITS/ML SQ SCH (16:43)
[2020-08-13 20:14] LABS: GLUCOMETER DEV NAME(LOC) BV2S.; GLUCOSE,POINT OF CARE 234 MG/DL (70-110)
[2020-08-13] MEDS: QUEtiapine FUMARATE 200 MG TABLET PO SCH (20:47)
[2020-08-14 01:24] VITALS: BP 118/69
[2020-08-14 06:18] LABS: GLUCOMETER DEV NAME(LOC) BV2S.; GLUCOSE,POINT OF CARE 223 MG/DL (70-110)
[2020-08-14] MEDS: INSULIN LISPRO 100 UNITS/ML SQ PRN ×4 (06:43→21:10)
[2020-08-14 08:20] VITALS: BP 109/66
[2020-08-14] MEDS: BusPIRone HCL 5 MG TABLET PO SCH ×3 (08:49→20:20)
[2020-08-14] MEDS: OMEGA-3/DHA/EPA/FISH OIL 1,000 MG CAPSULE PO SCH (08:49)
[2020-08-14] MEDS: QUEtiapine FUMARATE 25 MG TABLET PO SCH (08:49)
[2020-08-14] MEDS: THIAMINE 100 MG TABLET PO SCH (08:49)
[2020-08-14] MEDS: FLUoxetine HCL 20 MG CAPSULE PO SCH (08:49)
[2020-08-14] MEDS: FOLIC ACID 1 MG TABLET PO SCH (08:50)
[2020-08-14] MEDS: INSULIN GLARGINE,HUM.REC.ANLOG 100 UNITS/ML SQ SCH ×2 (09:31→16:33)
[2020-08-14 11:30] LABS: GLUCOMETER DEV NAME(LOC) BV2S.; GLUCOSE,POINT OF CARE 349 MG/DL (70-110)
[2020-08-14 16:13] VITALS: BP 129/73
[2020-08-14 16:30] LABS: GLUCOMETER DEV NAME(LOC) BV2S.; GLUCOSE,POINT OF CARE 259 MG/DL (70-110)
[2020-08-14] MEDS: ZOLPIDEM TARTRATE 10 MG TABLET PO PRN (20:20)
[2020-08-14] MEDS: QUEtiapine FUMARATE 200 MG TABLET PO SCH (20:20)
[2020-08-14 21:26] LABS: GLUCOMETER DEV NAME(LOC) BV2S.; GLUCOSE,POINT OF CARE 313 MG/DL (70-110)
[2020-08-15 00:15] VITALS: BP 101/63
[2020-08-15] MEDS: LORazepam 2 MG TABLET PO PRN ×3 (01:10→22:02)
[2020-08-15 06:45] LABS: GLUCOMETER DEV NAME(LOC) BV2S.; GLUCOSE,POINT OF CARE 229 MG/DL (70-110)
[2020-08-15] MEDS: INSULIN LISPRO 100 UNITS/ML SQ PRN ×3 (06:50→17:04)
[2020-08-15 08:15] VITALS: BP 119/71
[2020-08-15] MEDS: FOLIC ACID 1 MG TABLET PO SCH (09:46)
[2020-08-15] MEDS: OMEGA-3/DHA/EPA/FISH OIL 1,000 MG CAPSULE PO SCH (09:46)
[2020-08-15] MEDS: THIAMINE 100 MG TABLET PO SCH (09:46)
[2020-08-15] MEDS: BusPIRone HCL 5 MG TABLET PO SCH ×3 (09:46→19:53)
[2020-08-15] MEDS: QUEtiapine FUMARATE 25 MG TABLET PO SCH (09:46)
[2020-08-15] MEDS: BuPROPion HCL XL 150 MG ER TABLET PO SCH (09:47)
[2020-08-15] MEDS: INSULIN GLARGINE,HUM.REC.ANLOG 100 UNITS/ML SQ SCH ×2 (10:13→17:04)
[2020-08-15 10:19] LABS: GLUCOMETER DEV NAME(LOC) BV2S.; GLUCOSE,POINT OF CARE 392 MG/DL (70-110)
[2020-08-15 12:42] LABS: GLUCOMETER DEV NAME(LOC) BV2S.; GLUCOSE,POINT OF CARE 111 MG/DL (70-110)
[2020-08-15 16:22] VITALS: BP 122/67
[2020-08-15 16:26] LABS: GLUCOMETER DEV NAME(LOC) BV2S.; GLUCOSE,POINT OF CARE 267 MG/DL (70-110)
[2020-08-15] MEDS: QUEtiapine FUMARATE 200 MG TABLET PO SCH (19:53)
[2020-08-15 20:06] LABS: GLUCOMETER DEV NAME(LOC) BV2S.; GLUCOSE,POINT OF CARE 258 MG/DL (70-110)
[2020-08-15] MEDS: ZOLPIDEM TARTRATE 10 MG TABLET PO PRN (20:23)
[2020-08-15 21:58] LABS: GLUCOMETER DEV NAME(LOC) BV2S.; GLUCOSE,POINT OF CARE 210 MG/DL (70-110)
[2020-08-16 00:15] VITALS: BP 114/62
[2020-08-16 06:17] LABS: GLUCOMETER DEV NAME(LOC) BV2S.; GLUCOSE,POINT OF CARE 235 MG/DL (70-110)
[2020-08-16] MEDS: INSULIN LISPRO 100 UNITS/ML SQ PRN ×5 (06:52→20:54)
[2020-08-16 08:30] VITALS: BP 122/67
[2020-08-16] MEDS: OMEGA-3/DHA/EPA/FISH OIL 1,000 MG CAPSULE PO SCH (08:31)
[2020-08-16] MEDS: THIAMINE 100 MG TABLET PO SCH (08:31)
[2020-08-16] MEDS: BusPIRone HCL 5 MG TABLET PO SCH ×3 (08:31→20:31)
[2020-08-16] MEDS: QUEtiapine FUMARATE 25 MG TABLET PO SCH (08:31)
[2020-08-16] MEDS: FOLIC ACID 1 MG TABLET PO SCH (08:31)
[2020-08-16] MEDS: BuPROPion HCL XL 150 MG ER TABLET PO SCH (08:31)
[2020-08-16] MEDS: INSULIN GLARGINE,HUM.REC.ANLOG 100 UNITS/ML SQ SCH ×2 (08:34→17:49)
[2020-08-16 11:30] LABS: GLUCOMETER DEV NAME(LOC) BV2S.; GLUCOSE,POINT OF CARE 301 MG/DL (70-110)
[2020-08-16 16:13] VITALS: BP 110/74
[2020-08-16 16:57] LABS: GLUCOMETER DEV NAME(LOC) BV2S.; GLUCOSE,POINT OF CARE 209 MG/DL (70-110)
[2020-08-16] MEDS: LORazepam 2 MG TABLET PO PRN ×2 (17:39→22:36)
[2020-08-16] MEDS: QUEtiapine FUMARATE 200 MG TABLET PO SCH (20:17)
[2020-08-16] MEDS: ZOLPIDEM TARTRATE 10 MG TABLET PO PRN (20:21)
[2020-08-16 20:59] LABS: GLUCOMETER DEV NAME(LOC) BV2S.; GLUCOSE,POINT OF CARE 155 MG/DL (70-110)
[2020-08-17 06:31] VITALS: BP 108/60
[2020-08-17] MEDS: INSULIN LISPRO 100 UNITS/ML SQ PRN ×3 (06:36→20:33)
[2020-08-17 06:41] LABS: GLUCOMETER DEV NAME(LOC) BV2S.; GLUCOSE,POINT OF CARE 272 MG/DL (70-110)
[2020-08-17 07:00] VITALS: BP 142/86
[2020-08-17] MEDS: LORazepam 2 MG TABLET PO PRN ×3 (07:13→20:10)
[2020-08-17 08:18] VITALS: BP 130/89
[2020-08-17] MEDS: THIAMINE 100 MG TABLET PO SCH (08:48)
[2020-08-17] MEDS: BusPIRone HCL 5 MG TABLET PO SCH ×3 (08:48→20:11)
[2020-08-17] MEDS: BuPROPion HCL XL 150 MG ER TABLET PO SCH (08:48)
[2020-08-17] MEDS: OMEGA-3/DHA/EPA/FISH OIL 1,000 MG CAPSULE PO SCH (08:48)
[2020-08-17] MEDS: QUEtiapine FUMARATE 25 MG TABLET PO SCH (08:48)
[2020-08-17] MEDS: FOLIC ACID 1 MG TABLET PO SCH (08:48)
[2020-08-17] MEDS: INSULIN GLARGINE,HUM.REC.ANLOG 100 UNITS/ML SQ SCH ×2 (08:53→17:36)
[2020-08-17 08:57] LABS: GLUCOMETER DEV NAME(LOC) BV2S.; GLUCOSE,POINT OF CARE 290 MG/DL (70-110)
[2020-08-17 11:29] LABS: GLUCOMETER DEV NAME(LOC) BV2S.; GLUCOSE,POINT OF CARE 383 MG/DL (70-110)
[2020-08-17 16:00] VITALS: BP 114/69
[2020-08-17 19:44] LABS: GLUCOMETER DEV NAME(LOC) BV2S.; GLUCOSE,POINT OF CARE 136 MG/DL (70-110)
[2020-08-17] MEDS: QUEtiapine FUMARATE 200 MG TABLET PO SCH (20:11)
[2020-08-17 20:51] LABS: GLUCOMETER DEV NAME(LOC) BV2S.; GLUCOSE,POINT OF CARE 216 MG/DL (70-110)
[2020-08-17] MEDS: ZOLPIDEM TARTRATE 10 MG TABLET PO PRN (21:35)
[2020-08-18] VITALS (9 sets, daily range): BP systolic 103–155; BP diastolic 71–94
[2020-08-18 06:12] LABS: GLUCOMETER DEV NAME(LOC) BV2S.; GLUCOSE,POINT OF CARE 205 MG/DL (70-110)
[2020-08-18] MEDS: INSULIN LISPRO 100 UNITS/ML SQ PRN ×3 (06:50→20:50)
[2020-08-18 07:41] LABS: COVID AG,FIA SOURCE NASOPHARYNGEAL
[2020-08-18] MEDS: QUEtiapine FUMARATE 25 MG TABLET PO SCH (08:48)
[2020-08-18] MEDS: THIAMINE 100 MG TABLET PO SCH (08:48)
[2020-08-18] MEDS: FOLIC ACID 1 MG TABLET PO SCH (08:48)
[2020-08-18] MEDS: BuPROPion HCL XL 150 MG ER TABLET PO SCH (08:48)
[2020-08-18] MEDS: OMEGA-3/DHA/EPA/FISH OIL 1,000 MG CAPSULE PO SCH (08:48)
[2020-08-18] MEDS: BusPIRone HCL 5 MG TABLET PO SCH ×3 (08:48→20:44)
[2020-08-18] MEDS: INSULIN GLARGINE,HUM.REC.ANLOG 100 UNITS/ML SQ SCH ×2 (08:50→16:35)
[2020-08-18 11:19] LABS: GLUCOMETER DEV NAME(LOC) BV2S.; GLUCOSE,POINT OF CARE 301 MG/DL (70-110)
[2020-08-18] MEDS: LORazepam 2 MG TABLET PO PRN ×2 (12:38→19:22)
[2020-08-18 16:32] LABS: GLUCOMETER DEV NAME(LOC) BV2S.; GLUCOSE,POINT OF CARE 127 MG/DL (70-110)
[2020-08-18 20:26] LABS: GLUCOMETER DEV NAME(LOC) BV2S.; GLUCOSE,POINT OF CARE 372 MG/DL (70-110)
[2020-08-18] MEDS: ZOLPIDEM TARTRATE 10 MG TABLET PO PRN (20:44)
[2020-08-18] MEDS: QUEtiapine FUMARATE 200 MG TABLET PO SCH (20:44)
[2020-08-18] MEDS: TraMADol HCL 50 MG TABLET PO PRN (22:13)
[2020-08-19 06:25] VITALS: BP 109/67
[2020-08-19 06:30] LABS: GLUCOMETER DEV NAME(LOC) BV2S.; GLUCOSE,POINT OF CARE 206 MG/DL (70-110)
[2020-08-19] MEDS: INSULIN LISPRO 100 UNITS/ML SQ PRN ×3 (06:39→20:05)
[2020-08-19 08:25] VITALS: BP 113/60
[2020-08-19] MEDS: THIAMINE 100 MG TABLET PO SCH (08:29)
[2020-08-19] MEDS: BuPROPion HCL XL 150 MG ER TABLET PO SCH (08:29)
[2020-08-19] MEDS: FOLIC ACID 1 MG TABLET PO SCH (08:29)
[2020-08-19] MEDS: OMEGA-3/DHA/EPA/FISH OIL 1,000 MG CAPSULE PO SCH (08:29)
[2020-08-19] MEDS: QUEtiapine FUMARATE 25 MG TABLET PO SCH (08:29)
[2020-08-19] MEDS: BusPIRone HCL 5 MG TABLET PO SCH ×3 (08:29→19:51)
[2020-08-19] MEDS: AmLODIPine BESYLATE 5 MG TABLET PO SCH (08:29)
[2020-08-19] MEDS: INSULIN GLARGINE,HUM.REC.ANLOG 100 UNITS/ML SQ SCH ×2 (08:36→17:06)
[2020-08-19 08:38] LABS: GLUCOMETER DEV NAME(LOC) BV2S.; GLUCOSE,POINT OF CARE 130 MG/DL (70-110)
[2020-08-19 11:07] LABS: GLUCOMETER DEV NAME(LOC) BV2S.; GLUCOSE,POINT OF CARE 73 MG/DL (70-110)
[2020-08-19] MEDS: LORazepam 2 MG TABLET PO PRN (13:42)
[2020-08-19 16:17] VITALS: BP 140/76
[2020-08-19] MEDS: TraMADol HCL 50 MG TABLET PO PRN (16:25)
[2020-08-19 18:08] LABS: GLUCOMETER DEV NAME(LOC) BV2S.; GLUCOSE,POINT OF CARE 363 MG/DL (70-110)
[2020-08-19] MEDS: QUEtiapine FUMARATE 200 MG TABLET PO SCH (19:51)
[2020-08-19 20:19] LABS: GLUCOMETER DEV NAME(LOC) BV2S.; GLUCOSE,POINT OF CARE 186 MG/DL (70-110)
[2020-08-19] MEDS: ZOLPIDEM TARTRATE 10 MG TABLET PO PRN (21:29)
[2020-08-20 06:28] LABS: GLUCOMETER DEV NAME(LOC) BV2S.; GLUCOSE,POINT OF CARE 213 MG/DL (70-110)
[2020-08-20] MEDS: INSULIN LISPRO 100 UNITS/ML SQ PRN (06:53)
[2020-08-20] MEDS ORDERED: BUPR-93 PO (08:03)
[2020-08-20] MEDS ORDERED: INSLAN SQ (08:04)
[2020-08-20 08:29] VITALS: BP 109/64
[2020-08-20] MEDS: BuPROPion HCL XL 150 MG ER TABLET PO SCH (08:38)
[2020-08-20] MEDS: BusPIRone HCL 5 MG TABLET PO SCH (08:38)
[2020-08-20] MEDS: QUEtiapine FUMARATE 25 MG TABLET PO SCH (08:39)
[2020-08-20] MEDS: AmLODIPine BESYLATE 5 MG TABLET PO SCH (08:39)
[2020-08-20] MEDS: FOLIC ACID 1 MG TABLET PO SCH (08:42)
[2020-08-20] MEDS: OMEGA-3/DHA/EPA/FISH OIL 1,000 MG CAPSULE PO SCH (08:42)
[2020-08-20] MEDS: THIAMINE 100 MG TABLET PO SCH (08:42)
== END 2020-08-20 12:54 | disposition home or self-care (01) | DRG 750 ==
LOC: B2S 20:58
DX: F25.1 Schizoaffective disorder, depressive type (principal); E11.9 Type 2 diabetes mellitus without complications; F15.10 Other stimulant abuse, uncomplicated; E78.5 Hyperlipidemia, unspecified; E87.1 Hypo-osmolality and hyponatremia; I10 Essential (primary) hypertension; Z20.822 Contact with and (suspected) exposure to COVID-19; R45.851 Suicidal ideations; Z59.0 Homelessness; Z79.899 Other long term (current) drug therapy; Z28.21 Immunization not carried out because of patient refusal
CPT/HCPCS: 80307; 83036; 84439; 84443; 87426; 90686; J1815

== ENCOUNTER 2021-05-29 07:22 | Inpatient (IN) | payer MEDICAID ==
[~2021-05-29] VITALS: Ht 177.8 cm; Wt 72.1 kg
[~2021-05-29 07:22] MED LIST changes: +BUPR-93 PO; -FLUO-191 PO; -FOLI-130 PO; -MULT-1192 PO; -THIA100T80 PO
[2021-05-29 09:31] LABS: GLUCOMETER DEV NAME(LOC) POC.BV
[2021-05-29 11:00] VITALS: BP 138/83
[2021-05-29] MEDS ORDERED: GLUCAGON,HUMAN RECOMBINANT 1 MG VIAL IM PRN (11:15)
[2021-05-29] MEDS: INSULIN LISPRO 100 UNITS/ML SQ PRN (11:45)
[2021-05-29] MEDS ORDERED: INSULIN LISPRO 100 UNITS/ML SQ ONE (12:00)
[2021-05-29 12:16] LABS: GLUCOMETER DEV NAME(LOC) BV2S.; GLUCOSE,POINT OF CARE 414 MG/DL (70-110)
[2021-05-29 14:11] LABS: GLUCOMETER DEV NAME(LOC) BV2S.; GLUCOSE,POINT OF CARE 257 MG/DL (70-110)
[2021-05-29 16:11] VITALS: BP 127/86
[2021-05-29] MEDS ORDERED: INFLUENZA VIRUS VACCINE QVS 2021-22 (6MO+)/PF 60 MCG/0.5 ML SYRINGE IM. ONE (16:15)
[2021-05-29] MEDS ORDERED: BENZOCAINE/MENTHOL LOZENGE PO PRN (20:15)
[2021-05-29] MEDS ORDERED: BACITRACIN 28 GM OINTMENT TP PRN (20:15)
[2021-05-29] MEDS ORDERED: LOPERAMIDE HCL 2 MG CAPSULE PO PRN (20:15)
[2021-05-29] MEDS ORDERED: MAGNESIUM HYDROXIDE SUSPENSION 30 ML UDCUP PO PRN (20:15)
[2021-05-29] MEDS ORDERED: ACETAMINOPHEN 325 MG TABLET PO PRN (20:15)
[2021-05-29] MEDS ORDERED: CloNIDine HCL 0.1 MG TABLET PO PRN (20:15)
[2021-05-29] MEDS ORDERED: ONDANSETRON HCL 4 MG TABLET PO PRN (20:15)
[2021-05-29] MEDS ORDERED: OMEPRAZOLE 20 MG CAPSULE PO PRN (20:15)
[2021-05-29] MEDS ORDERED: ALBUTEROL SULFATE HFA 90 MCG/PUFF 8 GM INHALER IH PRN (20:15)
[2021-05-29] MEDS ORDERED: PETROLATUM,WHITE 28 GM JELLY TP PRN (20:15)
[2021-05-29] MEDS ORDERED: DOCUSATE SODIUM 100 MG CAPSULE PO PRN (20:15)
[2021-05-29] MEDS ORDERED: IBUPROFEN 600 MG TABLET PO PRN (20:15)
[2021-05-29] MEDS ORDERED: MAG HYDROX/AL HYDROX/SIMETH ES 30 ML SUSPENSION UDCUP PO PRN (20:15)
[2021-05-29] MEDS: QUEtiapine FUMARATE 300 MG TABLET PO SCH (20:23)
[2021-05-29] MEDS: TraZODone HCL 50 MG TABLET PO SCH (20:23)
[2021-05-29] MEDS: ZOLPIDEM TARTRATE 10 MG TABLET PO PRN (20:39)
[2021-05-29 20:55] LABS: GLUCOMETER DEV NAME(LOC) BV2S.; GLUCOSE,POINT OF CARE 230 MG/DL (70-110)
[2021-05-30 06:10] VITALS: BP 116/75
[2021-05-30 08:18] VITALS: BP 117/56
[2021-05-30 11:46] LABS: GLUCOMETER DEV NAME(LOC) POC.BV
[2021-05-30] MEDS: INSULIN LISPRO 100 UNITS/ML SQ PRN ×3 (11:48→21:09)
[2021-05-30] MEDS: LORazepam 2 MG TABLET PO PRN (12:05)
[2021-05-30 14:01] LABS: GLUCOMETER DEV NAME(LOC) BV2S.; GLUCOSE,POINT OF CARE 217 MG/DL (70-110)
[2021-05-30 16:43] VITALS: BP 111/69
[2021-05-30 17:02] LABS: GLUCOMETER DEV NAME(LOC) BV2S.; GLUCOSE,POINT OF CARE 324 MG/DL (70-110)
[2021-05-30] MEDS: QUEtiapine FUMARATE 300 MG TABLET PO SCH (20:27)
[2021-05-30] MEDS: TraZODone HCL 50 MG TABLET PO SCH (20:28)
[2021-05-30 21:02] LABS: GLUCOMETER DEV NAME(LOC) BV2S.; GLUCOSE,POINT OF CARE 334 MG/DL (70-110)
[2021-05-31 06:31] LABS: GLUCOMETER DEV NAME(LOC) BV2S.; GLUCOSE,POINT OF CARE 374 MG/DL (70-110)
[2021-05-31 06:39] VITALS: BP 101/60
[2021-05-31] MEDS: INSULIN LISPRO 100 UNITS/ML SQ PRN ×4 (06:53→20:30)
[2021-05-31 08:19] VITALS: BP 132/84
[2021-05-31] MEDS: LORazepam 2 MG TABLET PO PRN (10:53)
[2021-05-31 11:36] LABS: GLUCOMETER DEV NAME(LOC) BV2S.; GLUCOSE,POINT OF CARE 235 MG/DL (70-110)
[2021-05-31 15:41] LABS: GLUCOMETER DEV NAME(LOC) POC.BV
[2021-05-31 16:16] VITALS: BP 106/61
[2021-05-31 17:11] LABS: GLUCOMETER DEV NAME(LOC) BV2S.; GLUCOSE,POINT OF CARE 367 MG/DL (70-110)
[2021-05-31] MEDS: TraZODone HCL 50 MG TABLET PO SCH (20:17)
[2021-05-31] MEDS: QUEtiapine FUMARATE 300 MG TABLET PO SCH (20:17)
[2021-05-31 20:36] LABS: GLUCOMETER DEV NAME(LOC) BV2S.; GLUCOSE,POINT OF CARE 307 MG/DL (70-110)
[2021-06-01 06:30] VITALS: BP 103/63
[2021-06-01 06:31] LABS: GLUCOMETER DEV NAME(LOC) BV2S.; GLUCOSE,POINT OF CARE 373 MG/DL (70-110)
[2021-06-01] MEDS: INSULIN LISPRO 100 UNITS/ML SQ PRN ×4 (06:42→20:19)
[2021-06-01 10:49] VITALS: BP 105/77
[2021-06-01] MEDS: LORazepam 2 MG TABLET PO PRN (10:53)
[2021-06-01 11:46] LABS: GLUCOMETER DEV NAME(LOC) BV2S.; GLUCOSE,POINT OF CARE 346 MG/DL (70-110)
[2021-06-01 16:18] VITALS: BP 118/85
[2021-06-01 16:56] LABS: GLUCOMETER DEV NAME(LOC) BV2S.; GLUCOSE,POINT OF CARE 384 MG/DL (70-110)
[2021-06-01] MEDS: QUEtiapine FUMARATE 300 MG TABLET PO SCH (20:09)
[2021-06-01] MEDS: TraZODone HCL 50 MG TABLET PO SCH (20:09)
[2021-06-01 20:41] LABS: GLUCOMETER DEV NAME(LOC) BV2S.; GLUCOSE,POINT OF CARE 346 MG/DL (70-110)
[2021-06-02 00:21] VITALS: BP 120/86
[2021-06-02] MEDS ORDERED: INSULIN LISPRO 100 UNITS/ML SQ ONE ×4 (07:00→22:15)
[2021-06-02 07:01] LABS: GLUCOMETER DEV NAME(LOC) BV2S.; GLUCOSE,POINT OF CARE 403 MG/DL (70-110)
[2021-06-02 08:51] VITALS: BP 93/67
[2021-06-02] MEDS: LORazepam 2 MG TABLET PO PRN ×3 (11:28→23:24)
[2021-06-02] MEDS: INSULIN LISPRO 100 UNITS/ML SQ PRN (11:35)
[2021-06-02 11:56] LABS: GLUCOMETER DEV NAME(LOC) BV2S.; GLUCOSE,POINT OF CARE 385 MG/DL (70-110)
[2021-06-02 16:00] VITALS: BP 116/61
[2021-06-02 17:16] LABS: GLUCOMETER DEV NAME(LOC) BV2S.; GLUCOSE,POINT OF CARE 445 MG/DL (70-110)
[2021-06-02] MEDS: TraZODone HCL 50 MG TABLET PO SCH (20:07)
[2021-06-02] MEDS: QUEtiapine FUMARATE 300 MG TABLET PO SCH (20:07)
[2021-06-02 21:36] LABS: GLUCOMETER DEV NAME(LOC) BV2S.; GLUCOSE,POINT OF CARE 528 MG/DL (70-110)
[2021-06-02] MEDS: ZOLPIDEM TARTRATE 10 MG TABLET PO PRN (21:57)
[2021-06-02 22:41] LABS: GLUCOMETER DEV NAME(LOC) BV2S.; GLUCOSE,POINT OF CARE 387 MG/DL (70-110)
[2021-06-02] MEDS: HALOPERIDOL 5 MG TABLET PO PRN (23:24)
[2021-06-03 04:12] VITALS: BP 131/76
[2021-06-03 07:05] LABS: GLUCOMETER DEV NAME(LOC) BV2S.; GLUCOSE,POINT OF CARE 376 MG/DL (70-110)
[2021-06-03] MEDS: INSULIN LISPRO 100 UNITS/ML SQ PRN ×5 (07:09→21:04)
[2021-06-03 09:32] VITALS: BP 116/67
[2021-06-03] MEDS ORDERED: GLUCAGON,HUMAN RECOMBINANT 1 MG VIAL IM PRN (12:15)
[2021-06-03] MEDS: LORazepam 2 MG TABLET PO PRN (12:32)
[2021-06-03] MEDS: HALOPERIDOL 5 MG TABLET PO PRN (12:32)
[2021-06-03 15:30] LABS: GLUCOMETER DEV NAME(LOC) BV2S.; GLUCOSE,POINT OF CARE 417 MG/DL (70-110)
[2021-06-03 16:36] VITALS: BP 104/72
[2021-06-03 16:36] LABS: GLUCOMETER DEV NAME(LOC) BV2S.; GLUCOSE,POINT OF CARE 382 MG/DL (70-110)
[2021-06-03 20:26] LABS: GLUCOMETER DEV NAME(LOC) BV2S.; GLUCOSE,POINT OF CARE 322 MG/DL (70-110)
[2021-06-03] MEDS: TraZODone HCL 50 MG TABLET PO SCH (21:01)
[2021-06-03] MEDS: QUEtiapine FUMARATE 300 MG TABLET PO SCH (21:01)
[2021-06-03] MEDS: ZOLPIDEM TARTRATE 10 MG TABLET PO PRN (22:10)
[2021-06-04 06:36] LABS: GLUCOMETER DEV NAME(LOC) BV2S.; GLUCOSE,POINT OF CARE 502 MG/DL (70-110)
[2021-06-04] MEDS ORDERED: INSULIN LISPRO 100 UNITS/ML SQ ONE ×2 (07:00→16:45)
[2021-06-04] MEDS: LORazepam 2 MG TABLET PO PRN ×2 (08:40→13:23)
[2021-06-04 09:20] VITALS: BP 118/63
[2021-06-04 09:57] LABS: GLUCOMETER DEV NAME(LOC) POC.BV
[2021-06-04] MEDS: INSULIN LISPRO 100 UNITS/ML SQ PRN ×2 (11:08→21:04)
[2021-06-04 11:16] LABS: GLUCOMETER DEV NAME(LOC) BV2S.; GLUCOSE,POINT OF CARE 300 MG/DL (70-110)
[2021-06-04] MEDS: MetFORMIN HCL 500 MG TABLET PO SCH (16:24)
[2021-06-04] MEDS: INSULIN GLARGINE,HUM.REC.ANLOG 100 UNITS/ML SQ SCH (16:29)
[2021-06-04 16:36] LABS: GLUCOMETER DEV NAME(LOC) BV2S.; GLUCOSE,POINT OF CARE 430 MG/DL (70-110)
[2021-06-04 17:36] VITALS: BP 104/60
[2021-06-04] MEDS: QUEtiapine FUMARATE 300 MG TABLET PO SCH (20:37)
[2021-06-04] MEDS: TraZODone HCL 50 MG TABLET PO SCH (20:37)
[2021-06-04] MEDS: ZOLPIDEM TARTRATE 10 MG TABLET PO PRN (20:51)
[2021-06-04 21:01] LABS: GLUCOMETER DEV NAME(LOC) BV2S.; GLUCOSE,POINT OF CARE 270 MG/DL (70-110)
[2021-06-05 05:10] VITALS: BP 106/56
[2021-06-05] MEDS: MetFORMIN HCL 500 MG TABLET PO SCH ×2 (06:09→16:23)
[2021-06-05] MEDS: INSULIN LISPRO 100 UNITS/ML SQ PRN ×4 (06:11→20:44)
[2021-06-05 06:21] LABS: GLUCOMETER DEV NAME(LOC) BV2S.; GLUCOSE,POINT OF CARE 189 MG/DL (70-110)
[2021-06-05] MEDS: OMEGA-3/DHA/EPA/FISH OIL 1,000 MG CAPSULE PO SCH (08:42)
[2021-06-05] MEDS: INSULIN GLARGINE,HUM.REC.ANLOG 100 UNITS/ML SQ SCH ×2 (08:53→16:32)
[2021-06-05 09:08] VITALS: BP 120/66
[2021-06-05 11:16] LABS: GLUCOMETER DEV NAME(LOC) BV2S.; GLUCOSE,POINT OF CARE 347 MG/DL (70-110)
[2021-06-05] MEDS: LORazepam 2 MG TABLET PO PRN ×2 (13:06→17:10)
[2021-06-05 16:13] VITALS: BP 107/64
[2021-06-05 16:42] LABS: GLUCOMETER DEV NAME(LOC) BV2S.; GLUCOSE,POINT OF CARE 279 MG/DL (70-110)
[2021-06-05] MEDS: QUEtiapine FUMARATE 300 MG TABLET PO SCH (20:33)
[2021-06-05] MEDS: TraZODone HCL 50 MG TABLET PO SCH (20:33)
[2021-06-05] MEDS: ZOLPIDEM TARTRATE 10 MG TABLET PO PRN (20:33)
[2021-06-05 20:56] LABS: GLUCOMETER DEV NAME(LOC) BV2S.; GLUCOSE,POINT OF CARE 131 MG/DL (70-110)
[2021-06-06 06:35] VITALS: BP 105/62
[2021-06-06] MEDS: MetFORMIN HCL 500 MG TABLET PO SCH ×2 (06:58→16:35)
[2021-06-06] MEDS: INSULIN GLARGINE,HUM.REC.ANLOG 100 UNITS/ML SQ SCH ×2 (08:03→16:41)
[2021-06-06] MEDS: OMEGA-3/DHA/EPA/FISH OIL 1,000 MG CAPSULE PO SCH (08:04)
[2021-06-06 08:50] VITALS: BP 106/66
[2021-06-06] MEDS: INSULIN LISPRO 100 UNITS/ML SQ PRN ×3 (10:48→20:44)
[2021-06-06 10:51] LABS: GLUCOMETER DEV NAME(LOC) BV2S.; GLUCOSE,POINT OF CARE 127 MG/DL (70-110)
[2021-06-06 10:51] LABS: GLUCOMETER DEV NAME(LOC) BV2S.; GLUCOSE,POINT OF CARE 392 MG/DL (70-110)
[2021-06-06] MEDS: LORazepam 2 MG TABLET PO PRN ×2 (10:57→17:36)
[2021-06-06] MEDS: HALOPERIDOL 5 MG TABLET PO PRN (10:57)
[2021-06-06 16:46] LABS: GLUCOMETER DEV NAME(LOC) BV2S.; GLUCOSE,POINT OF CARE 184 MG/DL (70-110)
[2021-06-06 17:56] VITALS: BP 117/63
[2021-06-06] MEDS: TraZODone HCL 50 MG TABLET PO SCH (20:32)
[2021-06-06] MEDS: QUEtiapine FUMARATE 300 MG TABLET PO SCH (20:32)
[2021-06-06] MEDS: ZOLPIDEM TARTRATE 10 MG TABLET PO PRN (20:32)
[2021-06-06 20:56] LABS: GLUCOMETER DEV NAME(LOC) BV2S.; GLUCOSE,POINT OF CARE 134 MG/DL (70-110)
[2021-06-06 23:00] LABS: GLUCOMETER DEV NAME(LOC) BV2S.; GLUCOSE,POINT OF CARE 54 MG/DL (70-110)
[2021-06-06 23:16] LABS: GLUCOMETER DEV NAME(LOC) BV2S.; GLUCOSE,POINT OF CARE 103 MG/DL (70-110)
[2021-06-07 04:29] VITALS: BP 112/67
[2021-06-07 06:35] LABS: GLUCOMETER DEV NAME(LOC) BV2S.; GLUCOSE,POINT OF CARE 146 MG/DL (70-110)
[2021-06-07] MEDS: MetFORMIN HCL 500 MG TABLET PO SCH ×2 (07:06→16:29)
[2021-06-07] MEDS: INSULIN LISPRO 100 UNITS/ML SQ PRN ×2 (07:07→20:44)
[2021-06-07] MEDS: OMEGA-3/DHA/EPA/FISH OIL 1,000 MG CAPSULE PO SCH (08:20)
[2021-06-07] MEDS: INSULIN GLARGINE,HUM.REC.ANLOG 100 UNITS/ML SQ SCH ×2 (08:24→17:13)
[2021-06-07 08:36] LABS: GLUCOMETER DEV NAME(LOC) BV2S.; GLUCOSE,POINT OF CARE 249 MG/DL (70-110)
[2021-06-07 09:16] VITALS: BP 121/67
[2021-06-07] MEDS ORDERED: INSULIN LISPRO 100 UNITS/ML SQ ONE ×2 (11:30→12:45)
[2021-06-07 11:31] LABS: GLUCOMETER DEV NAME(LOC) BV2S.; GLUCOSE,POINT OF CARE 473 MG/DL (70-110)
[2021-06-07] MEDS: LORazepam 2 MG TABLET PO PRN ×2 (11:37→18:14)
[2021-06-07] MEDS ORDERED: INSULIN LISPRO 100 UNITS/ML SQ STA (12:28)
[2021-06-07 12:41] LABS: GLUCOMETER DEV NAME(LOC) BV2S.; GLUCOSE,POINT OF CARE 308 MG/DL (70-110)
[2021-06-07 14:21] LABS: GLUCOMETER DEV NAME(LOC) BV2S.; GLUCOSE,POINT OF CARE 62 MG/DL (70-110)
[2021-06-07] MEDS ORDERED: DEXTROSE 40% LEMON 37.5 GM/TUBE GEL [15 GM GLUCOSE] PO ONE (14:45)
[2021-06-07 14:51] LABS: GLUCOMETER DEV NAME(LOC) BV2S.; GLUCOSE,POINT OF CARE 42 MG/DL (70-110)
[2021-06-07 15:11] LABS: GLUCOMETER DEV NAME(LOC) BV2S.; GLUCOSE,POINT OF CARE 95 MG/DL (70-110)
[2021-06-07 16:35] LABS: GLUCOMETER DEV NAME(LOC) BV2S.; GLUCOSE,POINT OF CARE 130 MG/DL (70-110)
[2021-06-07 16:51] VITALS: BP 102/68
[2021-06-07 18:26] LABS: GLUCOMETER DEV NAME(LOC) BV2S.; GLUCOSE,POINT OF CARE 229 MG/DL (70-110)
[2021-06-07 19:26] LABS: GLUCOMETER DEV NAME(LOC) BV2S.; GLUCOSE,POINT OF CARE 198 MG/DL (70-110)
[2021-06-07] MEDS: TraZODone HCL 50 MG TABLET PO SCH (20:36)
[2021-06-07] MEDS: QUEtiapine FUMARATE 300 MG TABLET PO SCH (20:36)
[2021-06-07 20:45] LABS: GLUCOMETER DEV NAME(LOC) BV2S.; GLUCOSE,POINT OF CARE 222 MG/DL (70-110)
[2021-06-07] MEDS: ZOLPIDEM TARTRATE 10 MG TABLET PO PRN (20:45)
[2021-06-08 02:06] VITALS: BP 107/62
[2021-06-08 06:46] LABS: GLUCOMETER DEV NAME(LOC) BV2S.; GLUCOSE,POINT OF CARE 236 MG/DL (70-110)
[2021-06-08] MEDS: MetFORMIN HCL 500 MG TABLET PO SCH ×2 (06:58→16:26)
[2021-06-08] MEDS: INSULIN LISPRO 100 UNITS/ML SQ PRN ×4 (07:00→20:16)
[2021-06-08 08:03] VITALS: BP 108/54
[2021-06-08] MEDS: OMEGA-3/DHA/EPA/FISH OIL 1,000 MG CAPSULE PO SCH (08:51)
[2021-06-08] MEDS: INSULIN GLARGINE,HUM.REC.ANLOG 100 UNITS/ML SQ SCH ×2 (08:55→16:29)
[2021-06-08 09:11] LABS: GLUCOMETER DEV NAME(LOC) BV2S.; GLUCOSE,POINT OF CARE 226 MG/DL (70-110)
[2021-06-08 09:55] VITALS: BP 105/62
[2021-06-08] MEDS: LORazepam 2 MG TABLET PO PRN ×2 (09:57→16:27)
[2021-06-08] MEDS: HALOPERIDOL 5 MG TABLET PO PRN (10:59)
[2021-06-08 11:36] LABS: GLUCOMETER DEV NAME(LOC) BV2S.; GLUCOSE,POINT OF CARE 308 MG/DL (70-110)
[2021-06-08 16:21] LABS: GLUCOMETER DEV NAME(LOC) BV2S.; GLUCOSE,POINT OF CARE 146 MG/DL (70-110)
[2021-06-08 16:25] VITALS: BP 128/72
[2021-06-08 20:21] LABS: GLUCOMETER DEV NAME(LOC) BV2S.; GLUCOSE,POINT OF CARE 146 MG/DL (70-110)
[2021-06-08] MEDS: TraZODone HCL 50 MG TABLET PO SCH (20:28)
[2021-06-08] MEDS: QUEtiapine FUMARATE 300 MG TABLET PO SCH (20:29)
[2021-06-08] MEDS: ZOLPIDEM TARTRATE 10 MG TABLET PO PRN (20:44)
[2021-06-09] MEDS: LORazepam 2 MG TABLET PO PRN (01:06)
[2021-06-09 01:07] VITALS: BP 112/84
[2021-06-09 06:41] LABS: GLUCOMETER DEV NAME(LOC) BV2S.; GLUCOSE,POINT OF CARE 147 MG/DL (70-110)
[2021-06-09] MEDS: MetFORMIN HCL 500 MG TABLET PO SCH (06:56)
[2021-06-09] MEDS: INSULIN LISPRO 100 UNITS/ML SQ PRN ×2 (06:58→11:33)
[2021-06-09 08:09] VITALS: BP 106/59
[2021-06-09] MEDS: INSULIN GLARGINE,HUM.REC.ANLOG 100 UNITS/ML SQ SCH (09:04)
[2021-06-09] MEDS: OMEGA-3/DHA/EPA/FISH OIL 1,000 MG CAPSULE PO SCH (09:04)
[2021-06-09 09:17] LABS: GLUCOMETER DEV NAME(LOC) BV2S.; GLUCOSE,POINT OF CARE 224 MG/DL (70-110)
[2021-06-09 09:26] VITALS: BP 121/61
[2021-06-09] MEDS ORDERED: METF-1211 PO ×2 (09:30→09:54)
[2021-06-09] MEDS ORDERED: TRAZ-252 PO (09:51)
[2021-06-09 11:41] LABS: GLUCOMETER DEV NAME(LOC) BV2S.; GLUCOSE,POINT OF CARE 357 MG/DL (70-110)
== END 2021-06-09 12:00 | disposition home or self-care (01) | DRG 750 ==
LOC: B2S 11:20
PROVIDERS: ADMIT Psychiatry & Neurology Psychiatry; ATTEND Psychiatry & Neurology Psychiatry
DX: F20.9 Schizophrenia, unspecified (principal); E11.65 Type 2 diabetes mellitus with hyperglycemia; F32.A Depression, unspecified; F41.9 Anxiety disorder, unspecified; Z20.822 Contact with and (suspected) exposure to COVID-19; G47.00 Insomnia, unspecified; I10 Essential (primary) hypertension; K59.00 Constipation, unspecified; M54.50 Low back pain, unspecified; R51.9 Headache, unspecified; Z79.899 Other long term (current) drug therapy
CPT/HCPCS: 82962; J1610; J1815

== ENCOUNTER 2021-09-11 20:07 | Inpatient (IN) | payer MEDICAID ==
[~2021-09-11] VITALS: Ht 177.8 cm; Wt 85.7 kg
[~2021-09-11 20:07] MED LIST changes: -BUPR-93 PO; -BUSP5TAB20 PO; +METF-1211 PO; +OMEG-108 PO; -OMEG-135 PO; -QUET25TA PO; +TRAZ-252 PO
[2021-09-11] MEDS ORDERED: -PHARMACY VACCINE NOTE- MISC ONE (20:45)
[2021-09-11 20:56] LABS: GLUCOMETER DEV NAME(LOC) POC.BV
[2021-09-11] MEDS ORDERED: INSULIN GLARGINE,HUM.REC.ANLOG 100 UNITS/ML SQ SCH (22:15)
[2021-09-11] MEDS ORDERED: GLUCAGON,HUMAN RECOMBINANT 1 MG VIAL IM PRN (22:15)
[2021-09-11 22:27] LABS: GLUCOMETER DEV NAME(LOC) BV2S.; GLUCOSE,POINT OF CARE 432 MG/DL (70-110)
[2021-09-11] MEDS: INSULIN LISPRO 100 UNITS/ML SQ PRN (22:32)
[2021-09-11 23:31] LABS: GLUCOMETER DEV NAME(LOC) BV2S.; GLUCOSE,POINT OF CARE 471 MG/DL (70-110)
[2021-09-12 00:08] VITALS: BP 149/88
[2021-09-12 01:16] LABS: GLUCOMETER DEV NAME(LOC) BV2S.; GLUCOSE,POINT OF CARE 327 MG/DL (70-110)
[2021-09-12 06:11] LABS: GLUCOMETER DEV NAME(LOC) BV2S.; GLUCOSE,POINT OF CARE 193 MG/DL (70-110)
[2021-09-12] MEDS: INSULIN LISPRO 100 UNITS/ML SQ PRN ×4 (06:42→20:34)
[2021-09-12 07:28] LABS: BASOPHILS % (AUTO) 2.4 % (0.0-2.0); EOSINOPHILS % (AUTO) 3.9 % (1.0-6.0); HEMATOCRIT 37.4 % (41-53); HEMOGLOBIN 12.5 g/dL (13.5-17.5); LYMPHOCYTES % (AUTO) 36.5 % (22.0-44.0); MEAN CORPUSCULAR HEMOGLOBIN 26.2 pg (26.0-34.0); MEAN CORPUSCULAR HGB CONC 33.4 G/dL (31.0-37.0); MEAN CORPUSCULAR VOLUME 78 fL (80-100); MONOCYTES # (AUTO) 0.5 K/uL (0.1-1.0); MONOCYTES % (AUTO) 9.3 % (2.0-9.0); NEUTROPHILS # (AUTO) 2.6 K/uL (1.8-7.7); NEUTROPHILS % (AUTO) 47.9 % (40.0-70.0); PLATELET COUNT (AUTO) 302 K/uL (150-450); RED BLOOD CELL COUNT(AUTO) 4.77 MIL/uL (4.50-5.90); RED CELL DISTRIBUTION WIDTH 16.7 % (11.5-14.5)
[2021-09-12 07:32] LABS: HEMOGLOBIN A1C 9.5 % (3.8-5.6)
[2021-09-12 07:52] LABS: ALANINE AMINOTRANSFERASE 33 U/L (12-78); ALBUMIN 3.4 g/dL (3.4-5.0); ALKALINE PHOSPHATASE 103 U/L (46-116); ANION GAP 10 mmol/L (8-16); ASPARTATE AMINOTRANSFERASE 19 U/L (15-37); BILIRUBIN,TOTAL 0.8 mg/dL (0.1-1.0); CARBON DIOXIDE 28 mmol/L (22-29); CHLORIDE 101 mmol/L (98-107); CHOL/HDL RATIO 4.3 (4.2-7.3); CHOLESTEROL 192 mg/dL (131-200); FREE T4 (FREE THYROXINE) 1.44 ng/dL (0.76-1.46); GLOMERULAR FILTR. RATE CALC > 60 mL/min (>60); GLUCOSE,RANDOM 197 mg/dL (70-110); HDL CHOLESTEROL 45 mg/dL (40-60); LDL CHOL (CALC.) 108 mg/dL (0-130); POTASSIUM 3.5 mmol/L (3.5-5.1); SODIUM SERUM 139 mmol/L (136-145); THYROID STIMULATING HORMONE 2.11 uIU/mL (0.36-3.74); TOTAL PROTEIN, SERUM 6.7 g/dL (6.4-8.2); TRIGLYCERIDES 196 mg/dL (15-150); UREA NITROGEN, BLOOD 13 mg/dL (7-18)
[2021-09-12 08:18] VITALS: BP 124/54
[2021-09-12] MEDS: LORazepam 2 MG TABLET PO PRN ×2 (09:46→18:27)
[2021-09-12] MEDS ORDERED: LOPERAMIDE HCL 2 MG CAPSULE PO PRN (13:30)
[2021-09-12] MEDS ORDERED: DEXTROSE 50%-WATER 25 GM/50 ML SYRINGE IVP PRN (13:30)
[2021-09-12] MEDS ORDERED: MAG HYDROX/AL HYDROX/SIMETH ES 30 ML SUSPENSION UDCUP PO PRN (13:30)
[2021-09-12] MEDS ORDERED: IBUPROFEN 400 MG TABLET PO PRN (13:30)
[2021-09-12] MEDS ORDERED: DOCUSATE SODIUM 100 MG CAPSULE PO PRN (13:30)
[2021-09-12] MEDS ORDERED: PETROLATUM,WHITE 28 GM JELLY TP PRN (13:30)
[2021-09-12] MEDS ORDERED: NICOTINE 14 MG/24 HOUR PATCH TD PRN (13:30)
[2021-09-12] MEDS ORDERED: ACETAMINOPHEN 325 MG TABLET PO PRN (13:30)
[2021-09-12] MEDS ORDERED: GuaiFENesin/D-METHORPHAN [SUGAR-FREE] 200-20MG/10 ML SYRUP UDCUP PO PRN (13:30)
[2021-09-12] MEDS ORDERED: ONDANSETRON HCL 4 MG TABLET PO PRN (13:30)
[2021-09-12] MEDS ORDERED: INSULIN LISPRO 100 UNITS/ML SQ PRN (13:30)
[2021-09-12] MEDS ORDERED: MAGNESIUM HYDROXIDE SUSPENSION 30 ML UDCUP PO PRN (13:30)
[2021-09-12] MEDS ORDERED: CloNIDine HCL 0.1 MG TABLET PO PRN (13:30)
[2021-09-12] MEDS ORDERED: ALBUTEROL SULFATE HFA 90 MCG/PUFF 8 GM INHALER IH PRN (13:30)
[2021-09-12] MEDS ORDERED: METF-1211 PO (13:31)
[2021-09-12] MEDS: MetFORMIN HCL 500 MG TABLET PO SCH (16:00)
[2021-09-12] MEDS: INSULIN GLARGINE,HUM.REC.ANLOG 100 UNITS/ML SQ SCH (16:06)
[2021-09-12 16:10] VITALS: BP 128/92
[2021-09-12 16:21] LABS: GLUCOMETER DEV NAME(LOC) BV2S.; GLUCOSE,POINT OF CARE 385 MG/DL (70-110)
[2021-09-12 20:41] LABS: GLUCOMETER DEV NAME(LOC) BV2S.; GLUCOSE,POINT OF CARE 393 MG/DL (70-110)
[2021-09-12] MEDS: QUEtiapine FUMARATE 200 MG TABLET PO SCH (21:00)
[2021-09-12] MEDS: TraZODone HCL 50 MG TABLET PO SCH (21:00)
[2021-09-12] MEDS: ZOLPIDEM TARTRATE 10 MG TABLET PO PRN (22:21)
[2021-09-13] VITALS (10 sets, daily range): BP systolic 117–138; BP diastolic 63–83
[2021-09-13 06:21] LABS: GLUCOMETER DEV NAME(LOC) BV2S.; GLUCOSE,POINT OF CARE 211 MG/DL (70-110)
[2021-09-13] MEDS: MetFORMIN HCL 500 MG TABLET PO SCH ×2 (06:52→17:12)
[2021-09-13] MEDS: INSULIN LISPRO 100 UNITS/ML SQ PRN ×4 (06:53→20:35)
[2021-09-13 08:51] LABS: GLUCOMETER DEV NAME(LOC) BV2S.; GLUCOSE,POINT OF CARE 170 MG/DL (70-110)
[2021-09-13] MEDS: INSULIN GLARGINE,HUM.REC.ANLOG 100 UNITS/ML SQ SCH ×2 (08:51→16:30)
[2021-09-13] MEDS: BACITRACIN 28 GM OINTMENT TP SCH ×2 (08:52→17:12)
[2021-09-13] MEDS: OMEGA-3/DHA/EPA/FISH OIL 1,000 MG CAPSULE PO SCH (08:53)
[2021-09-13 11:21] LABS: GLUCOMETER DEV NAME(LOC) BV2S.; GLUCOSE,POINT OF CARE 323 MG/DL (70-110)
[2021-09-13 16:30] LABS: GLUCOMETER DEV NAME(LOC) BV2S.; GLUCOSE,POINT OF CARE 344 MG/DL (70-110)
[2021-09-13] MEDS: HALOPERIDOL 5 MG TABLET PO PRN (17:37)
[2021-09-13] MEDS: QUEtiapine FUMARATE 200 MG TABLET PO SCH (20:29)
[2021-09-13] MEDS: TraZODone HCL 50 MG TABLET PO SCH (20:29)
[2021-09-13 20:35] LABS: GLUCOMETER DEV NAME(LOC) BV2S.; GLUCOSE,POINT OF CARE 248 MG/DL (70-110)
[2021-09-14 01:24] VITALS: BP 101/61
[2021-09-14 06:16] LABS: GLUCOMETER DEV NAME(LOC) BV2S.; GLUCOSE,POINT OF CARE 131 MG/DL (70-110)
[2021-09-14] MEDS: MetFORMIN HCL 500 MG TABLET PO SCH ×2 (06:48→16:54)
[2021-09-14 06:49] VITALS: BP 110/66
[2021-09-14 07:24] LABS: APPEARANCE,URINE CLEAR (CLEAR); BILIRUBIN,URINE NEGATIVE (NEGATIVE); GLUCOSE, URINE (UA) >=1000 mg/dL (NEGATIVE); KETONES,URINE NEGATIVE (NEGATIVE); LEUKOCYTE ESTERASE ,URINE NEGATIVE (NEGATIVE); NITRATE,URINE NEGATIVE (NEGATIVE); OCCULT BLOOD,URINE NEGATIVE (NEGATIVE); PROTEIN,URINE NEGATIVE (NEGATIVE)
[2021-09-14 07:30] LABS: AMPHET/METH SCREEN,URINE POSITIVE (NEGATIVE); BARBITURATE SCREEN, URINE NEGATIVE (NEGATIVE); BENZODIAZEPINES SCREEN,URINE NEGATIVE (NEGATIVE); CANNABINOID SCREEN,URINE NEGATIVE (NEGATIVE); COCAINE SCREEN,URINE NEGATIVE (NEGATIVE); METHADONE SCREEN, URINE NEGATIVE (NEGATIVE); OPIATE SCREEN,URINE NEGATIVE (NEGATIVE); PHENCYCLIDINE SCREEN,URINE NEGATIVE (NEGATIVE)
[2021-09-14 08:08] LABS: BACTERIA,URINE None Seen /HPF (None Seen); RBC,URINE None Seen /HPF (0-2); WBC,URINE None Seen /HPF (0-5)
[2021-09-14 08:27] VITALS: BP 109/62
[2021-09-14] MEDS: OMEGA-3/DHA/EPA/FISH OIL 1,000 MG CAPSULE PO SCH (08:47)
[2021-09-14] MEDS: BACITRACIN 28 GM OINTMENT TP SCH ×2 (08:49→17:01)
[2021-09-14] MEDS: INSULIN GLARGINE,HUM.REC.ANLOG 100 UNITS/ML SQ SCH ×2 (08:57→16:57)
[2021-09-14 09:11] LABS: GLUCOMETER DEV NAME(LOC) BV2S.; GLUCOSE,POINT OF CARE 324 MG/DL (70-110)
[2021-09-14 10:54] VITALS: BP 109/62
[2021-09-14] MEDS: INSULIN LISPRO 100 UNITS/ML SQ PRN ×3 (11:31→20:58)
[2021-09-14 11:41] LABS: GLUCOMETER DEV NAME(LOC) BV2S.; GLUCOSE,POINT OF CARE 337 MG/DL (70-110)
[2021-09-14 16:07] VITALS: BP 120/75
[2021-09-14 16:46] LABS: GLUCOMETER DEV NAME(LOC) BV2S.; GLUCOSE,POINT OF CARE 226 MG/DL (70-110)
[2021-09-14 19:40] VITALS: BP 120/75
[2021-09-14] MEDS: QUEtiapine FUMARATE 200 MG TABLET PO SCH (20:13)
[2021-09-14] MEDS: TraZODone HCL 50 MG TABLET PO SCH (20:13)
[2021-09-14 21:06] LABS: GLUCOMETER DEV NAME(LOC) BV2S.; GLUCOSE,POINT OF CARE 369 MG/DL (70-110)
[2021-09-15 00:36] VITALS: BP 114/60
[2021-09-15 01:01] VITALS: BP 114/60
[2021-09-15] MEDS: MetFORMIN HCL 500 MG TABLET PO SCH ×2 (06:59→16:02)
[2021-09-15] MEDS: INSULIN LISPRO 100 UNITS/ML SQ PRN ×4 (07:01→20:11)
[2021-09-15 07:05] LABS: GLUCOMETER DEV NAME(LOC) BV2S.; GLUCOSE,POINT OF CARE 196 MG/DL (70-110)
[2021-09-15 08:02] VITALS: BP 135/69
[2021-09-15] MEDS: BACITRACIN 28 GM OINTMENT TP SCH ×2 (08:08→16:03)
[2021-09-15] MEDS: OMEGA-3/DHA/EPA/FISH OIL 1,000 MG CAPSULE PO SCH (08:09)
[2021-09-15] MEDS: INSULIN GLARGINE,HUM.REC.ANLOG 100 UNITS/ML SQ SCH ×2 (08:54→16:08)
[2021-09-15] MEDS: LORazepam 2 MG TABLET PO PRN (12:08)
[2021-09-15 12:56] VITALS: BP 135/69
[2021-09-15 14:01] LABS: GLUCOMETER DEV NAME(LOC) BV2S.; GLUCOSE,POINT OF CARE 198 MG/DL (70-110)
[2021-09-15 16:31] LABS: GLUCOMETER DEV NAME(LOC) BV2S.; GLUCOSE,POINT OF CARE 279 MG/DL (70-110)
[2021-09-15] MEDS: TraZODone HCL 50 MG TABLET PO SCH (20:10)
[2021-09-15] MEDS: QUEtiapine FUMARATE 200 MG TABLET PO SCH (20:10)
[2021-09-15 20:51] LABS: GLUCOMETER DEV NAME(LOC) BV2S.; GLUCOSE,POINT OF CARE 274 MG/DL (70-110)
[2021-09-16 00:07] VITALS: BP 122/72
[2021-09-16 06:21] LABS: GLUCOMETER DEV NAME(LOC) BV2S.; GLUCOSE,POINT OF CARE 125 MG/DL (70-110)
[2021-09-16] MEDS: MetFORMIN HCL 500 MG TABLET PO SCH ×2 (06:36→16:11)
[2021-09-16] MEDS: BACITRACIN 28 GM OINTMENT TP SCH ×2 (08:05→16:17)
[2021-09-16] MEDS: OMEGA-3/DHA/EPA/FISH OIL 1,000 MG CAPSULE PO SCH (08:05)
[2021-09-16 08:07] VITALS: BP 102/63
[2021-09-16] MEDS: INSULIN GLARGINE,HUM.REC.ANLOG 100 UNITS/ML SQ SCH ×2 (08:58→16:24)
[2021-09-16 09:24] VITALS: BP 102/63
[2021-09-16] MEDS: INSULIN LISPRO 100 UNITS/ML SQ PRN ×3 (11:20→20:37)
[2021-09-16 15:01] LABS: GLUCOMETER DEV NAME(LOC) BV2S.; GLUCOSE,POINT OF CARE 272 MG/DL (70-110)
[2021-09-16 16:10] VITALS: BP 118/68
[2021-09-16 16:46] LABS: GLUCOMETER DEV NAME(LOC) BV2S.; GLUCOSE,POINT OF CARE 194 MG/DL (70-110)
[2021-09-16] MEDS: TraZODone HCL 50 MG TABLET PO SCH (20:16)
[2021-09-16] MEDS: QUEtiapine FUMARATE 200 MG TABLET PO SCH (20:16)
[2021-09-16 20:51] LABS: GLUCOMETER DEV NAME(LOC) BV2S.; GLUCOSE,POINT OF CARE 181 MG/DL (70-110)
[2021-09-16] MEDS: ZOLPIDEM TARTRATE 10 MG TABLET PO PRN (21:38)
[2021-09-17 01:30] VITALS: BP 103/62
[2021-09-17 06:16] LABS: GLUCOMETER DEV NAME(LOC) BV2S.; GLUCOSE,POINT OF CARE 205 MG/DL (70-110)
[2021-09-17] MEDS: MetFORMIN HCL 500 MG TABLET PO SCH ×2 (06:35→17:01)
[2021-09-17] MEDS: INSULIN LISPRO 100 UNITS/ML SQ PRN ×4 (06:36→20:46)
[2021-09-17 08:13] VITALS: BP 126/71
[2021-09-17] MEDS: OMEGA-3/DHA/EPA/FISH OIL 1,000 MG CAPSULE PO SCH (08:46)
[2021-09-17] MEDS: INSULIN GLARGINE,HUM.REC.ANLOG 100 UNITS/ML SQ SCH ×2 (08:51→17:32)
[2021-09-17] MEDS: BACITRACIN 28 GM OINTMENT TP SCH ×2 (08:52→17:32)
[2021-09-17] MEDS: LORazepam 2 MG TABLET PO PRN (10:05)
[2021-09-17] MEDS: FLUoxetine HCL 20 MG CAPSULE PO SCH (10:53)
[2021-09-17 11:26] LABS: GLUCOMETER DEV NAME(LOC) BV2S.; GLUCOSE,POINT OF CARE 200 MG/DL (70-110)
[2021-09-17 16:07] VITALS: BP 120/70
[2021-09-17 16:51] LABS: GLUCOMETER DEV NAME(LOC) BV2S.; GLUCOSE,POINT OF CARE 279 MG/DL (70-110)
[2021-09-17] MEDS: QUEtiapine FUMARATE 200 MG TABLET PO SCH (20:52)
[2021-09-17] MEDS: TraZODone HCL 50 MG TABLET PO SCH (20:52)
[2021-09-17 20:56] LABS: GLUCOMETER DEV NAME(LOC) BV2S.; GLUCOSE,POINT OF CARE 385 MG/DL (70-110)
[2021-09-18 00:27] VITALS: BP 109/67
[2021-09-18] MEDS: MetFORMIN HCL 500 MG TABLET PO SCH ×2 (06:44→16:59)
[2021-09-18] MEDS: INSULIN LISPRO 100 UNITS/ML SQ PRN ×2 (06:45→17:07)
[2021-09-18 06:56] LABS: GLUCOMETER DEV NAME(LOC) BV2S.; GLUCOSE,POINT OF CARE 169 MG/DL (70-110)
[2021-09-18 08:51] VITALS: BP 129/65
[2021-09-18] MEDS: OMEGA-3/DHA/EPA/FISH OIL 1,000 MG CAPSULE PO SCH (08:54)
[2021-09-18] MEDS: MULTIVITAMINS WITH MINERALS, THERAPEUTIC TABLET PO SCH (08:54)
[2021-09-18] MEDS: THIAMINE 100 MG TABLET PO SCH (08:54)
[2021-09-18] MEDS: BACITRACIN 28 GM OINTMENT TP SCH ×2 (08:55→17:02)
[2021-09-18] MEDS: FOLIC ACID 1 MG TABLET PO SCH (08:55)
[2021-09-18] MEDS: FLUoxetine HCL 20 MG CAPSULE PO SCH (08:55)
[2021-09-18] MEDS: INSULIN GLARGINE,HUM.REC.ANLOG 100 UNITS/ML SQ SCH ×2 (09:05→17:05)
[2021-09-18 09:16] LABS: GLUCOMETER DEV NAME(LOC) BV2S.; GLUCOSE,POINT OF CARE 186 MG/DL (70-110)
[2021-09-18 11:26] LABS: GLUCOMETER DEV NAME(LOC) POC.BV
[2021-09-18 11:41] LABS: GLUCOMETER DEV NAME(LOC) BV2S.; GLUCOSE,POINT OF CARE 117 MG/DL (70-110)
[2021-09-18 13:38] LABS: GLUCOMETER DEV NAME(LOC) POC.BV
[2021-09-18] MEDS: LORazepam 2 MG TABLET PO PRN (13:41)
[2021-09-18 16:03] VITALS: BP 114/68
[2021-09-18 16:46] LABS: GLUCOMETER DEV NAME(LOC) BV2S.; GLUCOSE,POINT OF CARE 172 MG/DL (70-110)
[2021-09-18] MEDS: QUEtiapine FUMARATE 200 MG TABLET PO SCH (20:24)
[2021-09-18] MEDS: TraZODone HCL 50 MG TABLET PO SCH (20:24)
[2021-09-18] MEDS: ZOLPIDEM TARTRATE 10 MG TABLET PO PRN (20:54)
[2021-09-18 21:01] LABS: GLUCOMETER DEV NAME(LOC) BV2S.; GLUCOSE,POINT OF CARE 138 MG/DL (70-110)
[2021-09-19 01:13] VITALS: BP 117/69
[2021-09-19 06:21] LABS: GLUCOMETER DEV NAME(LOC) BV2S.; GLUCOSE,POINT OF CARE 190 MG/DL (70-110)
[2021-09-19] MEDS: MetFORMIN HCL 500 MG TABLET PO SCH ×2 (06:49→16:57)
[2021-09-19] MEDS: INSULIN LISPRO 100 UNITS/ML SQ PRN ×4 (06:51→20:34)
[2021-09-19] MEDS: OMEGA-3/DHA/EPA/FISH OIL 1,000 MG CAPSULE PO SCH (08:25)
[2021-09-19] MEDS: FOLIC ACID 1 MG TABLET PO SCH (08:25)
[2021-09-19] MEDS: MULTIVITAMINS WITH MINERALS, THERAPEUTIC TABLET PO SCH (08:25)
[2021-09-19] MEDS: FLUoxetine HCL 20 MG CAPSULE PO SCH (08:25)
[2021-09-19] MEDS: THIAMINE 100 MG TABLET PO SCH (08:25)
[2021-09-19 08:29] VITALS: BP 110/62
[2021-09-19] MEDS: INSULIN GLARGINE,HUM.REC.ANLOG 100 UNITS/ML SQ SCH ×2 (08:32→17:00)
[2021-09-19] MEDS: BACITRACIN 28 GM OINTMENT TP SCH ×2 (08:33→16:57)
[2021-09-19 12:12] LABS: GLUCOMETER DEV NAME(LOC) BV2S.; GLUCOSE,POINT OF CARE 311 MG/DL (70-110)
[2021-09-19] MEDS: LORazepam 2 MG TABLET PO PRN (12:24)
[2021-09-19 16:25] VITALS: BP 112/73
[2021-09-19 17:21] LABS: GLUCOMETER DEV NAME(LOC) BV2S.; GLUCOSE,POINT OF CARE 214 MG/DL (70-110)
[2021-09-19] MEDS: QUEtiapine FUMARATE 200 MG TABLET PO SCH (20:24)
[2021-09-19] MEDS: TraZODone HCL 50 MG TABLET PO SCH (20:24)
[2021-09-19 21:11] LABS: GLUCOMETER DEV NAME(LOC) BV2S.; GLUCOSE,POINT OF CARE 281 MG/DL (70-110)
[2021-09-20 01:12] VITALS: BP 110/68
[2021-09-20 06:26] LABS: GLUCOMETER DEV NAME(LOC) BV2S.; GLUCOSE,POINT OF CARE 244 MG/DL (70-110)
[2021-09-20] MEDS: MetFORMIN HCL 500 MG TABLET PO SCH ×2 (07:00→16:35)
[2021-09-20] MEDS: INSULIN LISPRO 100 UNITS/ML SQ PRN ×4 (07:02→20:27)
[2021-09-20] MEDS: THIAMINE 100 MG TABLET PO SCH (08:32)
[2021-09-20] MEDS: OMEGA-3/DHA/EPA/FISH OIL 1,000 MG CAPSULE PO SCH (08:32)
[2021-09-20] MEDS: FOLIC ACID 1 MG TABLET PO SCH (08:32)
[2021-09-20] MEDS: MULTIVITAMINS WITH MINERALS, THERAPEUTIC TABLET PO SCH (08:32)
[2021-09-20] MEDS: FLUoxetine HCL 20 MG CAPSULE PO SCH (08:32)
[2021-09-20] MEDS: INSULIN GLARGINE,HUM.REC.ANLOG 100 UNITS/ML SQ SCH ×2 (08:38→16:44)
[2021-09-20 08:39] VITALS: BP 112/62
[2021-09-20] MEDS: BACITRACIN 28 GM OINTMENT TP SCH ×2 (08:40→16:44)
[2021-09-20] MEDS: LORazepam 2 MG TABLET PO PRN (11:14)
[2021-09-20 11:52] LABS: GLUCOMETER DEV NAME(LOC) BV2S.; GLUCOSE,POINT OF CARE 368 MG/DL (70-110)
[2021-09-20 16:31] LABS: GLUCOMETER DEV NAME(LOC) BV2S.; GLUCOSE,POINT OF CARE 219 MG/DL (70-110)
[2021-09-20 16:54] VITALS: BP 111/69
[2021-09-20] MEDS: QUEtiapine FUMARATE 200 MG TABLET PO SCH (20:22)
[2021-09-20] MEDS: TraZODone HCL 50 MG TABLET PO SCH (20:22)
[2021-09-20 20:46] LABS: GLUCOMETER DEV NAME(LOC) BV2S.; GLUCOSE,POINT OF CARE 205 MG/DL (70-110)
[2021-09-20] MEDS: ZOLPIDEM TARTRATE 10 MG TABLET PO PRN (21:18)
[2021-09-21 00:15] VITALS: BP 116/68
[2021-09-21 06:35] LABS: GLUCOMETER DEV NAME(LOC) BV2S.; GLUCOSE,POINT OF CARE 65 MG/DL (70-110)
[2021-09-21 06:56] LABS: GLUCOMETER DEV NAME(LOC) BV2S.; GLUCOSE,POINT OF CARE 84 MG/DL (70-110)
[2021-09-21] MEDS: MetFORMIN HCL 500 MG TABLET PO SCH ×2 (06:58→16:36)
[2021-09-21 09:02] VITALS: BP 107/60
[2021-09-21] MEDS: FLUoxetine HCL 20 MG CAPSULE PO SCH (09:50)
[2021-09-21] MEDS: OMEGA-3/DHA/EPA/FISH OIL 1,000 MG CAPSULE PO SCH (09:50)
[2021-09-21] MEDS: MULTIVITAMINS WITH MINERALS, THERAPEUTIC TABLET PO SCH (09:50)
[2021-09-21] MEDS: THIAMINE 100 MG TABLET PO SCH (09:50)
[2021-09-21] MEDS: BACITRACIN 28 GM OINTMENT TP SCH ×2 (09:50→16:45)
[2021-09-21] MEDS: FOLIC ACID 1 MG TABLET PO SCH (09:50)
[2021-09-21] MEDS: INSULIN GLARGINE,HUM.REC.ANLOG 100 UNITS/ML SQ SCH ×2 (10:08→16:50)
[2021-09-21 10:21] LABS: GLUCOMETER DEV NAME(LOC) BV2S.; GLUCOSE,POINT OF CARE 230 MG/DL (70-110)
[2021-09-21] MEDS: LORazepam 2 MG TABLET PO PRN (10:28)
[2021-09-21] MEDS: INSULIN LISPRO 100 UNITS/ML SQ PRN ×3 (11:24→20:33)
[2021-09-21 12:01] LABS: GLUCOMETER DEV NAME(LOC) BV2S.; GLUCOSE,POINT OF CARE 243 MG/DL (70-110)
[2021-09-21 16:36] VITALS: BP 101/61
[2021-09-21 17:36] LABS: GLUCOMETER DEV NAME(LOC) BV2S.; GLUCOSE,POINT OF CARE 247 MG/DL (70-110)
[2021-09-21] MEDS: TraZODone HCL 50 MG TABLET PO SCH (20:17)
[2021-09-21] MEDS: QUEtiapine FUMARATE 200 MG TABLET PO SCH (20:17)
[2021-09-21] MEDS: ZOLPIDEM TARTRATE 10 MG TABLET PO PRN (21:03)
[2021-09-21 22:06] LABS: GLUCOMETER DEV NAME(LOC) BV2S.; GLUCOSE,POINT OF CARE 339 MG/DL (70-110)
[2021-09-22 01:07] VITALS: BP 117/69
[2021-09-22 06:26] LABS: GLUCOMETER DEV NAME(LOC) BV2S.; GLUCOSE,POINT OF CARE 120 MG/DL (70-110)
[2021-09-22] MEDS: MetFORMIN HCL 500 MG TABLET PO SCH ×2 (06:55→17:03)
[2021-09-22 08:20] VITALS: BP 120/76
[2021-09-22] MEDS: BACITRACIN 28 GM OINTMENT TP SCH ×2 (09:00→17:10)
[2021-09-22] MEDS: MULTIVITAMINS WITH MINERALS, THERAPEUTIC TABLET PO SCH (09:32)
[2021-09-22] MEDS: THIAMINE 100 MG TABLET PO SCH (09:32)
[2021-09-22] MEDS: FOLIC ACID 1 MG TABLET PO SCH (09:32)
[2021-09-22] MEDS: OMEGA-3/DHA/EPA/FISH OIL 1,000 MG CAPSULE PO SCH (09:32)
[2021-09-22] MEDS: INSULIN GLARGINE,HUM.REC.ANLOG 100 UNITS/ML SQ SCH ×2 (09:38→17:06)
[2021-09-22] MEDS: LORazepam 2 MG TABLET PO PRN ×2 (09:41→18:25)
[2021-09-22] MEDS: HALOPERIDOL 5 MG TABLET PO PRN ×2 (09:41→16:54)
[2021-09-22 09:51] LABS: GLUCOMETER DEV NAME(LOC) BV2S.; GLUCOSE,POINT OF CARE 198 MG/DL (70-110)
[2021-09-22] MEDS: INSULIN LISPRO 100 UNITS/ML SQ PRN ×3 (13:25→20:53)
[2021-09-22 13:31] LABS: GLUCOMETER DEV NAME(LOC) BV2S.; GLUCOSE,POINT OF CARE 280 MG/DL (70-110)
[2021-09-22 16:38] VITALS: BP 109/67
[2021-09-22 16:46] LABS: GLUCOMETER DEV NAME(LOC) BV2S.; GLUCOSE,POINT OF CARE 307 MG/DL (70-110)
[2021-09-22] MEDS: QUEtiapine FUMARATE 200 MG TABLET PO SCH (20:34)
[2021-09-22] MEDS: TraZODone HCL 50 MG TABLET PO SCH (20:34)
[2021-09-22 20:41] LABS: GLUCOMETER DEV NAME(LOC) BV2S.; GLUCOSE,POINT OF CARE 253 MG/DL (70-110)
[2021-09-23 00:33] VITALS: BP 118/66
[2021-09-23 06:36] LABS: GLUCOMETER DEV NAME(LOC) BV2S.; GLUCOSE,POINT OF CARE 60 MG/DL (70-110)
[2021-09-23] MEDS: MetFORMIN HCL 500 MG TABLET PO SCH ×2 (06:56→16:43)
[2021-09-23 07:26] LABS: GLUCOMETER DEV NAME(LOC) BV2S.; GLUCOSE,POINT OF CARE 106 MG/DL (70-110)
[2021-09-23 08:47] VITALS: BP 110/69
[2021-09-23] MEDS: INSULIN GLARGINE,HUM.REC.ANLOG 100 UNITS/ML SQ SCH ×2 (09:09→16:30)
[2021-09-23 09:16] LABS: GLUCOMETER DEV NAME(LOC) BV2S.; GLUCOSE,POINT OF CARE 197 MG/DL (70-110)
[2021-09-23] MEDS: MULTIVITAMINS WITH MINERALS, THERAPEUTIC TABLET PO SCH (09:42)
[2021-09-23] MEDS: THIAMINE 100 MG TABLET PO SCH (09:42)
[2021-09-23] MEDS: OMEGA-3/DHA/EPA/FISH OIL 1,000 MG CAPSULE PO SCH (09:42)
[2021-09-23] MEDS: FOLIC ACID 1 MG TABLET PO SCH (09:42)
[2021-09-23] MEDS: FLUoxetine HCL 20 MG CAPSULE PO SCH (09:43)
[2021-09-23 11:32] LABS: GLUCOMETER DEV NAME(LOC) BV2S.; GLUCOSE,POINT OF CARE 228 MG/DL (70-110)
[2021-09-23] MEDS: INSULIN LISPRO 100 UNITS/ML SQ PRN ×2 (11:32→16:30)
[2021-09-23] MEDS: LORazepam 2 MG TABLET PO PRN ×2 (12:12→18:29)
[2021-09-23] MEDS: HALOPERIDOL 5 MG TABLET PO PRN (15:37)
[2021-09-23 16:32] VITALS: BP 110/70
[2021-09-23 16:46] LABS: GLUCOMETER DEV NAME(LOC) BV2X.2; GLUCOSE,POINT OF CARE 304 MG/DL (70-110)
[2021-09-23] MEDS: TraZODone HCL 50 MG TABLET PO SCH (20:31)
[2021-09-23] MEDS: QUEtiapine FUMARATE 200 MG TABLET PO SCH (20:31)
[2021-09-23 20:36] LABS: GLUCOMETER DEV NAME(LOC) BV2S.; GLUCOSE,POINT OF CARE 114 MG/DL (70-110)
[2021-09-24 00:55] VITALS: BP 109/68
[2021-09-24 06:31] LABS: GLUCOMETER DEV NAME(LOC) BV2S.; GLUCOSE,POINT OF CARE 115 MG/DL (70-110)
[2021-09-24] MEDS: MetFORMIN HCL 500 MG TABLET PO SCH ×2 (06:39→16:01)
[2021-09-24 08:26] VITALS: BP 117/60
[2021-09-24] MEDS: INSULIN GLARGINE,HUM.REC.ANLOG 100 UNITS/ML SQ SCH ×2 (08:54→16:13)
[2021-09-24 08:56] LABS: GLUCOMETER DEV NAME(LOC) BV2S.; GLUCOSE,POINT OF CARE 256 MG/DL (70-110)
[2021-09-24] MEDS: OMEGA-3/DHA/EPA/FISH OIL 1,000 MG CAPSULE PO SCH (08:59)
[2021-09-24] MEDS: MULTIVITAMINS WITH MINERALS, THERAPEUTIC TABLET PO SCH (08:59)
[2021-09-24] MEDS: THIAMINE 100 MG TABLET PO SCH (08:59)
[2021-09-24] MEDS: FOLIC ACID 1 MG TABLET PO SCH (08:59)
[2021-09-24] MEDS: FLUoxetine HCL 20 MG CAPSULE PO SCH (09:00)
[2021-09-24 11:46] LABS: GLUCOMETER DEV NAME(LOC) BV2S.; GLUCOSE,POINT OF CARE 224 MG/DL (70-110)
[2021-09-24] MEDS: INSULIN LISPRO 100 UNITS/ML SQ PRN ×3 (11:46→20:23)
[2021-09-24 16:00] VITALS: BP 112/73
[2021-09-24] MEDS: LORazepam 2 MG TABLET PO PRN (16:01)
[2021-09-24 16:08] VITALS: BP 101/60
[2021-09-24 16:26] LABS: GLUCOMETER DEV NAME(LOC) BV2S.; GLUCOSE,POINT OF CARE 221 MG/DL (70-110)
[2021-09-24] MEDS: HALOPERIDOL 5 MG TABLET PO PRN (19:07)
[2021-09-24] MEDS: QUEtiapine FUMARATE 200 MG TABLET PO SCH (20:16)
[2021-09-24] MEDS: TraZODone HCL 50 MG TABLET PO SCH (20:16)
[2021-09-24 20:36] LABS: GLUCOMETER DEV NAME(LOC) BV2S.; GLUCOSE,POINT OF CARE 209 MG/DL (70-110)
[2021-09-25 00:40] VITALS: BP 102/62
[2021-09-25 06:26] LABS: GLUCOMETER DEV NAME(LOC) BV2S.; GLUCOSE,POINT OF CARE 267 MG/DL (70-110)
[2021-09-25] MEDS: MetFORMIN HCL 500 MG TABLET PO SCH ×2 (06:43→16:05)
[2021-09-25] MEDS: INSULIN LISPRO 100 UNITS/ML SQ PRN ×4 (06:45→20:21)
[2021-09-25 09:06] LABS: GLUCOMETER DEV NAME(LOC) POC.BV
[2021-09-25] MEDS: MULTIVITAMINS WITH MINERALS, THERAPEUTIC TABLET PO SCH (09:36)
[2021-09-25] MEDS: LORazepam 2 MG TABLET PO PRN (09:36)
[2021-09-25] MEDS: OMEGA-3/DHA/EPA/FISH OIL 1,000 MG CAPSULE PO SCH (09:36)
[2021-09-25] MEDS: FLUoxetine HCL 20 MG CAPSULE PO SCH (09:36)
[2021-09-25] MEDS: FOLIC ACID 1 MG TABLET PO SCH (09:36)
[2021-09-25] MEDS: THIAMINE 100 MG TABLET PO SCH (09:36)
[2021-09-25 09:46] VITALS: BP 116/74
[2021-09-25] MEDS: INSULIN GLARGINE,HUM.REC.ANLOG 100 UNITS/ML SQ SCH ×2 (09:47→16:13)
[2021-09-25 11:32] LABS: GLUCOMETER DEV NAME(LOC) BV2S.; GLUCOSE,POINT OF CARE 216 MG/DL (70-110)
[2021-09-25] MEDS: HALOPERIDOL 5 MG TABLET PO PRN (14:30)
[2021-09-25 16:24] VITALS: BP 108/64
[2021-09-25 16:26] LABS: GLUCOMETER DEV NAME(LOC) BV2S.; GLUCOSE,POINT OF CARE 298 MG/DL (70-110)
[2021-09-25] MEDS: QUEtiapine FUMARATE 200 MG TABLET PO SCH (20:18)
[2021-09-25] MEDS: TraZODone HCL 50 MG TABLET PO SCH (20:18)
[2021-09-25 20:36] LABS: GLUCOMETER DEV NAME(LOC) BV2S.; GLUCOSE,POINT OF CARE 185 MG/DL (70-110)
[2021-09-26 01:58] VITALS: BP 102/62
[2021-09-26 06:26] LABS: GLUCOMETER DEV NAME(LOC) BV2X.2; GLUCOSE,POINT OF CARE 104 MG/DL (70-110)
[2021-09-26] MEDS: MetFORMIN HCL 500 MG TABLET PO SCH ×2 (06:35→16:20)
[2021-09-26] MEDS: FLUoxetine HCL 20 MG CAPSULE PO SCH (08:44)
[2021-09-26] MEDS: THIAMINE 100 MG TABLET PO SCH (08:44)
[2021-09-26] MEDS: FOLIC ACID 1 MG TABLET PO SCH (08:44)
[2021-09-26] MEDS: MULTIVITAMINS WITH MINERALS, THERAPEUTIC TABLET PO SCH (08:44)
[2021-09-26] MEDS: OMEGA-3/DHA/EPA/FISH OIL 1,000 MG CAPSULE PO SCH (08:44)
[2021-09-26] MEDS: INSULIN GLARGINE,HUM.REC.ANLOG 100 UNITS/ML SQ SCH ×2 (08:53→16:32)
[2021-09-26 09:17] VITALS: BP 101/66
[2021-09-26] MEDS: LORazepam 2 MG TABLET PO PRN (09:19)
[2021-09-26 11:26] LABS: GLUCOMETER DEV NAME(LOC) BV2S.; GLUCOSE,POINT OF CARE 194 MG/DL (70-110)
[2021-09-26] MEDS: INSULIN LISPRO 100 UNITS/ML SQ PRN ×3 (11:38→21:05)
[2021-09-26 16:20] VITALS: BP 104/74
[2021-09-26] MEDS: HALOPERIDOL 5 MG TABLET PO PRN (16:20)
[2021-09-26 16:21] LABS: GLUCOMETER DEV NAME(LOC) BV2S.; GLUCOSE,POINT OF CARE 189 MG/DL (70-110)
[2021-09-26 20:26] LABS: GLUCOMETER DEV NAME(LOC) BV2S.; GLUCOSE,POINT OF CARE 196 MG/DL (70-110)
[2021-09-26] MEDS: TraZODone HCL 50 MG TABLET PO SCH (21:00)
[2021-09-26] MEDS: QUEtiapine FUMARATE 200 MG TABLET PO SCH (21:00)
[2021-09-26] MEDS: ZOLPIDEM TARTRATE 10 MG TABLET PO PRN (21:00)
[2021-09-27 01:27] VITALS: BP 107/63
[2021-09-27 06:40] LABS: GLUCOMETER DEV NAME(LOC) BV2S.; GLUCOSE,POINT OF CARE 59 MG/DL (70-110)
[2021-09-27] MEDS: MetFORMIN HCL 500 MG TABLET PO SCH (07:02)
[2021-09-27 07:05] LABS: GLUCOMETER DEV NAME(LOC) BV2S.; GLUCOSE,POINT OF CARE 71 MG/DL (70-110)
[2021-09-27 08:21] VITALS: BP 110/66
[2021-09-27] MEDS: MULTIVITAMINS WITH MINERALS, THERAPEUTIC TABLET PO SCH (08:21)
[2021-09-27] MEDS: FOLIC ACID 1 MG TABLET PO SCH (08:21)
[2021-09-27] MEDS: OMEGA-3/DHA/EPA/FISH OIL 1,000 MG CAPSULE PO SCH (08:21)
[2021-09-27] MEDS: FLUoxetine HCL 20 MG CAPSULE PO SCH (08:21)
[2021-09-27] MEDS: THIAMINE 100 MG TABLET PO SCH (08:21)
[2021-09-27] MEDS: INSULIN GLARGINE,HUM.REC.ANLOG 100 UNITS/ML SQ SCH (08:33)
[2021-09-27 08:46] LABS: GLUCOMETER DEV NAME(LOC) BV2S.; GLUCOSE,POINT OF CARE 191 MG/DL (70-110)
[2021-09-27] MEDS: INSULIN LISPRO 100 UNITS/ML SQ PRN (11:07)
[2021-09-27 11:22] LABS: GLUCOMETER DEV NAME(LOC) BV2S.; GLUCOSE,POINT OF CARE 309 MG/DL (70-110)
[2021-09-27] MEDS ORDERED: FLUO20CA36 PO (12:51)
[2021-09-27] MEDS ORDERED: PROZ20 PO (14:09)
== END 2021-09-27 13:55 | disposition home or self-care (01) | DRG 750 ==
LOC: B2S 21:14
PROVIDERS: ADMIT Psychiatry & Neurology Psychiatry; ATTEND Psychiatry & Neurology Psychiatry
DX: F25.1 Schizoaffective disorder, depressive type (principal); R45.851 Suicidal ideations; E11.9 Type 2 diabetes mellitus without complications; F10.99 Alcohol use, unspecified with unspecified alcohol-induced disorder; D64.9 Anemia, unspecified; E78.5 Hyperlipidemia, unspecified; F15.99 Other stimulant use, unspecified with unspecified stimulant-induced disorder; F32.A Depression, unspecified; I10 Essential (primary) hypertension; Z20.822 Contact with and (suspected) exposure to COVID-19; G47.00 Insomnia, unspecified; Z91.51 Personal history of suicidal behavior; Z91.14 Patient's other noncompliance with medication regimen; Z59.00 Homelessness unspecified; Z79.84 Long term (current) use of oral hypoglycemic drugs; Z79.4 Long term (current) use of insulin
CPT/HCPCS: 80053; 80061; 80307; 81001; 82962; 83036; 84439; 84443; 85025; J1815

== ENCOUNTER 2021-09-29 20:31 | Inpatient (IN) | payer MEDICAID ==
[~2021-09-29] VITALS: Ht 208.3 cm; Wt 81.2 kg
[~2021-09-29 20:31] MED LIST changes: +FLUO20CA36 PO; +PROZ20 PO
[2021-09-29 21:15] LABS: GLUCOMETER DEV NAME(LOC) POC.BV
[2021-09-29] MEDS ORDERED: HALOPERIDOL 5 MG TABLET PO PRN (23:30)
[2021-09-29] MEDS ORDERED: -PHARMACY VACCINE NOTE- MISC ONE (23:45)
[2021-09-30 00:11] LABS: GLUCOMETER DEV NAME(LOC) BV2S.; GLUCOSE,POINT OF CARE 328 MG/DL (70-110)
[2021-09-30 00:47] LABS: GLUCOMETER DEV NAME(LOC) POC.BV
[2021-09-30 01:17] VITALS: BP 142/92
[2021-09-30] MEDS: LORazepam 2 MG TABLET PO PRN ×3 (03:26→19:31)
[2021-09-30] MEDS ORDERED: ONDANSETRON HCL 4 MG TABLET PO PRN ×2 (04:00→06:30)
[2021-09-30 05:06] LABS: GLUCOMETER DEV NAME(LOC) BV2S.; GLUCOSE,POINT OF CARE 437 MG/DL (70-110)
[2021-09-30] MEDS ORDERED: GLUCAGON,HUMAN RECOMBINANT 1 MG VIAL IM PRN (05:30)
[2021-09-30] MEDS ORDERED: INSULIN LISPRO 100 UNITS/ML SQ ONE (06:00)
[2021-09-30] MEDS ORDERED: DOCUSATE SODIUM 100 MG CAPSULE PO PRN (06:30)
[2021-09-30] MEDS ORDERED: CloNIDine HCL 0.1 MG TABLET PO PRN (06:30)
[2021-09-30] MEDS ORDERED: NICOTINE 14 MG/24 HOUR PATCH TD PRN (06:30)
[2021-09-30] MEDS ORDERED: ALBUTEROL SULFATE HFA 90 MCG/PUFF 8 GM INHALER IH PRN (06:30)
[2021-09-30] MEDS ORDERED: ACETAMINOPHEN 325 MG TABLET PO PRN (06:30)
[2021-09-30] MEDS ORDERED: GuaiFENesin/D-METHORPHAN [SUGAR-FREE] 200-20MG/10 ML SYRUP UDCUP PO PRN (06:30)
[2021-09-30] MEDS ORDERED: LOPERAMIDE HCL 2 MG CAPSULE PO PRN (06:30)
[2021-09-30] MEDS ORDERED: PETROLATUM,WHITE 28 GM JELLY TP PRN (06:30)
[2021-09-30] MEDS ORDERED: IBUPROFEN 400 MG TABLET PO PRN (06:30)
[2021-09-30] MEDS ORDERED: MAG HYDROX/AL HYDROX/SIMETH ES 30 ML SUSPENSION UDCUP PO PRN (06:30)
[2021-09-30] MEDS ORDERED: MAGNESIUM HYDROXIDE SUSPENSION 30 ML UDCUP PO PRN (06:30)
[2021-09-30 07:01] LABS: GLUCOMETER DEV NAME(LOC) BV2S.; GLUCOSE,POINT OF CARE 362 MG/DL (70-110)
[2021-09-30 07:34] LABS: BASOPHILS % (AUTO) 0.5 % (0.0-2.0); EOSINOPHILS % (AUTO) 0.1 % (1.0-6.0); HEMATOCRIT 47.9 % (41-53); HEMOGLOBIN 15.1 g/dL (13.5-17.5); LYMPHOCYTES # (AUTO) 1.2 K/uL (1.0-4.8); LYMPHOCYTES % (AUTO) 8.7 % (22.0-44.0); MEAN CORPUSCULAR HEMOGLOBIN 25.8 pg (26.0-34.0); MEAN CORPUSCULAR HGB CONC 31.5 G/dL (31.0-37.0); MEAN CORPUSCULAR VOLUME 82 fL (80-100); MONOCYTES # (AUTO) 0.5 K/uL (0.1-1.0); MONOCYTES % (AUTO) 3.4 % (2.0-9.0); NEUTROPHILS # (AUTO) 12.5 K/uL (1.8-7.7); PLATELET COUNT (AUTO) 349 K/uL (150-450); RED BLOOD CELL COUNT(AUTO) 5.86 MIL/uL (4.50-5.90)
[2021-09-30 07:36] LABS: NEUTROPHILS % (AUTO) 87.3 % (40.0-70.0)
[2021-09-30] MEDS: MetFORMIN HCL 500 MG TABLET PO SCH ×2 (07:41→16:13)
[2021-09-30 07:59] LABS: ALBUMIN 4.8 g/dL (3.4-5.0); BILIRUBIN,TOTAL 0.8 mg/dL (0.1-1.0); CALCIUM, TOTAL 9.9 mg/dL (8.8-10.5); CHOL/HDL RATIO 5.2 (4.2-7.3); CREATININE 1.49 mg/dL (0.60-1.30); TOTAL PROTEIN, SERUM 8.7 g/dL (6.4-8.2)
[2021-09-30 08:01] LABS: HEMOGLOBIN A1C 9.4 % (3.8-5.6)
[2021-09-30 08:46] LABS: FREE T4 (FREE THYROXINE) 1.31 ng/dL (0.76-1.46); THYROID STIMULATING HORMONE 1.32 uIU/mL (0.36-3.74)
[2021-09-30] MEDS: OMEGA-3/DHA/EPA/FISH OIL 1,000 MG CAPSULE PO SCH (08:53)
[2021-09-30] MEDS: INSULIN GLARGINE,HUM.REC.ANLOG 100 UNITS/ML SQ SCH ×2 (08:57→16:27)
[2021-09-30 09:11] LABS: GLUCOMETER DEV NAME(LOC) BV2S.; GLUCOSE,POINT OF CARE 252 MG/DL (70-110)
[2021-09-30] MEDS ORDERED: SODIUM POLYSTYRENE SULFONATE 15 GM/60 ML SUSPENSION BOTTLE PO ONE (09:15)
[2021-09-30 10:07] VITALS: BP 116/62
[2021-09-30] MEDS: INSULIN LISPRO 100 UNITS/ML SQ PRN ×3 (11:43→20:17)
[2021-09-30] MEDS: FLUoxetine HCL 20 MG CAPSULE PO SCH (13:12)
[2021-09-30 16:36] LABS: GLUCOMETER DEV NAME(LOC) BV2S.; GLUCOSE,POINT OF CARE 363 MG/DL (70-110)
[2021-09-30 18:00] VITALS: BP 144/91
[2021-09-30] MEDS: TraZODone HCL 50 MG TABLET PO SCH (20:38)
[2021-09-30] MEDS: QUEtiapine FUMARATE 200 MG TABLET PO SCH (20:38)
[2021-09-30 20:41] LABS: GLUCOMETER DEV NAME(LOC) BV2S.; GLUCOSE,POINT OF CARE 301 MG/DL (70-110)
[2021-10-01 01:02] VITALS: BP 141/86
[2021-10-01 06:06] LABS: GLUCOMETER DEV NAME(LOC) BV2S.; GLUCOSE,POINT OF CARE 337 MG/DL (70-110)
[2021-10-01] MEDS: MetFORMIN HCL 500 MG TABLET PO SCH ×2 (06:34→17:12)
[2021-10-01] MEDS: INSULIN LISPRO 100 UNITS/ML SQ PRN ×4 (06:35→20:38)
[2021-10-01 08:41] VITALS: BP 115/63
[2021-10-01 08:56] LABS: GLUCOMETER DEV NAME(LOC) BV2S.; GLUCOSE,POINT OF CARE 318 MG/DL (70-110)
[2021-10-01] MEDS: OMEGA-3/DHA/EPA/FISH OIL 1,000 MG CAPSULE PO SCH (09:03)
[2021-10-01] MEDS: FLUoxetine HCL 20 MG CAPSULE PO SCH (09:03)
[2021-10-01] MEDS: INSULIN GLARGINE,HUM.REC.ANLOG 100 UNITS/ML SQ SCH ×2 (09:07→16:46)
[2021-10-01 11:36] LABS: GLUCOMETER DEV NAME(LOC) BV2S.; GLUCOSE,POINT OF CARE 371 MG/DL (70-110)
[2021-10-01 16:19] VITALS: BP 102/76
[2021-10-01 16:26] LABS: GLUCOMETER DEV NAME(LOC) BV2S.; GLUCOSE,POINT OF CARE 181 MG/DL (70-110)
[2021-10-01] MEDS: LORazepam 2 MG TABLET PO PRN (19:01)
[2021-10-01] MEDS: QUEtiapine FUMARATE 200 MG TABLET PO SCH (20:29)
[2021-10-01] MEDS: TraZODone HCL 50 MG TABLET PO SCH (20:29)
[2021-10-01 20:51] LABS: GLUCOMETER DEV NAME(LOC) BV2S.; GLUCOSE,POINT OF CARE 206 MG/DL (70-110)
[2021-10-02 00:10] VITALS: BP 114/72
[2021-10-02] MEDS: INSULIN LISPRO 100 UNITS/ML SQ PRN ×4 (06:20→20:56)
[2021-10-02] MEDS: MetFORMIN HCL 500 MG TABLET PO SCH ×2 (06:25→16:33)
[2021-10-02 06:26] LABS: GLUCOMETER DEV NAME(LOC) BV2S.; GLUCOSE,POINT OF CARE 230 MG/DL (70-110)
[2021-10-02 08:24] VITALS: BP 117/66
[2021-10-02] MEDS: FLUoxetine HCL 20 MG CAPSULE PO SCH (09:15)
[2021-10-02] MEDS: OMEGA-3/DHA/EPA/FISH OIL 1,000 MG CAPSULE PO SCH (09:15)
[2021-10-02] MEDS: INSULIN GLARGINE,HUM.REC.ANLOG 100 UNITS/ML SQ SCH ×2 (10:01→16:40)
[2021-10-02 11:16] LABS: GLUCOMETER DEV NAME(LOC) BV2S.; GLUCOSE,POINT OF CARE 193 MG/DL (70-110)
[2021-10-02 16:34] VITALS: BP 122/68
[2021-10-02 16:41] LABS: GLUCOMETER DEV NAME(LOC) BV2S.; GLUCOSE,POINT OF CARE 185 MG/DL (70-110)
[2021-10-02] MEDS: LORazepam 2 MG TABLET PO PRN (16:46)
[2021-10-02] MEDS: TraZODone HCL 50 MG TABLET PO SCH (20:32)
[2021-10-02] MEDS: QUEtiapine FUMARATE 200 MG TABLET PO SCH (20:32)
[2021-10-02 20:41] LABS: GLUCOMETER DEV NAME(LOC) BV2S.; GLUCOSE,POINT OF CARE 181 MG/DL (70-110)
[2021-10-03 06:07] VITALS: BP 109/68
[2021-10-03 06:31] LABS: GLUCOMETER DEV NAME(LOC) BV2S.; GLUCOSE,POINT OF CARE 190 MG/DL (70-110)
[2021-10-03] MEDS: MetFORMIN HCL 500 MG TABLET PO SCH ×2 (06:48→16:45)
[2021-10-03] MEDS: INSULIN LISPRO 100 UNITS/ML SQ PRN ×4 (06:53→20:17)
[2021-10-03 08:21] VITALS: BP 108/67
[2021-10-03] MEDS: OMEGA-3/DHA/EPA/FISH OIL 1,000 MG CAPSULE PO SCH (08:32)
[2021-10-03] MEDS: FLUoxetine HCL 20 MG CAPSULE PO SCH (08:32)
[2021-10-03] MEDS: INSULIN GLARGINE,HUM.REC.ANLOG 100 UNITS/ML SQ SCH ×2 (08:47→16:56)
[2021-10-03 11:31] LABS: GLUCOMETER DEV NAME(LOC) BV2S.; GLUCOSE,POINT OF CARE 144 MG/DL (70-110)
[2021-10-03] MEDS: LORazepam 2 MG TABLET PO PRN ×2 (12:04→19:22)
[2021-10-03 16:24] VITALS: BP 123/79
[2021-10-03 17:16] LABS: GLUCOMETER DEV NAME(LOC) BV2S.; GLUCOSE,POINT OF CARE 193 MG/DL (70-110)
[2021-10-03] MEDS: TraZODone HCL 50 MG TABLET PO SCH (20:15)
[2021-10-03] MEDS: QUEtiapine FUMARATE 200 MG TABLET PO SCH (20:15)
[2021-10-03 21:00] LABS: GLUCOMETER DEV NAME(LOC) BV2S.; GLUCOSE,POINT OF CARE 294 MG/DL (70-110)
[2021-10-04 06:16] LABS: GLUCOMETER DEV NAME(LOC) BV2S.; GLUCOSE,POINT OF CARE 179 MG/DL (70-110)
[2021-10-04 06:22] VITALS: BP 113/61
[2021-10-04] MEDS: MetFORMIN HCL 500 MG TABLET PO SCH ×2 (06:35→16:33)
[2021-10-04] MEDS: INSULIN LISPRO 100 UNITS/ML SQ PRN ×4 (06:36→20:07)
[2021-10-04 07:35] LABS: AMPHET/METH SCREEN,URINE NEGATIVE (NEGATIVE); BARBITURATE SCREEN, URINE NEGATIVE (NEGATIVE); BENZODIAZEPINES SCREEN,URINE NEGATIVE (NEGATIVE); CANNABINOID SCREEN,URINE NEGATIVE (NEGATIVE); COCAINE SCREEN,URINE NEGATIVE (NEGATIVE); METHADONE SCREEN, URINE NEGATIVE (NEGATIVE); OPIATE SCREEN,URINE NEGATIVE (NEGATIVE)
[2021-10-04 07:51] LABS: GLUCOMETER DEV NAME(LOC) POC.BV
[2021-10-04 07:52] LABS: PHENCYCLIDINE SCREEN,URINE NEGATIVE (NEGATIVE)
[2021-10-04 07:58] LABS: APPEARANCE,URINE CLEAR (CLEAR); BILIRUBIN,URINE NEGATIVE (NEGATIVE); GLUCOSE, URINE (UA) >=1000 mg/dL (NEGATIVE); KETONES,URINE NEGATIVE (NEGATIVE); LEUKOCYTE ESTERASE ,URINE NEGATIVE (NEGATIVE); NITRATE,URINE NEGATIVE (NEGATIVE); OCCULT BLOOD,URINE NEGATIVE (NEGATIVE); PH,URINE 5.5 (5.0-8.0); PROTEIN,URINE NEGATIVE (NEGATIVE); SPECIFIC GRAVITIY, URINE 1.029 (1.003-1.030); UROBILINOGEN,URINE <=1.0 mg/dL (<=1.0)
[2021-10-04 08:00] LABS: BACTERIA,URINE None Seen /HPF (None Seen); RBC,URINE None Seen /HPF (0-2); WBC,URINE None Seen /HPF (0-5)
[2021-10-04] MEDS: OMEGA-3/DHA/EPA/FISH OIL 1,000 MG CAPSULE PO SCH (08:15)
[2021-10-04] MEDS: FLUoxetine HCL 20 MG CAPSULE PO SCH (08:15)
[2021-10-04 08:19] VITALS: BP 122/63
[2021-10-04] MEDS: INSULIN GLARGINE,HUM.REC.ANLOG 100 UNITS/ML SQ SCH ×2 (08:45→16:47)
[2021-10-04 11:51] LABS: GLUCOMETER DEV NAME(LOC) BV2S.; GLUCOSE,POINT OF CARE 299 MG/DL (70-110)
[2021-10-04] MEDS: LORazepam 2 MG TABLET PO PRN (12:13)
[2021-10-04 16:06] VITALS: BP 125/64
[2021-10-04 17:16] LABS: GLUCOMETER DEV NAME(LOC) BV2S.; GLUCOSE,POINT OF CARE 263 MG/DL (70-110)
[2021-10-04] MEDS: TraZODone HCL 50 MG TABLET PO SCH (20:06)
[2021-10-04] MEDS: QUEtiapine FUMARATE 200 MG TABLET PO SCH (20:06)
[2021-10-04 20:51] LABS: GLUCOMETER DEV NAME(LOC) BV2S.; GLUCOSE,POINT OF CARE 139 MG/DL (70-110)
[2021-10-05 06:21] LABS: GLUCOMETER DEV NAME(LOC) BV2S.; GLUCOSE,POINT OF CARE 185 MG/DL (70-110)
[2021-10-05] MEDS: INSULIN LISPRO 100 UNITS/ML SQ PRN ×4 (06:21→20:29)
[2021-10-05] MEDS: MetFORMIN HCL 500 MG TABLET PO SCH ×2 (06:21→16:22)
[2021-10-05 06:27] VITALS: BP 117/67
[2021-10-05 07:20] LABS: BASOPHILS % (AUTO) 1.1 % (0.0-2.0); EOSINOPHILS % (AUTO) 3.2 % (1.0-6.0); HEMATOCRIT 36.5 % (41-53); HEMOGLOBIN 12.1 g/dL (13.5-17.5); LYMPHOCYTES % (AUTO) 43.6 % (22.0-44.0); MEAN CORPUSCULAR HGB CONC 33.2 G/dL (31.0-37.0); MEAN CORPUSCULAR VOLUME 78 fL (80-100); MONOCYTES # (AUTO) 0.4 K/uL (0.1-1.0); MONOCYTES % (AUTO) 8.5 % (2.0-9.0); NEUTROPHILS % (AUTO) 43.6 % (40.0-70.0); PLATELET COUNT (AUTO) 174 K/uL (150-450); RED BLOOD CELL COUNT(AUTO) 4.67 MIL/uL (4.50-5.90); RED CELL DISTRIBUTION WIDTH 18.1 % (11.5-14.5)
[2021-10-05] MEDS: FLUoxetine HCL 20 MG CAPSULE PO SCH (08:33)
[2021-10-05] MEDS: OMEGA-3/DHA/EPA/FISH OIL 1,000 MG CAPSULE PO SCH (08:33)
[2021-10-05 08:34] VITALS: BP 111/66
[2021-10-05] MEDS: INSULIN GLARGINE,HUM.REC.ANLOG 100 UNITS/ML SQ SCH ×2 (08:49→16:39)
[2021-10-05 11:31] LABS: GLUCOMETER DEV NAME(LOC) BV2S.; GLUCOSE,POINT OF CARE 158 MG/DL (70-110)
[2021-10-05] MEDS: LORazepam 2 MG TABLET PO PRN (12:46)
[2021-10-05 16:14] VITALS: BP 118/66
[2021-10-05 17:01] LABS: GLUCOMETER DEV NAME(LOC) BV2S.; GLUCOSE,POINT OF CARE 144 MG/DL (70-110)
[2021-10-05] MEDS: QUEtiapine FUMARATE 200 MG TABLET PO SCH (20:07)
[2021-10-05] MEDS: TraZODone HCL 50 MG TABLET PO SCH (20:07)
[2021-10-05 21:46] LABS: GLUCOMETER DEV NAME(LOC) BV2S.; GLUCOSE,POINT OF CARE 222 MG/DL (70-110)
[2021-10-06 06:26] LABS: GLUCOMETER DEV NAME(LOC) BV2S.; GLUCOSE,POINT OF CARE 173 MG/DL (70-110)
[2021-10-06] MEDS: MetFORMIN HCL 500 MG TABLET PO SCH ×2 (06:31→16:31)
[2021-10-06] MEDS: INSULIN LISPRO 100 UNITS/ML SQ PRN ×4 (06:32→20:47)
[2021-10-06 08:15] VITALS: BP 125/78
[2021-10-06 08:46] LABS: GLUCOMETER DEV NAME(LOC) BV2S.; GLUCOSE,POINT OF CARE 212 MG/DL (70-110)
[2021-10-06] MEDS: OMEGA-3/DHA/EPA/FISH OIL 1,000 MG CAPSULE PO SCH (09:01)
[2021-10-06] MEDS: FLUoxetine HCL 20 MG CAPSULE PO SCH (09:01)
[2021-10-06] MEDS: INSULIN GLARGINE,HUM.REC.ANLOG 100 UNITS/ML SQ SCH ×2 (09:05→16:38)
[2021-10-06] MEDS: LORazepam 2 MG TABLET PO PRN ×2 (09:48→18:50)
[2021-10-06 11:31] LABS: GLUCOMETER DEV NAME(LOC) BV2S.; GLUCOSE,POINT OF CARE 181 MG/DL (70-110)
[2021-10-06 16:29] VITALS: BP 133/74
[2021-10-06 16:31] LABS: GLUCOMETER DEV NAME(LOC) BV2S.; GLUCOSE,POINT OF CARE 202 MG/DL (70-110)
[2021-10-06 20:26] LABS: GLUCOMETER DEV NAME(LOC) BV2S.; GLUCOSE,POINT OF CARE 181 MG/DL (70-110)
[2021-10-06] MEDS: TraZODone HCL 50 MG TABLET PO SCH (20:37)
[2021-10-06] MEDS: QUEtiapine FUMARATE 200 MG TABLET PO SCH (20:37)
[2021-10-07 00:25] VITALS: BP 105/66
[2021-10-07] MEDS: MetFORMIN HCL 500 MG TABLET PO SCH ×2 (06:28→16:33)
[2021-10-07] MEDS: INSULIN LISPRO 100 UNITS/ML SQ PRN ×4 (06:31→20:41)
[2021-10-07 06:35] LABS: GLUCOMETER DEV NAME(LOC) BV2S.; GLUCOSE,POINT OF CARE 153 MG/DL (70-110)
[2021-10-07 08:30] VITALS: BP 103/63
[2021-10-07] MEDS: FLUoxetine HCL 20 MG CAPSULE PO SCH (09:01)
[2021-10-07] MEDS: OMEGA-3/DHA/EPA/FISH OIL 1,000 MG CAPSULE PO SCH (09:01)
[2021-10-07] MEDS: INSULIN GLARGINE,HUM.REC.ANLOG 100 UNITS/ML SQ SCH ×2 (09:03→16:40)
[2021-10-07 11:10] LABS: GLUCOMETER DEV NAME(LOC) BV2S.; GLUCOSE,POINT OF CARE 201 MG/DL (70-110)
[2021-10-07] MEDS: LORazepam 2 MG TABLET PO PRN (11:47)
[2021-10-07 16:27] VITALS: BP 143/83
[2021-10-07 16:31] LABS: GLUCOMETER DEV NAME(LOC) BV2S.; GLUCOSE,POINT OF CARE 262 MG/DL (70-110)
[2021-10-07 18:58] VITALS: BP 128/69
[2021-10-07] MEDS: TraZODone HCL 50 MG TABLET PO SCH (20:27)
[2021-10-07] MEDS: QUEtiapine FUMARATE 200 MG TABLET PO SCH (20:27)
[2021-10-07 20:31] LABS: GLUCOMETER DEV NAME(LOC) BV2S.; GLUCOSE,POINT OF CARE 213 MG/DL (70-110)
[2021-10-07] MEDS: ZOLPIDEM TARTRATE 10 MG TABLET PO PRN (21:10)
[2021-10-08 00:42] VITALS: BP 117/66
[2021-10-08 06:17] LABS: GLUCOMETER DEV NAME(LOC) BV2S.; GLUCOSE,POINT OF CARE 189 MG/DL (70-110)
[2021-10-08] MEDS: INSULIN LISPRO 100 UNITS/ML SQ PRN ×3 (06:30→20:38)
[2021-10-08] MEDS: MetFORMIN HCL 500 MG TABLET PO SCH ×2 (06:30→16:29)
[2021-10-08 08:11] VITALS: BP 120/70
[2021-10-08] MEDS: OMEGA-3/DHA/EPA/FISH OIL 1,000 MG CAPSULE PO SCH (08:32)
[2021-10-08] MEDS: FLUoxetine HCL 20 MG CAPSULE PO SCH (08:32)
[2021-10-08] MEDS: INSULIN GLARGINE,HUM.REC.ANLOG 100 UNITS/ML SQ SCH ×2 (08:35→16:38)
[2021-10-08] MEDS: LORazepam 2 MG TABLET PO PRN (11:20)
[2021-10-08 11:26] LABS: GLUCOMETER DEV NAME(LOC) BV2S.; GLUCOSE,POINT OF CARE 110 MG/DL (70-110)
[2021-10-08 16:07] VITALS: BP 101/66
[2021-10-08] MEDS: TraZODone HCL 50 MG TABLET PO SCH (20:32)
[2021-10-08] MEDS: QUEtiapine FUMARATE 200 MG TABLET PO SCH (20:32)
[2021-10-09 00:51] VITALS: BP 122/68
[2021-10-09] MEDS: MetFORMIN HCL 500 MG TABLET PO SCH ×2 (06:28→16:15)
[2021-10-09] MEDS: INSULIN LISPRO 100 UNITS/ML SQ PRN ×4 (06:29→20:04)
[2021-10-09 08:09] VITALS: BP 109/69
[2021-10-09] MEDS: FLUoxetine HCL 20 MG CAPSULE PO SCH (08:32)
[2021-10-09] MEDS: OMEGA-3/DHA/EPA/FISH OIL 1,000 MG CAPSULE PO SCH (08:32)
[2021-10-09] MEDS: INSULIN GLARGINE,HUM.REC.ANLOG 100 UNITS/ML SQ SCH ×2 (08:55→16:36)
[2021-10-09 16:13] VITALS: BP 145/85
[2021-10-09] MEDS ORDERED: INSLAN SQ (16:15)
[2021-10-09] MEDS ORDERED: TRAZ-252 PO (16:15)
[2021-10-09] MEDS ORDERED: QUET200T PO (16:15)
[2021-10-09] MEDS ORDERED: PROZ20 PO (16:15)
[2021-10-09] MEDS ORDERED: METF-1211 PO (16:15)
[2021-10-09 16:21] LABS: GLUCOMETER DEV NAME(LOC) POC.BV
[2021-10-09 16:32] LABS: GLUCOMETER DEV NAME(LOC) BV2S.; GLUCOSE,POINT OF CARE 174 MG/DL (70-110)
[2021-10-09 16:32] LABS: GLUCOMETER DEV NAME(LOC) BV2S.; GLUCOSE,POINT OF CARE 189 MG/DL (70-110)
[2021-10-09 16:32] LABS: GLUCOMETER DEV NAME(LOC) BV2S.; GLUCOSE,POINT OF CARE 225 MG/DL (70-110)
[2021-10-09 16:37] LABS: GLUCOMETER DEV NAME(LOC) BV2S.; GLUCOSE,POINT OF CARE 177 MG/DL (70-110)
[2021-10-09 16:38] LABS: GLUCOMETER DEV NAME(LOC) BV2S.; GLUCOSE,POINT OF CARE 176 MG/DL (70-110)
[2021-10-09 16:39] LABS: GLUCOMETER DEV NAME(LOC) BV2S.; GLUCOSE,POINT OF CARE 189 MG/DL (70-110)
[2021-10-09 16:39] LABS: GLUCOMETER DEV NAME(LOC) BV2S.; GLUCOSE,POINT OF CARE 225 MG/DL (70-110)
[2021-10-09 16:39] LABS: GLUCOMETER DEV NAME(LOC) BV2S.; GLUCOSE,POINT OF CARE 174 MG/DL (70-110)
[2021-10-09 18:46] LABS: GLUCOMETER DEV NAME(LOC) BV2S.; GLUCOSE,POINT OF CARE 192 MG/DL (70-110)
[2021-10-09] MEDS: TraZODone HCL 50 MG TABLET PO SCH (20:05)
[2021-10-09] MEDS: QUEtiapine FUMARATE 200 MG TABLET PO SCH (20:05)
[2021-10-09 20:21] LABS: GLUCOMETER DEV NAME(LOC) BV2S.; GLUCOSE,POINT OF CARE 276 MG/DL (70-110)
[2021-10-09] MEDS: ZOLPIDEM TARTRATE 10 MG TABLET PO PRN (21:19)
[2021-10-10 00:45] VITALS: BP 128/76
[2021-10-10 06:26] LABS: GLUCOMETER DEV NAME(LOC) BV2S.; GLUCOSE,POINT OF CARE 169 MG/DL (70-110)
[2021-10-10] MEDS: MetFORMIN HCL 500 MG TABLET PO SCH (06:33)
[2021-10-10] MEDS: INSULIN LISPRO 100 UNITS/ML SQ PRN (06:45)
== END 2021-10-10 07:30 | disposition home or self-care (01) | DRG 750 ==
LOC: B2S 23:21
PROVIDERS: ADMIT Psychiatry & Neurology Psychiatry; ATTEND Psychiatry & Neurology Psychiatry
DX: F25.1 Schizoaffective disorder, depressive type (principal); R45.851 Suicidal ideations; E11.9 Type 2 diabetes mellitus without complications; D72.829 Elevated white blood cell count, unspecified; E87.6 Hypokalemia; F10.10 Alcohol abuse, uncomplicated; G89.29 Other chronic pain; Z20.822 Contact with and (suspected) exposure to COVID-19; F15.10 Other stimulant abuse, uncomplicated; I10 Essential (primary) hypertension; Z59.00 Homelessness unspecified; Z79.899 Other long term (current) drug therapy
CPT/HCPCS: 80053; 80061; 80307; 81001; 82962; 83036; 84132; 84439; 84443; 85025; 87081; J1815; Q0162

== ENCOUNTER 2021-11-12 11:32 | Inpatient (IN) | payer MEDICAID ==
[~2021-11-12] VITALS: Ht 177.8 cm; Wt 81.4 kg
[~2021-11-12 11:32] MED LIST changes: -FLUO20CA36 PO
[2021-11-12] MEDS ORDERED: INSLAN SQ ×2 (14:20→14:21)
[2021-11-12] MEDS ORDERED: FAMO20 PO (14:20)
[2021-11-12] MEDS ORDERED: QUET100T PO (14:21)
[2021-11-12] MEDS ORDERED: INSU100V SQ (14:22)
[2021-11-12] MEDS ORDERED: LORA-1000 PO (14:22)
[2021-11-12] MEDS ORDERED: MELA3TAB89 PO (14:22)
[2021-11-12 16:18] VITALS: BP 115/74
[2021-11-12 17:32] LABS: GLUCOMETER DEV NAME(LOC) POC.BV
[2021-11-12] MEDS: LORazepam 2 MG TABLET PO PRN (17:41)
[2021-11-12] MEDS ORDERED: GLUCAGON,HUMAN RECOMBINANT 1 MG VIAL IM PRN (18:00)
[2021-11-12] MEDS: INSULIN LISPRO 100 UNITS/ML SQ PRN ×2 (18:35→20:33)
[2021-11-12] MEDS: ZOLPIDEM TARTRATE 10 MG TABLET PO PRN (20:34)
[2021-11-12] MEDS ORDERED: INSULIN GLARGINE,HUM.REC.ANLOG 100 UNITS/ML SQ SCH (21:00)
[2021-11-12 21:07] LABS: GLUCOMETER DEV NAME(LOC) BV2S.; GLUCOSE,POINT OF CARE 328 MG/DL (70-110)
[2021-11-13 01:09] VITALS: BP 110/69
[2021-11-13 08:42] VITALS: BP 126/84
[2021-11-13] MEDS ORDERED: INSULIN GLARGINE,HUM.REC.ANLOG 100 UNITS/ML SQ SCH (09:00)
[2021-11-13] MEDS: FAMOTIDINE 20 MG TABLET PO SCH ×2 (09:09→18:00)
[2021-11-13] MEDS ORDERED: PETROLATUM,WHITE 28 GM JELLY TP PRN (10:15)
[2021-11-13] MEDS ORDERED: IBUPROFEN 600 MG TABLET PO PRN (10:15)
[2021-11-13] MEDS ORDERED: ACETAMINOPHEN 325 MG TABLET PO PRN (10:15)
[2021-11-13] MEDS ORDERED: DOCUSATE SODIUM 100 MG CAPSULE PO PRN (10:15)
[2021-11-13] MEDS ORDERED: OMEPRAZOLE 20 MG CAPSULE PO PRN (10:15)
[2021-11-13] MEDS ORDERED: MAGNESIUM HYDROXIDE SUSPENSION 30 ML UDCUP PO PRN (10:15)
[2021-11-13] MEDS ORDERED: CloNIDine HCL 0.1 MG TABLET PO PRN (10:15)
[2021-11-13] MEDS ORDERED: MAG HYDROX/AL HYDROX/SIMETH ES 30 ML SUSPENSION UDCUP PO PRN (10:15)
[2021-11-13] MEDS ORDERED: BENZOCAINE/MENTHOL LOZENGE PO PRN (10:15)
[2021-11-13] MEDS ORDERED: ALBUTEROL SULFATE HFA 90 MCG/PUFF 8 GM INHALER IH PRN (10:15)
[2021-11-13] MEDS ORDERED: LOPERAMIDE HCL 2 MG CAPSULE PO PRN (10:15)
[2021-11-13] MEDS ORDERED: GLUCAGON,HUMAN RECOMBINANT 1 MG VIAL IM PRN (10:15)
[2021-11-13] MEDS ORDERED: BACITRACIN 28 GM OINTMENT TP PRN (10:15)
[2021-11-13] MEDS ORDERED: ONDANSETRON HCL 4 MG TABLET PO PRN (10:15)
[2021-11-13] MEDS: INSULIN LISPRO 100 UNITS/ML SQ PRN ×2 (11:08→20:29)
[2021-11-13 11:16] LABS: GLUCOMETER DEV NAME(LOC) BV2S.; GLUCOSE,POINT OF CARE 394 MG/DL (70-110)
[2021-11-13 11:16] LABS: GLUCOMETER DEV NAME(LOC) BV2S.; GLUCOSE,POINT OF CARE 90 MG/DL (70-110)
[2021-11-13] MEDS: LORazepam 2 MG TABLET PO PRN (15:54)
[2021-11-13 17:41] VITALS: BP 116/77
[2021-11-13 18:36] LABS: GLUCOMETER DEV NAME(LOC) BV2S.; GLUCOSE,POINT OF CARE 115 MG/DL (70-110)
[2021-11-13 19:25] LABS: GLUCOMETER DEV NAME(LOC) POC.BV
[2021-11-13] MEDS: ATORVASTATIN CALCIUM 20 MG TABLET PO SCH (20:13)
[2021-11-13] MEDS: INSULIN GLARGINE,HUM.REC.ANLOG 100 UNITS/ML SQ SCH (20:17)
[2021-11-13] MEDS: ZOLPIDEM TARTRATE 10 MG TABLET PO PRN (20:21)
[2021-11-13 20:41] LABS: GLUCOMETER DEV NAME(LOC) BV2S.; GLUCOSE,POINT OF CARE 406 MG/DL (70-110)
[2021-11-13 22:21] LABS: GLUCOMETER DEV NAME(LOC) BV2S.; GLUCOSE,POINT OF CARE 205 MG/DL (70-110)
[2021-11-14 06:25] VITALS: BP 137/82
[2021-11-14 06:26] LABS: GLUCOMETER DEV NAME(LOC) BV2S.; GLUCOSE,POINT OF CARE 231 MG/DL (70-110)
[2021-11-14] MEDS: INSULIN LISPRO 100 UNITS/ML SQ PRN ×3 (06:41→20:46)
[2021-11-14] MEDS: FAMOTIDINE 20 MG TABLET PO SCH ×2 (08:16→16:39)
[2021-11-14] MEDS: LORazepam 2 MG TABLET PO PRN ×2 (08:16→12:28)
[2021-11-14 08:34] VITALS: BP 122/75
[2021-11-14] MEDS: HALOPERIDOL 5 MG TABLET PO PRN ×2 (11:14→16:17)
[2021-11-14 11:41] LABS: GLUCOMETER DEV NAME(LOC) BV2S.; GLUCOSE,POINT OF CARE 124 MG/DL (70-110)
[2021-11-14 16:15] VITALS: BP 116/60
[2021-11-14 16:26] LABS: GLUCOMETER DEV NAME(LOC) BV2S.; GLUCOSE,POINT OF CARE 272 MG/DL (70-110)
[2021-11-14] MEDS: DIVALPROEX SODIUM 500 MG DR TABLET PO SCH (16:39)
[2021-11-14 20:26] LABS: GLUCOMETER DEV NAME(LOC) BV2S.; GLUCOSE,POINT OF CARE 212 MG/DL (70-110)
[2021-11-14] MEDS: ATORVASTATIN CALCIUM 20 MG TABLET PO SCH (20:40)
[2021-11-14] MEDS: OLANZapine 10 MG TABLET PO SCH (20:40)
[2021-11-14] MEDS: INSULIN GLARGINE,HUM.REC.ANLOG 100 UNITS/ML SQ SCH (20:46)
[2021-11-15 05:48] VITALS: BP 125/78
[2021-11-15 06:36] LABS: GLUCOMETER DEV NAME(LOC) BV2S.; GLUCOSE,POINT OF CARE 356 MG/DL (70-110)
[2021-11-15] MEDS: INSULIN LISPRO 100 UNITS/ML SQ PRN ×4 (06:36→20:06)
[2021-11-15] MEDS: CITALOPRAM HYDROBROMIDE 20 MG TABLET PO SCH (08:20)
[2021-11-15] MEDS: DIVALPROEX SODIUM 500 MG DR TABLET PO SCH ×2 (08:20→16:53)
[2021-11-15] MEDS: FAMOTIDINE 20 MG TABLET PO SCH ×2 (08:20→16:24)
[2021-11-15 08:47] VITALS: BP 108/82
[2021-11-15 11:27] LABS: GLUCOMETER DEV NAME(LOC) BV2S.; GLUCOSE,POINT OF CARE 277 MG/DL (70-110)
[2021-11-15] MEDS: LORazepam 2 MG TABLET PO PRN (12:30)
[2021-11-15 16:14] VITALS: BP 103/62
[2021-11-15 17:01] LABS: GLUCOMETER DEV NAME(LOC) BV2S.; GLUCOSE,POINT OF CARE 316 MG/DL (70-110)
[2021-11-15] MEDS: OLANZapine 10 MG TABLET PO SCH (20:04)
[2021-11-15] MEDS: ZOLPIDEM TARTRATE 10 MG TABLET PO PRN (20:04)
[2021-11-15] MEDS: ATORVASTATIN CALCIUM 20 MG TABLET PO SCH (20:04)
[2021-11-15] MEDS: INSULIN GLARGINE,HUM.REC.ANLOG 100 UNITS/ML SQ SCH (20:07)
[2021-11-15 20:42] LABS: GLUCOMETER DEV NAME(LOC) BV2S.; GLUCOSE,POINT OF CARE 273 MG/DL (70-110)
[2021-11-16 00:42] VITALS: BP 107/64
[2021-11-16 06:41] LABS: GLUCOMETER DEV NAME(LOC) BV2S.; GLUCOSE,POINT OF CARE 327 MG/DL (70-110)
[2021-11-16] MEDS: INSULIN LISPRO 100 UNITS/ML SQ PRN ×4 (06:45→20:12)
[2021-11-16 08:24] VITALS: BP 109/74
[2021-11-16] MEDS: CITALOPRAM HYDROBROMIDE 20 MG TABLET PO SCH (08:31)
[2021-11-16] MEDS: FAMOTIDINE 20 MG TABLET PO SCH ×2 (08:31→16:39)
[2021-11-16] MEDS: DIVALPROEX SODIUM 500 MG DR TABLET PO SCH ×2 (08:31→16:39)
[2021-11-16 11:51] LABS: GLUCOMETER DEV NAME(LOC) BV2S.; GLUCOSE,POINT OF CARE 229 MG/DL (70-110)
[2021-11-16] MEDS: LORazepam 2 MG TABLET PO PRN (13:09)
[2021-11-16 16:04] VITALS: BP 132/81
[2021-11-16 18:06] LABS: GLUCOMETER DEV NAME(LOC) BV2S.; GLUCOSE,POINT OF CARE 329 MG/DL (70-110)
[2021-11-16] MEDS: OLANZapine 10 MG TABLET PO SCH (19:59)
[2021-11-16] MEDS: ATORVASTATIN CALCIUM 20 MG TABLET PO SCH (20:00)
[2021-11-16] MEDS: INSULIN GLARGINE,HUM.REC.ANLOG 100 UNITS/ML SQ SCH (20:12)
[2021-11-16 20:20] LABS: GLUCOMETER DEV NAME(LOC) BV2S.; GLUCOSE,POINT OF CARE 385 MG/DL (70-110)
[2021-11-16] MEDS: ZOLPIDEM TARTRATE 10 MG TABLET PO PRN (20:47)
[2021-11-17 00:47] VITALS: BP 142/78
[2021-11-17] MEDS: INSULIN LISPRO 100 UNITS/ML SQ PRN ×4 (06:27→21:31)
[2021-11-17 06:41] LABS: GLUCOMETER DEV NAME(LOC) BV2S.; GLUCOSE,POINT OF CARE 168 MG/DL (70-110)
[2021-11-17 08:06] VITALS: BP 109/63
[2021-11-17] MEDS: DIVALPROEX SODIUM 500 MG DR TABLET PO SCH ×2 (10:00→16:14)
[2021-11-17] MEDS: CITALOPRAM HYDROBROMIDE 20 MG TABLET PO SCH (10:00)
[2021-11-17] MEDS: FAMOTIDINE 20 MG TABLET PO SCH ×2 (10:00→16:14)
[2021-11-17 11:11] LABS: GLUCOMETER DEV NAME(LOC) BV2S.; GLUCOSE,POINT OF CARE 261 MG/DL (70-110)
[2021-11-17] MEDS: LORazepam 2 MG TABLET PO PRN (12:31)
[2021-11-17 16:07] VITALS: BP 120/69
[2021-11-17 17:16] LABS: GLUCOMETER DEV NAME(LOC) BV2S.; GLUCOSE,POINT OF CARE 270 MG/DL (70-110)
[2021-11-17] MEDS: HALOPERIDOL 5 MG TABLET PO PRN (17:39)
[2021-11-17 21:05] VITALS: BP 122/84
[2021-11-17 21:11] LABS: GLUCOMETER DEV NAME(LOC) BV2S.; GLUCOSE,POINT OF CARE 337 MG/DL (70-110)
[2021-11-17] MEDS: ATORVASTATIN CALCIUM 20 MG TABLET PO SCH (21:21)
[2021-11-17] MEDS: OLANZapine 10 MG TABLET PO SCH (21:21)
[2021-11-17] MEDS: INSULIN GLARGINE,HUM.REC.ANLOG 100 UNITS/ML SQ SCH (21:30)
[2021-11-17] MEDS: ZOLPIDEM TARTRATE 10 MG TABLET PO PRN (21:41)
[2021-11-18 00:16] VITALS: BP 124/82
[2021-11-18] MEDS: INSULIN LISPRO 100 UNITS/ML SQ PRN ×4 (06:42→20:28)
[2021-11-18 06:46] LABS: GLUCOMETER DEV NAME(LOC) BV2S.; GLUCOSE,POINT OF CARE 337 MG/DL (70-110)
[2021-11-18 08:17] VITALS: BP 102/57
[2021-11-18] MEDS: DIVALPROEX SODIUM 500 MG DR TABLET PO SCH ×2 (09:16→16:17)
[2021-11-18] MEDS: FAMOTIDINE 20 MG TABLET PO SCH ×2 (09:16→16:17)
[2021-11-18] MEDS: CITALOPRAM HYDROBROMIDE 20 MG TABLET PO SCH (09:16)
[2021-11-18] MEDS: LORazepam 2 MG TABLET PO PRN (11:29)
[2021-11-18 11:31] LABS: GLUCOMETER DEV NAME(LOC) BV2S.; GLUCOSE,POINT OF CARE 322 MG/DL (70-110)
[2021-11-18 16:06] VITALS: BP 117/81
[2021-11-18] MEDS: HALOPERIDOL 5 MG TABLET PO PRN (16:21)
[2021-11-18 16:31] LABS: GLUCOMETER DEV NAME(LOC) BV2S.; GLUCOSE,POINT OF CARE 298 MG/DL (70-110)
[2021-11-18 20:16] LABS: GLUCOMETER DEV NAME(LOC) BV2S.; GLUCOSE,POINT OF CARE 327 MG/DL (70-110)
[2021-11-18] MEDS: INSULIN GLARGINE,HUM.REC.ANLOG 100 UNITS/ML SQ SCH (20:28)
[2021-11-18] MEDS: ATORVASTATIN CALCIUM 20 MG TABLET PO SCH (20:32)
[2021-11-18] MEDS: OLANZapine 10 MG TABLET PO SCH (20:32)
[2021-11-18] MEDS: ZOLPIDEM TARTRATE 10 MG TABLET PO PRN (20:47)
[2021-11-19 06:03] VITALS: BP 111/79
[2021-11-19] MEDS: INSULIN LISPRO 100 UNITS/ML SQ PRN ×2 (06:44→11:28)
[2021-11-19 06:51] LABS: GLUCOMETER DEV NAME(LOC) BV2S.; GLUCOSE,POINT OF CARE 299 MG/DL (70-110)
[2021-11-19 08:04] VITALS: BP 103/67
[2021-11-19] MEDS: CITALOPRAM HYDROBROMIDE 20 MG TABLET PO SCH (08:20)
[2021-11-19] MEDS: FAMOTIDINE 20 MG TABLET PO SCH (08:20)
[2021-11-19] MEDS: DIVALPROEX SODIUM 500 MG DR TABLET PO SCH (08:20)
[2021-11-19] MEDS ORDERED: CITA-144 PO (09:32)
[2021-11-19] MEDS ORDERED: DIVA-112 PO (09:33)
[2021-11-19] MEDS ORDERED: OLAN10TA74 PO (09:33)
[2021-11-19] MEDS ORDERED: ATOR40TA28 PO (09:34)
[2021-11-19] MEDS ORDERED: INSLAN SQ (09:34)
[2021-11-19 10:56] LABS: GLUCOMETER DEV NAME(LOC) POC.BV
[2021-11-19 11:22] LABS: GLUCOMETER DEV NAME(LOC) BV2S.; GLUCOSE,POINT OF CARE 349 MG/DL (70-110)
== END 2021-11-19 12:10 | disposition home or self-care (01) | DRG 754 ==
LOC: B2S 16:20
PROVIDERS: ADMIT Psychiatry & Neurology Psychiatry; ATTEND Psychiatry & Neurology Psychiatry
DX: F32.9 Major depressive disorder, single episode, unspecified (principal); F22 Delusional disorders; R45.851 Suicidal ideations; F41.9 Anxiety disorder, unspecified; G47.00 Insomnia, unspecified; I10 Essential (primary) hypertension; K59.00 Constipation, unspecified; E11.65 Type 2 diabetes mellitus with hyperglycemia; Z91.19 Patient's noncompliance with other medical treatment and regimen
CPT/HCPCS: 82962; 87081; J1815

== ENCOUNTER 2022-04-17 19:20 | Inpatient (IN) | payer MEDICAID, OTHER ==
[~2022-04-17] VITALS: Ht 177.8 cm; Wt 80.4 kg
[~2022-04-17 19:20] MED LIST changes: +ATOR40TA28 PO; +CITA-144 PO; +DIVA-112 PO; -METF-1211 PO; +OLAN10TA74 PO; -OMEG-108 PO; -PROZ20 PO; -QUET200T PO; -TRAZ-252 PO
[2022-04-17 22:14] LABS: COVID AG,FIA SOURCE NASOPHARYNGEAL
[2022-04-17] MEDS ORDERED: SODIUM CHLORIDE 0.9% 1,000 ML IV ONE ×2 (22:15→23:30)
[2022-04-17 22:23] LABS: APPEARANCE,URINE CLEAR (CLEAR); BILIRUBIN,URINE NEGATIVE (NEGATIVE); GLUCOSE, URINE (UA) >=1000 mg/dL (NEGATIVE); KETONES,URINE TRACE mg/dL (NEGATIVE); LEUKOCYTE ESTERASE ,URINE NEGATIVE (NEGATIVE); NITRATE,URINE NEGATIVE (NEGATIVE); OCCULT BLOOD,URINE NEGATIVE (NEGATIVE); PH,URINE 5.5 (5.0-8.0); PROTEIN,URINE NEGATIVE (NEGATIVE); SPECIFIC GRAVITIY, URINE 1.028 (1.003-1.030); UROBILINOGEN,URINE <=1.0 mg/dL (<=1.0)
[2022-04-17 22:30] LABS: AMPHET/METH SCREEN,URINE POSITIVE (NEGATIVE); BARBITURATE SCREEN, URINE NEGATIVE (NEGATIVE); BENZODIAZEPINES SCREEN,URINE NEGATIVE (NEGATIVE); CANNABINOID SCREEN,URINE NEGATIVE (NEGATIVE); COCAINE SCREEN,URINE NEGATIVE (NEGATIVE); METHADONE SCREEN, URINE NEGATIVE (NEGATIVE); OPIATE SCREEN,URINE NEGATIVE (NEGATIVE)
[2022-04-17 22:35] LABS: PHENCYCLIDINE SCREEN,URINE NEGATIVE (NEGATIVE)
[2022-04-17 22:46] LABS: BASOPHILS % (AUTO) 1.1 % (0.0-2.0); EOSINOPHILS % (AUTO) 3.3 % (1.0-6.0); HEMATOCRIT 36.2 % (41-53); HEMOGLOBIN 11.7 g/dL (13.5-17.5); LYMPHOCYTES # (AUTO) 2.4 K/uL (1.0-4.8); LYMPHOCYTES % (AUTO) 35.6 % (22.0-44.0); MEAN CORPUSCULAR HEMOGLOBIN 27.6 pg (26.0-34.0); MEAN CORPUSCULAR HGB CONC 32.3 G/dL (31.0-37.0); MEAN CORPUSCULAR VOLUME 86 fL (80-100); MONOCYTES # (AUTO) 0.6 K/uL (0.1-1.0); NEUTROPHILS # (AUTO) 3.4 K/uL (1.8-7.7); PLATELET COUNT (AUTO) 283 K/uL (150-450); RED BLOOD CELL COUNT(AUTO) 4.22 MIL/uL (4.50-5.90); RED CELL DISTRIBUTION WIDTH 20.3 % (11.5-14.5)
[2022-04-17 23:03] LABS: ALANINE AMINOTRANSFERASE 29 U/L (12-78); ALBUMIN 3.3 g/dL (3.4-5.0); ALKALINE PHOSPHATASE 121 U/L (46-116); ANION GAP 10 mmol/L (8-16); ASPARTATE AMINOTRANSFERASE 20 U/L (15-37); BILIRUBIN,TOTAL 0.5 mg/dL (0.1-1.0); CALCIUM, TOTAL 9.2 mg/dL (8.8-10.5); CARBON DIOXIDE 23 mmol/L (22-29); CHLORIDE 98 mmol/L (98-107); CREATININE 0.94 mg/dL (0.60-1.30); POTASSIUM 4.7 mmol/L (3.5-5.1); SODIUM SERUM 131 mmol/L (136-145); TOTAL PROTEIN, SERUM 6.6 g/dL (6.4-8.2); UREA NITROGEN, BLOOD 24 mg/dL (7-18)
[2022-04-17 23:06] LABS: GLOMERULAR FILTR. RATE CALC > 60 mL/min (>60); VALPROIC ACID < 3 mcg/mL (50-100)
[2022-04-17 23:07] LABS: GLUCOSE,RANDOM 512 mg/dL (70-110)
[2022-04-17 23:24] LABS: BACTERIA,URINE None Seen /HPF (None Seen); RBC,URINE 0-2 /HPF (0-2); SQUAMOUS EPITHELIAL CELL,UR Few /LPF (None Seen); WBC,URINE 0-2 /HPF (0-5)
[2022-04-17] MEDS ORDERED: INSULIN REGULAR, HUMAN 100 UNITS/ML IVP ONE (23:30)
[2022-04-18 00:51] LABS: GLUCOMETER DEV NAME(LOC) ERT.5; GLUCOSE,POINT OF CARE 309 MG/DL (70-110)
[2022-04-18] MEDS ORDERED: INSULIN REGULAR, HUMAN 100 UNITS/ML IVP ONE ×2 (01:30→03:45)
[2022-04-18 02:31] LABS: GLUCOMETER DEV NAME(LOC) ERT.5; GLUCOSE,POINT OF CARE 302 MG/DL (70-110)
[2022-04-18 02:31] LABS: GLUCOMETER DEV NAME(LOC) ERT.5; GLUCOSE,POINT OF CARE 304 MG/DL (70-110)
[2022-04-18 04:46] LABS: GLUCOMETER DEV NAME(LOC) ERT.5; GLUCOSE,POINT OF CARE 295 MG/DL (70-110)
[2022-04-18] MEDS ORDERED: CloNIDine HCL 0.1 MG TABLET PO PRN (08:00)
[2022-04-18] MEDS ORDERED: ACETAMINOPHEN 325 MG TABLET PO PRN (08:00)
[2022-04-18] MEDS ORDERED: MAGNESIUM HYDROXIDE SUSPENSION 30 ML UDCUP PO PRN (08:00)
[2022-04-18] MEDS ORDERED: ALBUTEROL SULFATE HFA 90 MCG/PUFF 8 GM INHALER IH PRN (08:00)
[2022-04-18] MEDS ORDERED: LOPERAMIDE HCL 2 MG CAPSULE PO PRN (08:00)
[2022-04-18] MEDS ORDERED: DOCUSATE SODIUM 100 MG CAPSULE PO PRN (08:00)
[2022-04-18] MEDS ORDERED: ONDANSETRON HCL 4 MG TABLET PO PRN (08:00)
[2022-04-18] MEDS ORDERED: NICOTINE 14 MG/24 HOUR PATCH TD PRN (08:00)
[2022-04-18] MEDS ORDERED: DEXTROSE 50%-WATER 25 GM/50 ML SYRINGE IVP PRN (08:00)
[2022-04-18] MEDS ORDERED: PETROLATUM,WHITE 28 GM JELLY TP PRN (08:00)
[2022-04-18] MEDS ORDERED: GuaiFENesin/D-METHORPHAN [SUGAR-FREE] 200-20MG/10 ML SYRUP UDCUP PO PRN (08:00)
[2022-04-18] MEDS ORDERED: IBUPROFEN 400 MG TABLET PO PRN (08:00)
[2022-04-18] MEDS ORDERED: MAG HYDROX/AL HYDROX/SIMETH ES 30 ML SUSPENSION UDCUP PO PRN (08:00)
[2022-04-18] MEDS: INSULIN LISPRO 100 UNITS/ML SQ PRN ×3 (08:22→17:53)
[2022-04-18] MEDS: ATORVASTATIN CALCIUM 40 MG TABLET PO SCH (21:25)
[2022-04-18] MEDS: LORazepam 2 MG TABLET PO PRN (21:28)
[2022-04-18] MEDS: INSULIN GLARGINE,HUM.REC.ANLOG 100 UNITS/ML SQ SCH (21:29)
[2022-04-19] MEDS: INSULIN LISPRO 100 UNITS/ML SQ PRN (13:12)
[2022-04-19] MEDS: LORazepam 2 MG TABLET PO PRN (16:11)
[2022-04-19] MEDS: INSULIN GLARGINE,HUM.REC.ANLOG 100 UNITS/ML SQ SCH (21:33)
[2022-04-19] MEDS: ATORVASTATIN CALCIUM 40 MG TABLET PO SCH (21:33)
[2022-04-19 21:47] LABS: GLUCOSE,POINT OF CARE 361 MG/DL (70-110)
[2022-04-20 05:50] VITALS: BP 126/80
[2022-04-20 06:36] LABS: GLUCOMETER DEV NAME(LOC) BV2S.; GLUCOSE,POINT OF CARE 323 MG/DL (70-110)
[2022-04-20] MEDS: INSULIN LISPRO 100 UNITS/ML SQ PRN ×4 (06:56→20:37)
[2022-04-20] MEDS ORDERED: INFLUENZA VIRUS VACCINE QVS 2022-23 (6MO+)/PF 60 MCG/0.5 ML SYRINGE IM. ONE (07:00)
[2022-04-20 09:14] VITALS: BP 119/73
[2022-04-20] MEDS: LORazepam 2 MG TABLET PO PRN (12:54)
[2022-04-20 13:15] LABS: GLUCOMETER DEV NAME(LOC) BV2S.; GLUCOSE,POINT OF CARE 313 MG/DL (70-110)
[2022-04-20] MEDS: DIVALPROEX SODIUM 500 MG DR TABLET PO SCH (16:37)
[2022-04-20 18:21] LABS: GLUCOMETER DEV NAME(LOC) BV2S.; GLUCOSE,POINT OF CARE 383 MG/DL (70-110)
[2022-04-20 20:31] LABS: GLUCOMETER DEV NAME(LOC) BV2S.; GLUCOSE,POINT OF CARE 335 MG/DL (70-110)
[2022-04-20] MEDS: ATORVASTATIN CALCIUM 40 MG TABLET PO SCH (20:35)
[2022-04-20] MEDS: QUEtiapine FUMARATE 300 MG TABLET PO SCH (20:35)
[2022-04-20] MEDS: INSULIN GLARGINE,HUM.REC.ANLOG 100 UNITS/ML SQ SCH (20:36)
[2022-04-20] MEDS: ZOLPIDEM TARTRATE 10 MG TABLET PO PRN (20:50)
[2022-04-20 21:35] VITALS: BP 108/65
[2022-04-21 06:36] LABS: GLUCOMETER DEV NAME(LOC) BV2S.; GLUCOSE,POINT OF CARE 278 MG/DL (70-110)
[2022-04-21] MEDS: INSULIN LISPRO 100 UNITS/ML SQ PRN ×4 (06:40→20:41)
[2022-04-21 08:41] VITALS: BP 109/69
[2022-04-21] MEDS: DIVALPROEX SODIUM 500 MG DR TABLET PO SCH ×2 (09:09→16:33)
[2022-04-21 11:41] LABS: GLUCOMETER DEV NAME(LOC) BV2S.; GLUCOSE,POINT OF CARE 267 MG/DL (70-110)
[2022-04-21] MEDS: LORazepam 2 MG TABLET PO PRN (11:46)
[2022-04-21 16:36] LABS: GLUCOMETER DEV NAME(LOC) BV2S.; GLUCOSE,POINT OF CARE 355 MG/DL (70-110)
[2022-04-21] MEDS: ATORVASTATIN CALCIUM 40 MG TABLET PO SCH (20:36)
[2022-04-21] MEDS: QUEtiapine FUMARATE 300 MG TABLET PO SCH (20:36)
[2022-04-21 20:41] LABS: GLUCOMETER DEV NAME(LOC) BV2S.; GLUCOSE,POINT OF CARE 238 MG/DL (70-110)
[2022-04-21] MEDS: INSULIN GLARGINE,HUM.REC.ANLOG 100 UNITS/ML SQ SCH (20:41)
[2022-04-21 20:59] VITALS: BP 110/69
[2022-04-22 06:21] LABS: GLUCOMETER DEV NAME(LOC) BV2S.; GLUCOSE,POINT OF CARE 189 MG/DL (70-110)
[2022-04-22] MEDS: INSULIN LISPRO 100 UNITS/ML SQ PRN ×3 (06:38→16:52)
[2022-04-22 08:11] LABS: GLUCOMETER DEV NAME(LOC) POC.BV
[2022-04-22 08:58] VITALS: BP 120/80
[2022-04-22] MEDS: DIVALPROEX SODIUM 500 MG DR TABLET PO SCH ×2 (09:20→16:09)
[2022-04-22 11:37] LABS: GLUCOMETER DEV NAME(LOC) BV2S.; GLUCOSE,POINT OF CARE 222 MG/DL (70-110)
[2022-04-22] MEDS: LORazepam 2 MG TABLET PO PRN ×3 (11:55→21:51)
[2022-04-22 17:19] VITALS: BP 120/72
[2022-04-22 17:36] LABS: GLUCOMETER DEV NAME(LOC) BV2S.; GLUCOSE,POINT OF CARE 291 MG/DL (70-110)
[2022-04-22] MEDS ORDERED: INSULIN LISPRO 100 UNITS/ML SQ ONE (20:30)
[2022-04-22 20:31] LABS: GLUCOMETER DEV NAME(LOC) BV2S.; GLUCOSE,POINT OF CARE 456 MG/DL (70-110)
[2022-04-22] MEDS: ATORVASTATIN CALCIUM 40 MG TABLET PO SCH (20:35)
[2022-04-22] MEDS: QUEtiapine FUMARATE 300 MG TABLET PO SCH (20:35)
[2022-04-22] MEDS: INSULIN GLARGINE,HUM.REC.ANLOG 100 UNITS/ML SQ SCH (20:38)
[2022-04-22 20:43] VITALS: BP 116/72
[2022-04-22] MEDS ORDERED: GLUCAGON,HUMAN RECOMBINANT 1 MG VIAL IM PRN (21:15)
[2022-04-23 00:12] LABS: GLUCOMETER DEV NAME(LOC) BV2S.; GLUCOSE,POINT OF CARE 189 MG/DL (70-110)
[2022-04-23 06:05] LABS: GLUCOMETER DEV NAME(LOC) BV2S.; GLUCOSE,POINT OF CARE 264 MG/DL (70-110)
[2022-04-23] MEDS: INSULIN LISPRO 100 UNITS/ML SQ PRN ×4 (06:45→20:41)
[2022-04-23 08:25] VITALS: BP 107/67
[2022-04-23] MEDS: DIVALPROEX SODIUM 500 MG DR TABLET PO SCH ×2 (09:26→16:37)
[2022-04-23 11:41] LABS: GLUCOMETER DEV NAME(LOC) BV2S.; GLUCOSE,POINT OF CARE 379 MG/DL (70-110)
[2022-04-23 16:26] LABS: GLUCOMETER DEV NAME(LOC) BV2S.; GLUCOSE,POINT OF CARE 312 MG/DL (70-110)
[2022-04-23] MEDS: LORazepam 2 MG TABLET PO PRN (16:37)
[2022-04-23 20:30] LABS: GLUCOMETER DEV NAME(LOC) BV2S.; GLUCOSE,POINT OF CARE 469 MG/DL (70-110)
[2022-04-23] MEDS: QUEtiapine FUMARATE 300 MG TABLET PO SCH (20:37)
[2022-04-23] MEDS: ATORVASTATIN CALCIUM 40 MG TABLET PO SCH (20:37)
[2022-04-23 20:45] VITALS: BP 117/78
[2022-04-23] MEDS ORDERED: INSULIN GLARGINE,HUM.REC.ANLOG 100 UNITS/ML SQ SCH (21:00)
[2022-04-23] MEDS: ZOLPIDEM TARTRATE 10 MG TABLET PO PRN (21:15)
[2022-04-23 22:56] LABS: GLUCOMETER DEV NAME(LOC) BV2S.; GLUCOSE,POINT OF CARE 246 MG/DL (70-110)
[2022-04-24 06:16] LABS: GLUCOMETER DEV NAME(LOC) BV2S.; GLUCOSE,POINT OF CARE 362 MG/DL (70-110)
[2022-04-24] MEDS: INSULIN LISPRO 100 UNITS/ML SQ PRN ×4 (06:35→20:34)
[2022-04-24 08:30] VITALS: BP 100/65
[2022-04-24] MEDS: DIVALPROEX SODIUM 500 MG DR TABLET PO SCH ×2 (09:26→16:18)
[2022-04-24] MEDS: LORazepam 2 MG TABLET PO PRN (10:20)
[2022-04-24 11:21] LABS: GLUCOMETER DEV NAME(LOC) BV2S.; GLUCOSE,POINT OF CARE 338 MG/DL (70-110)
[2022-04-24 17:06] LABS: GLUCOMETER DEV NAME(LOC) BV2S.; GLUCOSE,POINT OF CARE 416 MG/DL (70-110)
[2022-04-24] MEDS ORDERED: GLUCAGON,HUMAN RECOMBINANT 1 MG VIAL IM PRN (17:15)
[2022-04-24 19:21] LABS: GLUCOMETER DEV NAME(LOC) BV2S.; GLUCOSE,POINT OF CARE 407 MG/DL (70-110)
[2022-04-24] MEDS ORDERED: INSULIN GLARGINE,HUM.REC.ANLOG 100 UNITS/ML SQ ONE (19:45)
[2022-04-24] MEDS ORDERED: INSULIN LISPRO 100 UNITS/ML SQ ONE (19:45)
[2022-04-24 20:10] VITALS: BP 140/86
[2022-04-24] MEDS: QUEtiapine FUMARATE 300 MG TABLET PO SCH (20:27)
[2022-04-24] MEDS: ATORVASTATIN CALCIUM 40 MG TABLET PO SCH (20:27)
[2022-04-24] MEDS: ZOLPIDEM TARTRATE 10 MG TABLET PO PRN (20:28)
[2022-04-24] MEDS: INSULIN GLARGINE,HUM.REC.ANLOG 100 UNITS/ML SQ SCH (20:34)
[2022-04-24 21:31] LABS: GLUCOMETER DEV NAME(LOC) BV2S.; GLUCOSE,POINT OF CARE 244 MG/DL (70-110)
[2022-04-25 06:16] LABS: GLUCOMETER DEV NAME(LOC) BV2S.; GLUCOSE,POINT OF CARE 235 MG/DL (70-110)
[2022-04-25] MEDS: INSULIN LISPRO 100 UNITS/ML SQ PRN ×4 (06:42→20:26)
[2022-04-25] MEDS: DIVALPROEX SODIUM 500 MG DR TABLET PO SCH ×2 (08:21→16:44)
[2022-04-25] MEDS: INSULIN GLARGINE,HUM.REC.ANLOG 100 UNITS/ML SQ SCH ×2 (08:30→16:49)
[2022-04-25 08:41] VITALS: BP 109/66
[2022-04-25 11:56] LABS: GLUCOMETER DEV NAME(LOC) BV2S.; GLUCOSE,POINT OF CARE 327 MG/DL (70-110)
[2022-04-25 16:51] LABS: GLUCOMETER DEV NAME(LOC) BV2S.; GLUCOSE,POINT OF CARE 195 MG/DL (70-110)
[2022-04-25] MEDS: LORazepam 2 MG TABLET PO PRN (17:22)
[2022-04-25] MEDS: ATORVASTATIN CALCIUM 40 MG TABLET PO SCH (20:22)
[2022-04-25] MEDS: QUEtiapine FUMARATE 300 MG TABLET PO SCH (20:22)
[2022-04-25 20:28] VITALS: BP 115/78
[2022-04-25 21:22] LABS: GLUCOMETER DEV NAME(LOC) BV2S.; GLUCOSE,POINT OF CARE 362 MG/DL (70-110)
[2022-04-26 06:21] LABS: GLUCOMETER DEV NAME(LOC) BV2S.; GLUCOSE,POINT OF CARE 223 MG/DL (70-110)
[2022-04-26] MEDS: INSULIN LISPRO 100 UNITS/ML SQ PRN ×4 (06:35→22:16)
[2022-04-26 08:25] VITALS: BP 105/67
[2022-04-26] MEDS: DIVALPROEX SODIUM 500 MG DR TABLET PO SCH ×2 (09:03→16:42)
[2022-04-26] MEDS: INSULIN GLARGINE,HUM.REC.ANLOG 100 UNITS/ML SQ SCH ×2 (09:05→16:47)
[2022-04-26] MEDS: LORazepam 2 MG TABLET PO PRN ×2 (10:53→21:06)
[2022-04-26 11:31] LABS: GLUCOMETER DEV NAME(LOC) BV2S.; GLUCOSE,POINT OF CARE 273 MG/DL (70-110)
[2022-04-26 11:31] LABS: GLUCOMETER DEV NAME(LOC) BV2S.; GLUCOSE,POINT OF CARE 428 MG/DL (70-110)
[2022-04-26 16:51] LABS: GLUCOMETER DEV NAME(LOC) BV2S.; GLUCOSE,POINT OF CARE 315 MG/DL (70-110)
[2022-04-26] MEDS: ZOLPIDEM TARTRATE 10 MG TABLET PO PRN (21:06)
[2022-04-26] MEDS: QUEtiapine FUMARATE 300 MG TABLET PO SCH (21:06)
[2022-04-26] MEDS: ATORVASTATIN CALCIUM 40 MG TABLET PO SCH (21:06)
[2022-04-26 21:10] VITALS: BP 115/75
[2022-04-26 21:51] LABS: GLUCOMETER DEV NAME(LOC) BV2S.; GLUCOSE,POINT OF CARE 245 MG/DL (70-110)
[2022-04-27] MEDS: INSULIN LISPRO 100 UNITS/ML SQ PRN ×4 (06:37→20:32)
[2022-04-27 08:32] VITALS: BP 104/60
[2022-04-27] MEDS: DIVALPROEX SODIUM 500 MG DR TABLET PO SCH ×2 (08:44→16:32)
[2022-04-27] MEDS: INSULIN GLARGINE,HUM.REC.ANLOG 100 UNITS/ML SQ SCH ×2 (08:48→16:11)
[2022-04-27 08:55] LABS: GLUCOMETER DEV NAME(LOC) BV2S.; GLUCOSE,POINT OF CARE 219 MG/DL (70-110)
[2022-04-27 08:56] LABS: GLUCOMETER DEV NAME(LOC) BV2S.; GLUCOSE,POINT OF CARE 172 MG/DL (70-110)
[2022-04-27 11:17] LABS: GLUCOMETER DEV NAME(LOC) BV2S.; GLUCOSE,POINT OF CARE 293 MG/DL (70-110)
[2022-04-27] MEDS: LORazepam 2 MG TABLET PO PRN (14:29)
[2022-04-27 16:40] LABS: GLUCOMETER DEV NAME(LOC) BV2S.; GLUCOSE,POINT OF CARE 356 MG/DL (70-110)
[2022-04-27 16:48] VITALS: BP 117/67
[2022-04-27 20:03] VITALS: BP 117/65
[2022-04-27] MEDS: QUEtiapine FUMARATE 300 MG TABLET PO SCH (20:28)
[2022-04-27] MEDS: ATORVASTATIN CALCIUM 40 MG TABLET PO SCH (20:28)
[2022-04-27] MEDS: ZOLPIDEM TARTRATE 10 MG TABLET PO PRN (20:30)
[2022-04-27 20:46] LABS: GLUCOMETER DEV NAME(LOC) BV2S.; GLUCOSE,POINT OF CARE 221 MG/DL (70-110)
[2022-04-28 06:21] LABS: GLUCOMETER DEV NAME(LOC) BV2S.; GLUCOSE,POINT OF CARE 361 MG/DL (70-110)
[2022-04-28] MEDS: INSULIN LISPRO 100 UNITS/ML SQ PRN ×4 (06:41→20:54)
[2022-04-28 08:23] VITALS: BP 117/75
[2022-04-28 08:46] LABS: GLUCOMETER DEV NAME(LOC) BV2S.; GLUCOSE,POINT OF CARE 403 MG/DL (70-110)
[2022-04-28] MEDS: DIVALPROEX SODIUM 500 MG DR TABLET PO SCH ×2 (09:15→16:33)
[2022-04-28] MEDS: INSULIN GLARGINE,HUM.REC.ANLOG 100 UNITS/ML SQ SCH ×3 (09:15→16:52)
[2022-04-28 11:31] LABS: GLUCOMETER DEV NAME(LOC) BV2S.; GLUCOSE,POINT OF CARE 338 MG/DL (70-110)
[2022-04-28] MEDS: LORazepam 2 MG TABLET PO PRN ×2 (15:56→21:15)
[2022-04-28 16:21] LABS: GLUCOMETER DEV NAME(LOC) BV2S.; GLUCOSE,POINT OF CARE 202 MG/DL (70-110)
[2022-04-28] MEDS: ATORVASTATIN CALCIUM 40 MG TABLET PO SCH (20:40)
[2022-04-28] MEDS: QUEtiapine FUMARATE 300 MG TABLET PO SCH (20:40)
[2022-04-28] MEDS: ZOLPIDEM TARTRATE 10 MG TABLET PO PRN (20:40)
[2022-04-28 20:58] VITALS: BP 126/94
[2022-04-28 21:31] LABS: GLUCOMETER DEV NAME(LOC) BV2S.; GLUCOSE,POINT OF CARE 214 MG/DL (70-110)
[2022-04-29 06:21] LABS: GLUCOMETER DEV NAME(LOC) BV2S.; GLUCOSE,POINT OF CARE 213 MG/DL (70-110)
[2022-04-29] MEDS: INSULIN LISPRO 100 UNITS/ML SQ PRN ×4 (07:00→20:35)
[2022-04-29 08:47] VITALS: BP 95/46
[2022-04-29] MEDS: DIVALPROEX SODIUM 500 MG DR TABLET PO SCH ×2 (09:21→16:37)
[2022-04-29] MEDS: INSULIN GLARGINE,HUM.REC.ANLOG 100 UNITS/ML SQ SCH ×2 (09:33→16:42)
[2022-04-29 09:46] LABS: GLUCOMETER DEV NAME(LOC) BV2S.; GLUCOSE,POINT OF CARE 288 MG/DL (70-110)
[2022-04-29 11:18] VITALS: BP 122/65
[2022-04-29] MEDS: LORazepam 2 MG TABLET PO PRN ×2 (11:18→19:37)
[2022-04-29 11:57] LABS: GLUCOMETER DEV NAME(LOC) BV2S.; GLUCOSE,POINT OF CARE 374 MG/DL (70-110)
[2022-04-29 16:30] LABS: GLUCOMETER DEV NAME(LOC) BV2S.; GLUCOSE,POINT OF CARE 286 MG/DL (70-110)
[2022-04-29 20:20] VITALS: BP 115/77
[2022-04-29 20:25] LABS: GLUCOMETER DEV NAME(LOC) BV2S.; GLUCOSE,POINT OF CARE 319 MG/DL (70-110)
[2022-04-29] MEDS: QUEtiapine FUMARATE 300 MG TABLET PO SCH (20:27)
[2022-04-29] MEDS: ATORVASTATIN CALCIUM 40 MG TABLET PO SCH (20:27)
[2022-04-29] MEDS: ZOLPIDEM TARTRATE 10 MG TABLET PO PRN (21:02)
[2022-04-30 06:41] LABS: GLUCOMETER DEV NAME(LOC) BV2S.; GLUCOSE,POINT OF CARE 217 MG/DL (70-110)
[2022-04-30] MEDS: INSULIN LISPRO 100 UNITS/ML SQ PRN ×4 (06:52→20:46)
[2022-04-30 09:15] VITALS: BP 106/62
[2022-04-30] MEDS: DIVALPROEX SODIUM 500 MG DR TABLET PO SCH ×2 (09:51→16:32)
[2022-04-30] MEDS: INSULIN GLARGINE,HUM.REC.ANLOG 100 UNITS/ML SQ SCH ×2 (09:55→16:45)
[2022-04-30] MEDS: LORazepam 2 MG TABLET PO PRN ×2 (10:27→16:32)
[2022-04-30 14:57] LABS: GLUCOMETER DEV NAME(LOC) POC.BV
[2022-04-30 15:21] LABS: GLUCOMETER DEV NAME(LOC) BV2S.; GLUCOSE,POINT OF CARE 273 MG/DL (70-110)
[2022-04-30 16:41] LABS: GLUCOMETER DEV NAME(LOC) BV2S.; GLUCOSE,POINT OF CARE 312 MG/DL (70-110)
[2022-04-30 16:51] LABS: GLUCOMETER DEV NAME(LOC) POC.BV
[2022-04-30] MEDS: ATORVASTATIN CALCIUM 40 MG TABLET PO SCH (20:33)
[2022-04-30] MEDS: QUEtiapine FUMARATE 300 MG TABLET PO SCH (20:33)
[2022-04-30 20:38] VITALS: BP 119/78
[2022-04-30 20:51] LABS: GLUCOMETER DEV NAME(LOC) BV2S.; GLUCOSE,POINT OF CARE 363 MG/DL (70-110)
[2022-04-30] MEDS: ZOLPIDEM TARTRATE 10 MG TABLET PO PRN (20:51)
[2022-05-01 06:16] LABS: GLUCOMETER DEV NAME(LOC) BV2S.; GLUCOSE,POINT OF CARE 265 MG/DL (70-110)
[2022-05-01] MEDS: INSULIN LISPRO 100 UNITS/ML SQ PRN ×4 (06:45→20:19)
[2022-05-01 09:02] VITALS: BP 100/62
[2022-05-01] MEDS: INSULIN GLARGINE,HUM.REC.ANLOG 100 UNITS/ML SQ SCH ×2 (09:21→16:24)
[2022-05-01] MEDS: DIVALPROEX SODIUM 500 MG DR TABLET PO SCH ×2 (09:22→16:19)
[2022-05-01] MEDS: HydrOXYzine PAMOATE 25 MG CAPSULE PO PRN ×2 (13:07→20:17)
[2022-05-01 13:11] LABS: GLUCOMETER DEV NAME(LOC) BV2S.; GLUCOSE,POINT OF CARE 305 MG/DL (70-110)
[2022-05-01 16:46] LABS: GLUCOMETER DEV NAME(LOC) BV2S.; GLUCOSE,POINT OF CARE 203 MG/DL (70-110)
[2022-05-01 20:00] VITALS: BP 116/80
[2022-05-01] MEDS: ATORVASTATIN CALCIUM 40 MG TABLET PO SCH (20:14)
[2022-05-01] MEDS: QUEtiapine FUMARATE 300 MG TABLET PO SCH (20:14)
[2022-05-02 00:47] LABS: GLUCOMETER DEV NAME(LOC) BV2S.; GLUCOSE,POINT OF CARE 351 MG/DL (70-110)
[2022-05-02 00:47] LABS: GLUCOMETER DEV NAME(LOC) BV2S.; GLUCOSE,POINT OF CARE 306 MG/DL (70-110)
[2022-05-02 06:31] LABS: GLUCOMETER DEV NAME(LOC) BV2S.; GLUCOSE,POINT OF CARE 262 MG/DL (70-110)
[2022-05-02] MEDS: INSULIN LISPRO 100 UNITS/ML SQ PRN ×4 (06:31→20:46)
[2022-05-02] MEDS: DIVALPROEX SODIUM 500 MG DR TABLET PO SCH ×2 (09:03→16:45)
[2022-05-02] MEDS: INSULIN GLARGINE,HUM.REC.ANLOG 100 UNITS/ML SQ SCH ×2 (09:06→16:56)
[2022-05-02] MEDS: HydrOXYzine PAMOATE 25 MG CAPSULE PO PRN ×2 (11:27→20:26)
[2022-05-02 11:36] LABS: GLUCOMETER DEV NAME(LOC) BV2S.; GLUCOSE,POINT OF CARE 360 MG/DL (70-110)
[2022-05-02 16:56] LABS: GLUCOMETER DEV NAME(LOC) BV2S.; GLUCOSE,POINT OF CARE 200 MG/DL (70-110)
[2022-05-02] MEDS: ZOLPIDEM TARTRATE 10 MG TABLET PO PRN (20:26)
[2022-05-02] MEDS: ATORVASTATIN CALCIUM 40 MG TABLET PO SCH (20:27)
[2022-05-02] MEDS: QUEtiapine FUMARATE 300 MG TABLET PO SCH (20:27)
[2022-05-02 20:54] VITALS: BP 117/89
[2022-05-02] MEDS: HALOPERIDOL 5 MG TABLET PO PRN (23:43)
[2022-05-03] VITALS: BP 131/85
[2022-05-03 05:06] LABS: GLUCOMETER DEV NAME(LOC) BV2S.; GLUCOSE,POINT OF CARE 272 MG/DL (70-110)
[2022-05-03] MEDS: INSULIN LISPRO 100 UNITS/ML SQ PRN ×4 (07:02→20:28)
[2022-05-03 07:11] LABS: GLUCOMETER DEV NAME(LOC) BV2S.; GLUCOSE,POINT OF CARE 257 MG/DL (70-110)
[2022-05-03 09:00] VITALS: BP 105/62
[2022-05-03] MEDS: DIVALPROEX SODIUM 500 MG DR TABLET PO SCH ×2 (09:13→16:28)
[2022-05-03] MEDS: INSULIN GLARGINE,HUM.REC.ANLOG 100 UNITS/ML SQ SCH ×2 (09:16→16:45)
[2022-05-03 12:10] VITALS: BP 120/75
[2022-05-03] MEDS: HydrOXYzine PAMOATE 25 MG CAPSULE PO PRN (12:14)
[2022-05-03 13:31] LABS: GLUCOMETER DEV NAME(LOC) BV2S.; GLUCOSE,POINT OF CARE 376 MG/DL (70-110)
[2022-05-03 16:56] LABS: GLUCOMETER DEV NAME(LOC) BV2S.; GLUCOSE,POINT OF CARE 192 MG/DL (70-110)
[2022-05-03 20:15] VITALS: BP 115/71
[2022-05-03] MEDS: QUEtiapine FUMARATE 300 MG TABLET PO SCH (20:25)
[2022-05-03] MEDS: ATORVASTATIN CALCIUM 40 MG TABLET PO SCH (20:25)
[2022-05-03] MEDS: ZOLPIDEM TARTRATE 10 MG TABLET PO PRN (20:29)
[2022-05-03 20:56] LABS: GLUCOMETER DEV NAME(LOC) BV2S.; GLUCOSE,POINT OF CARE 287 MG/DL (70-110)
[2022-05-04] MEDS: INSULIN LISPRO 100 UNITS/ML SQ PRN ×4 (06:50→20:55)
[2022-05-04 06:51] LABS: GLUCOMETER DEV NAME(LOC) BV2S.; GLUCOSE,POINT OF CARE 310 MG/DL (70-110)
[2022-05-04 08:08] VITALS: BP 119/71
[2022-05-04] MEDS: DIVALPROEX SODIUM 500 MG DR TABLET PO SCH ×2 (11:21→16:46)
[2022-05-04] MEDS: HydrOXYzine PAMOATE 25 MG CAPSULE PO PRN ×2 (11:22→16:46)
[2022-05-04] MEDS: HALOPERIDOL 5 MG TABLET PO PRN (11:22)
[2022-05-04] MEDS: INSULIN GLARGINE,HUM.REC.ANLOG 100 UNITS/ML SQ SCH ×2 (11:45→16:49)
[2022-05-04 11:46] LABS: GLUCOMETER DEV NAME(LOC) BV2S.; GLUCOSE,POINT OF CARE 442 MG/DL (70-110)
[2022-05-04 14:26] LABS: GLUCOMETER DEV NAME(LOC) BV2S.; GLUCOSE,POINT OF CARE 389 MG/DL (70-110)
[2022-05-04 16:26] LABS: GLUCOMETER DEV NAME(LOC) BV2S.; GLUCOSE,POINT OF CARE 332 MG/DL (70-110)
[2022-05-04] MEDS: GABAPENTIN 300 MG CAPSULE PO SCH (18:23)
[2022-05-04 20:21] LABS: GLUCOMETER DEV NAME(LOC) BV2S.; GLUCOSE,POINT OF CARE 372 MG/DL (70-110)
[2022-05-04 20:29] VITALS: BP 111/71
[2022-05-04] MEDS: QUEtiapine FUMARATE 300 MG TABLET PO SCH (20:32)
[2022-05-04] MEDS: ATORVASTATIN CALCIUM 40 MG TABLET PO SCH (20:32)
[2022-05-04] MEDS: ZOLPIDEM TARTRATE 10 MG TABLET PO PRN (20:54)
[2022-05-05 06:36] LABS: GLUCOMETER DEV NAME(LOC) BV2S.; GLUCOSE,POINT OF CARE 356 MG/DL (70-110)
[2022-05-05] MEDS: INSULIN LISPRO 100 UNITS/ML SQ PRN ×2 (06:37→11:33)
[2022-05-05] MEDS: INSULIN GLARGINE,HUM.REC.ANLOG 100 UNITS/ML SQ SCH (08:59)
[2022-05-05] MEDS: GABAPENTIN 300 MG CAPSULE PO SCH (08:59)
[2022-05-05] MEDS: DIVALPROEX SODIUM 500 MG DR TABLET PO SCH (08:59)
[2022-05-05 10:32] VITALS: BP 104/60
[2022-05-05 11:26] LABS: GLUCOMETER DEV NAME(LOC) BV2S.; GLUCOSE,POINT OF CARE 335 MG/DL (70-110)
[2022-05-05] MEDS ORDERED: GABA-1181 PO ×2 (13:48→14:41)
[2022-05-05] MEDS ORDERED: QUET300T2 PO (13:49)
[2022-05-05] MEDS ORDERED: INSLAN SQ (14:29)
[2022-05-05] MEDS ORDERED: ATOR40TA71 PO (14:29)
[2022-05-05] MEDS ORDERED: DIVA-112 PO (14:41)
[2022-05-05] MEDS ORDERED: QUET300T19 PO (14:41)
== END 2022-05-05 17:19 | disposition home or self-care (01) | DRG 750 ==
LOC: EMS 19:20 → 3EC 04-19 06:27 → AHU 04-19 09:03 → B2S 04-20 03:45
PROVIDERS: ADMIT Psychiatry & Neurology Child & Adolescent Psychiatry; ATTEND Psychiatry & Neurology Child & Adolescent Psychiatry
DX: F25.1 Schizoaffective disorder, depressive type (principal); R45.851 Suicidal ideations; E87.1 Hypo-osmolality and hyponatremia; E11.65 Type 2 diabetes mellitus with hyperglycemia; E78.00 Pure hypercholesterolemia, unspecified; D64.9 Anemia, unspecified; F17.210 Nicotine dependence, cigarettes, uncomplicated; F15.10 Other stimulant abuse, uncomplicated; Z59.00 Homelessness unspecified; Z79.4 Long term (current) use of insulin; Z82.49 Family history of ischemic heart disease and other diseases of the circulatory system; Z83.3 Family history of diabetes mellitus
CPT/HCPCS: 80053; 80164; 81001; 82962; 85025; 99285; G0378; G0480; J1815; J7030